=== PATIENT | female | born 1950 | race Caucasian/White ===

== ENCOUNTER → 2016-08-17 | Outpatient (CLI) | payer MEDICARE ==
--- NOTE | 2016-08-17 12:14 | KCIC ---
Bilateral digital screening mammograms with CAD: HISTORY COMPARISON New baseline. FINDINGS Breast density category B. The skin and nipples show no abnormalities. No abnormal lymph nodes are seen in the axilla. The breast parenchyma shows scattered fibroglandular density. There appear to be small nodular parenchymal densities in the 12 o'clock B position of the right breast which are fairly well-circumscribed and may represent cysts but recommend further evaluation with ultrasound. There are no other dominant masses, suspicious calcifications or architectural distortions. Benign appearing calcifications are present IMPRESSION Small nodular parenchymal densities at the 12 o'clock B position of the right breast. Recommend further evaluation with ultrasound. This study was interpreted with the benefit of Computerized Aided Detection (CAD). Mammography is not 100% sensitive in detecting breast cancer. Therefore, a self breast exam and a clinical breast exam are very important. A negative mammogram does not negate a clinically suspicious finding and should not result in a delay in biopsying a clinically suspicious abnormality. BI-RADS category 0: Incomplete. Ultrasound followup is recommended. This patient's information has been entered into a reminder system for the patient to be notified with the results of this examination and a target date for her next mammograms. Electronically signed by: Viviana Escalona MD (Aug 17, 2016 12:13:12)
== END | disposition home or self-care (01) ==
LOC: KCIC MAMMO 10:45
PROVIDERS: ATTEND Internal Medicine
DX: Z12.31 Encounter for screening mammogram for malignant neoplasm of breast (principal)
CPT/HCPCS: 77052; G0202; 77067

== ENCOUNTER → 2016-08-25 | Outpatient (CLI) | payer MEDICARE ==
--- NOTE | 2016-08-25 17:09 | KCIC ---
Right breast ultrasound: Reason for examination: Parenchymal densities on screening mammogram. Comparison is made to mammographic exam dated 08/17/2016. Ultrasound examination of the right breast and axilla was performed. In the 1 o'clock position deep in the breast, there is some very minimal fibrocystic type changes present. No suspicious lesions are seen. No abnormal lymph nodes are seen in the axilla. Impression: Minimal fibrocystic type changes suggested at the 1 o'clock position deep in the tissue. No suspicious abnormalities seen. Recommend 6 month followup with mammograms and ultrasound. BI-RADS category 3: Probably benign. This patient's information has been entered into a reminder system for the patient to be notified with the results of this examination and a target date for her next mammograms. Electronically signed by: Viviana Escalona MD (Aug 25, 2016 17:07:21)
== END | disposition home or self-care (01) ==
LOC: KCIC US 10:46
PROVIDERS: ATTEND Internal Medicine
DX: R92.8 Other abnormal and inconclusive findings on diagnostic imaging of breast (principal)
CPT/HCPCS: 76641

== ENCOUNTER 2020-03-25 00:29 | Inpatient (IN) | payer MEDICARE ==
[~2020-03-25] VITALS: Ht 165.1 cm; Wt 164.6 kg
[~2020-03-25 00:29] MED LIST: AMLO1CAP PO; ATEN100T PO; CELE200C PO; GLIP10TA24 PO; LEVO50TA5 PO; SITA100T PO; TRIA1TAB3 PO
--- NOTE | 2020-03-25 02:48 | PHYS DOC ---
Past Medical History Past Medical History: Arthritis, CHF, Diabetes-Type II, Hypertension, Hyp othyroid Additional Past Medical Histor: chronic back pain, high altitude pulmonary edema Past Surgical History: Knee Replacement Additional Past Surgical Histo: back Smoking Status: Never Smoker Alcohol Use: None Drug Use: None General Adult EDM: Chief Complaint: WEAKNESS/GENERALIZED HPI: HPI: Patient is a 69 year old female who presents with complaints of generalized weakness. Patient states that in the last 3 days she is noted change in her energy levels. She denies any change in her back pain and even though she fell tonight denies any new pain in her back or sacrum. She does complain of bilateral shoulder pain that is chronic as well. She denied any cough, fever, chest pain, change in shortness of breath, nausea or vomiting. Patient does report a decrease in appetite but denies, melena or hematochezia. She also denies any change in urination, vaginal discharge or new rashes. Patient states that she does ambulate at home. She denies any exposure to COVID, change in smell or taste Review of Systems: Review of Systems: Constitutional: Patient denied fever or chills was not aware that she was running a elevated temperature [] Eyes: Denies change in visual acuity. [] HENT: Denies nasal congestion or sore throat. [] Respiratory: Denies cough or chronic unchanged shortness of breath. [] Cardiovascular: Denies chest pain or edema. [] GI: Denies abdominal pain, nausea, vomiting, bloody stools or diarrhea. [] : Denies dysuria. [] Musculoskeletal: Chronic unchanged back pain and joint pain. [] Integument: Denies rash. [] Neurologic: Denies headache, focal weakness or sensory changes. [] Endocrine: Denies polyuria or polydipsia. [] Lymphatic: Denies swollen glands. [] Psychiatric: Denies depression or anxiety. [] Heart Score: Risk Factors: Risk Factors: DM, Current or recent (<one month) smoker, HTN, HLP, family history of CAD, obesity. Risk Scores: Score 0 - 3: 2.5% MACE over next 6 weeks - Discharge Home Score 4 - 6: 20.3% MACE over next 6 weeks - Admit for Clinical Observation Score 7 - 10: 72.7% MACE over next 6 weeks - Early Invasive Strategies Allergies: Allergies: Allergies Coded Allergies Type Severity Reaction Last Updated Verified phenobarbital Allergy Intermediate Rash 03/10/17 Yes metformin Adverse Reaction Intermediate Nausea and Vomiting 03/12/17 Yes Physical Exam: PE: Constitutional: Well developed, well nourished, morbidly obese no acute distress, non-toxic appearance. [] HENT: Normocephalic, atraumatic, bilateral external ears normal, oropharynx moist, no oral exudates, nose normal. [] Eyes: PERRLA, EOMI, conjunctiva normal, no discharge. [] Neck: Normal range of motion, no tenderness, supple, no stridor. [] Cardiovascular: Distant heart tones [] Lungs & Thorax: Clear anteriorly, no respiratory distress, no change to percussion [] Abdomen: Bowel sounds normal, soft, no tenderness, no masses, no pulsatile masses. [] Skin: Warm, dry, no erythema, chronic appearing rash in the bilateral lower ext remities [] Back: No tenderness, no CVA tenderness. [] Extremities: No tenderness, no cyanosis, no clubbing, ROM intact, marked lymphedema bilaterally [] Neurologic: Alert and oriented X 3, normal motor function, normal sensory function, no focal deficits noted. [] Psychologic: Affect normal, judgement normal, mood normal. [] Current Patient Data: Vital Signs: Vital Signs Date Time Temp Pulse Resp B/P (MAP) Pulse Ox O2 Delivery O2 Flow Rate FiO2 03/25/20 00:50 101.1 94 28 154/64 (94) 97 Nasal Cannula 2.0 101.1 EKG: EKG: [] Radiology/Procedures: Radiology/Procedures: [] Course & Med Decision Making: Course & Med Decision Making Pertinent Labs and Imaging studies reviewed. (See chart for details) 0611-the patient was seen and examined. Patient was reevaluated. Patient is doing well here in the emergency department. Review of her laboratory and x-ray data suggest that she may have a community-acquired pneumonia and/or COVID-19 pneumonitis. However her infectious source may be due to urinary tract infection as well. Patient has been worked up and will be admitted for treatment. Started community-acquired antibiotics Zithromax and Rocephin. Patient will be admitted to the hospitalist service. [] Dragon Disclaimer: Dragon Disclaimer: This electronic medical record was generated, in whole or in part, using a voice recognition dictation system. Departure Departure Impression: Primary Impression: Community acquired pneumonia Qualified Codes: J18.9 - Pneumonia, unspecified organism Additional Impressions: Acute cystitis with hematuria Person under investigation for COVID-19 Morbid obesity Referrals: KRISTA ARNOLD MD (PCP) Justicifation of Admission Dx: Justifications for Admission: Justification of Admission Dx: Yes Comments: Community-acquired pneumonia, fever, leukocytosis, Sirs BENITO HUDSON MD Mar 25, 2020 02:48
[2020-03-25] MEDS ORDERED: KETOROLAC 30 MG/ML VIAL. IVP ONE (03:00)
[2020-03-25 03:24] LABS: BILIRUBIN,URINE SMALL (NEG); CLARITY,URINE CLOUDY; COLOR,URINE AMBER; NITRITE,URINE POSITIVE (NEG); PROTEIN,URINE 100 mg/dL (NEG-TRACE)
[2020-03-25 03:30] LABS: SQUAMOUS EPITHELIAL CELL,UR FEW /LPF
[2020-03-25 03:31] LABS: AMORPHOUS SEDIMENT,UR PRESENT /HPF; BACTERIA,URINE MODERATE /HPF (0-FEW)
--- NOTE | 2020-03-25 04:31 | RAD ---
INDICATION: Reason: fever / Spl. Instructions: / History: COMPARISON: March 2017 FINDINGS: Single view of chest obtained. Cardiac silhouette is enlarged with calcific atherosclerosis. The left lung base is obscured by the overlying cardiac silhouette and lack of lateral view. Degenerative changes of the right shoulder. Fullness of the bilateral pulmonary queenie. Interstitial and groundglass opacities bilaterally. IMPRESSION: * Interstitial and groundglass opacities bilaterally which can be seen with mild edema or interstitial infiltrate. * Enlarged cardiomediastinal silhouette as well as fullness of the bilateral pulmonary hilum again seen. Electronically signed by: Jatinder Boyd MD (03/25/2020 4:28 AM) [id number]
[2020-03-25 04:34] LABS: BASO % 0 % (0-3); EOS % 0 % (0-3); HEMATOCRIT 38.9 % (36.0-47.0); HEMOGLOBIN 12.7 g/dL (12.0-15.5); LYMPH # 0.4 x10^3/uL (1.0-4.8); LYMPH % 2 % (24-48); MEAN CORPUSCULAR HEMOGLOBIN 28 pg (25-35); MEAN CORPUSCULAR HGB CONC 33 g/dL (31-37); MEAN CORPUSCULAR VOLUME 86 fL (79-100); MONO # 0.9 x10^3/uL (0.0-1.1); MONO % 5 % (0-9); NEUT % 92 % (31-73); PLATELET COUNT 122 x10^3/uL (140-400); RED BLOOD COUNT 4.53 x10^6/uL (3.50-5.40); RED CELL DISTRIBUTION WIDTH 16.5 % (11.5-14.5); WHITE BLOOD COUNT 17.3 x10^3/uL (4.0-11.0)
[2020-03-25 04:45] LABS: PROTHROMBIN TIME PATIENT 14.9 SEC (11.7-14.0)
[2020-03-25 04:46] LABS: CALCIUM 8.6 mg/dL (8.5-10.1); CREATININE 1.7 mg/dL (0.6-1.0); GFR 29.9; POTASSIUM 3.7 mmol/L (3.5-5.1)
[2020-03-25 04:51] LABS: ALBUMIN 2.8 g/dL (3.4-5.0); ALBUMIN/GLOBULIN RATIO 0.7 (1.0-1.7); TOTAL BILIRUBIN 1.7 mg/dL (0.2-1.0); TOTAL PROTEIN 6.7 g/dL (6.4-8.2)
[2020-03-25 05:37] LABS: % BANDS 22 % (0-9); % EOS 1 % (0-5); % LYMPHS 1 % (24-48); % METAS 1 % (0-0); % MONOS 3 % (0-10); % SEGS 72 % (35-66)
[2020-03-25 05:38] LABS: PLT ESTIMATE DECREASED (ADEQUATE)
[2020-03-25] MEDS ORDERED: ACETAMINOPHEN 325 MG TABLET. PO PRN ×2 (06:15→13:15)
[2020-03-25] MEDS ORDERED: AZITHROMYCIN 500 MG in IV NORMAL SALINE 250ML 250 ML IV ONE (06:30)
[2020-03-25] MEDS ORDERED: cefTRIAXone IV Push 1 GM VIAL. IVP ONE (06:30)
--- NOTE | 2020-03-25 07:27 | PDOC1 ---
History and Physical Date of Admission Date of Admission DATE: 03/25/20 TIME: 07:21 Identification/Chief Complaint Chief Complaint Myalgias, weakness, Shortness of breath, dysuria Source Source: Patient History of Present Illness History of Present Illness Ms Reyes is a 69 yo F w/ PMHx Arthritis, CHF, Diabetes-Type II, Hypertension, Hypothyroid, chronic back pain, obstructive sleep apnea who presents with complaints of generalized weakness and myalgias. She has been more fatigued over the past 3 days leading up to presentation to the ED. She also notes pain and difficulty with urination which is been progressive as well. She notes chronic pain in her coccyx and sacrum and does note she fell prior to coming to ED and her inability to get up is why she contacted EMS. She fell onto her left side and did not strike her head or arm. She does complain of bilateral shoulder pain that is chronic as well. She does note some shortness of breath worse at night, does not wear her home BIPAP, prefers to wear O2. She denied any cough, fever, chest pain, nausea or vomiting. She denies any exposure to COVID, change in smell or taste. Labs significant for WBC 17.3, Hb 12.7, platelets 122, lactic acid 3.1, BNP 1836, bilirubin 1.7, AST 177, albumin 2.8, NA 137, K3.7, BUN 3 9, CR 1.7, glucose 135. CXR shows interstitial opacities bilaterally. She was febrile to 101.1 F, also hypoxic to 84% on room air, placed on 2L NCO2 with improvement. A COVID 19 test was performed in ED. Admitted for further care. Past Medical History Cardiovascular: HTN Endocrine: Diabetes Past Surgical History Past Surgical History: Total knee replacement Family History Family History: Hypertension Social History Smoke: No ALCOHOL: none Drugs: None Current Problem List Problem List Problems Medical Problems: (1) Acute cystitis with hematuria Status: Acute (2) Community acquired pneumonia Status: Acute (3) Morbid obesity Status: Acute (4) Person under investigation for COVID-19 Status: Acute Current Medications Current Medications Current Medications Ketorolac Tromethamine (Toradol 30mg Vial) 30 mg 1X ONCE IVP Last administered on 03/25/20at 04:00; Start 03/25/20 at 03:00; Stop 8/18/20 at 03:01; Status DC Azithromycin 500 mg/Sodium Chloride 250 ml @ 250 mls/hr 1X ONCE IV Last administered on 03/25/20at 06:19; Start 03/25/20 at 06:30; Stop 03/25/20 at 07:29 Ceftriaxone Sodium (Rocephin) 1 gm 1X ONCE IVP Last administered on 03/25/20at 06:18; Start 03/25/20 at 06:30; Stop 03/25/20 at 06:31; Status DC Acetaminophen (Tylenol) 650 mg PRN Q4HRS PRN PO FEVER > 100.3'F; Start 03/25/20 at 06:15; Stop 03/26/20 at 06:14 Active Scripts Active Reported Lotrel 10-20 Mg Capsule (Amlodipine Besylate/Benazepril) 1 Each Capsule 1 Cap PO DAILY Januvia (Sitagliptin Phosphate) 100 Mg Tablet 1 Tab PO DAILY Triamterene-Hctz 37.5-25 Mg Tb (Triamterene/Hydrochlorothiazid) 1 Each Tablet 1 Tab PO BID Glipizide Er (Glipizide) 10 Mg Tab.er.24 1 Tab PO BID Levothyroxine Sodium 50 Mcg Tablet 1 Tab PO DAILY Atenolol 100 Mg Tablet 1 Tab PO DAILY Celebrex (Celecoxib) 200 Mg Capsule 1 Cap PO DAILY Allergies Allergies: Coded Allergies: phenobarbital (Verified Allergy, Intermediate, Rash, 03/10/17) metformin (Verified Adverse Reaction, Intermediate, Nausea and Vomiting, 03/12/17) ROS General: YES: Chills, Fatigue, Malaise; No: Night Sweats, Appetite, Other PSYCHOLOGICAL ROS: No: Anxiety, Behavioral Disorder, Concentration difficultie, Decreased libido, Depression, Disorientation, Hallucinations, Hostility, Irritablity, Memory difficulties, Mood Swings, Obsessive thoughts, Physical abuse, Sexual abuse, Sleep disturbances, Suicidal ideation, Other Eyes: No Blurry vision, No Decreased vision, No Double vision, No Dry eyes, No Excessive tearing, No Eye Pain, No Itchy Eyes, No Loss of vision, No Photophobia, No Scotomata, No Uses contacts, No Uses glasses, No Other HEENT: No: Heacaches, Visual Changes, Hearing change, Nasal congestion, Nasal discharge, Oral lesions, Sinus pain, Sore Throat, Epistaxis, Sneezing, Snoring, Tinnitus, Vertigo, Vocal changes, Other ALLERGY AND IMMUNOLOGY: No: Hives, Insect Bite Sensitivity, Itchy/Watery Eyes, Nasal Congestion, Post Nasal Drip, Seasonal Allergies, Other Hematological and Lymphatic: No: Bleeding Problems, Blood Clots, Blood Transfusions, Brusing, Night Sweats, Pallor, Swollen Lymph Nodes, Other ENDOCRINE: No: Breast Changes, Galactorrhea, Hair Pattern Changes, Hot Flashes, Malaise/lethargy, Mood Swings, Palpitations, Polydipsia/polyuria, Skin Changes, Temperature Intolerance, Unexpected Weight Changes, Other Breast: No New/Changing Breast Lumps, No Nipple changes, No Nipple discharge, No Other Respiratory: YES: Shortness of breath; No: Cough, Hemoptysis, Orthopnea, Pleuritic Pain, SOB with excertion, Sputum Changes, Stridor, Tachypnea, Wheezing, Other Cardiovascular: yes Edema; No Chest Pain, No Palpitations, No Orthopnea, No Paroxysmal Noc. Dyspnea, No Lt Headedness, No Other Gastrointestinal: No Nausea, No Vomiting, No Abdominal Pain, No Diarrhea, No Constipation, No Melena, No Hematochezia, No Other Genitourinary: YES Dysuria, YES Frequency; No Incontinence, No Hematuria, No Retention, No Discharge, No Urgency, No Pain, No Flank Pain, No Other, No , No , No , No , No , No , No Musculoskeletal: No Gait Disturbance, No Joint Pain, No Joint Stiffness, No Joint Swelling, No Muscle Pain, No Muscular Weakness, No Pain In:, No Swelling In:, No Other Neurological: No Behavorial Changes, No Bowel/Bladder ControlChng, No Confusion, No Dizziness, No Gait Disturbance, No Headaches, No Impaired Coord/balance, No Memory Loss, No Numbness/Tingling, No Seizures, No Speech Problems, No Tremors, No Visual Changes, No Weakness, No Other Skin: Yes Dry Skin, Yes Eczema; No Hair Changes, No Lumps, No Mole Changes, No Mottling, No Nail Changes, No Pruritus, No Rash, No Skin Lesion Changes, No Other, No Acne Physical Exam General: Alert, Oriented X3, Cooperative, mild distress HEENT: Atraumatic, PERRLA, EOMI, Mucous membr. moist/pink Lungs: Other (Bibasilar crackles) Heart: S1S2, RRR, no thrills, no rubs, no gallops, no murmurs Abdomen: Normal bowel sounds, Soft, No tenderness, No hepatosplenomegaly, No masses Rectal Exam: not examined Extremities: No clubbing, No cyanosis, Normal pulses, No tenderness/swelling Skin: No rashes, No breakdown, No significant lesion, Other (Xerosis of bilateral LE) Neuro: Normal speech, Strength at 5/5 X4 ext, Normal tone, Sensation intact, Cranial nerves 3-12 NL, Reflexes 2+ Psych/Mental Status: Mental status NL, Mood NL Vitals Vitals Vital Signs Date Time Temp Pulse Resp B/P (MAP) Pulse Ox O2 Delivery O2 Flow Rate FiO2 03/25/20 06:25 72 96 03/25/20 00:50 101.1 28 154/64 (94) Nasal Cannula 2.0 101.1 Labs Labs Laboratory Tests Test 03/25/20 03:18 03/25/20 04:25 Urine Collection Type U cath Urine Color [place] Urine Clarity Cloudy Urine pH 5.0 (<5.0-8.0) Urine Specific [place] 1.015 (1.000-1.030) Urine Protein 100 mg/dL (NEG-TRACE) Urine Glucose (UA) Negative mg/dL (NEG) Urine Ketones (Stick) Trace mg/dL (NEG) Urine Blood Large (NEG) Urine Nitrite Positive (NEG) Urine Bilirubin Small (NEG) Urine Urobilinogen Dipstick 1.0 mg/dL (0.2 mg/dL) Urine Leukocyte Esterase Moderate (NEG) Urine RBC 6-10 /HPF (0-2) Urine WBC 11-20 /HPF (0-4) Urine Squamous Epithelial Cells Few /LPF Urine Amorphous Sediment Present /HPF Urine Bacteria Moderate /HPF (0-FEW) Urine Mucus Slight /LPF White Blood Count 17.3 x10^3/uL (4.0-11.0) Red Blood Count 4.53 x10^6/uL (3.50-5.40) Hemoglobin 12.7 g/dL (12.0-15.5) Hematocrit 38.9 % (36.0-47.0) Mean Corpuscular Volume 86 fL (79-100) Mean Corpuscular Hemoglobin 28 pg (25-35) Mean Corpuscular Hemoglobin Concent 33 g/dL (31-37) Red Cell Distribution Width 16.5 % (11.5-14.5) Platelet Count 122 x10^3/uL (140-400) Neutrophils (%) (Auto) 92 % (31-73) Lymphocytes (%) (Auto) 2 % (24-48) Monocytes (%) (Auto) 5 % (0-9) Eosinophils (%) (Auto) 0 % (0-3) Basophils (%) (Auto) 0 % (0-3) Neutrophils # (Auto) 16.0 x10^3/uL (1.8-7.7) Lymphocytes # (Auto) 0.4 x10^3/uL (1.0-4.8) Monocytes # (Auto) 0.9 x10^3/uL (0.0-1.1) Eosinophils # (Auto) 0.0 x10^3/uL (0.0-0.7) Basophils # (Auto) 0.0 x10^3/uL (0.0-0.2) Segmented Neutrophils % 72 % (35-66) Band Neutrophils % 22 % (0-9) Lymphocytes % 1 % (24-48) Monocytes % 3 % (0-10) Eosinophils % 1 % (0-5) Metamyelocytes % 1 % (0-0) Platelet Estimate Decreased (ADEQUATE) Prothrombin Time 14.9 SEC (11.7-14.0) Prothromb Time International Ratio 1.2 (0.8-1.1) Sodium Level 137 mmol/L (136-145) Potassium Level 3.7 mmol/L (3.5-5.1) Chloride Level 99 mmol/L (98-107) Carbon Dioxide Level 30 mmol/L (21-32) Anion Gap 8 (6-14) Blood Urea Nitrogen 39 mg/dL (7-20) Creatinine 1.7 mg/dL (0.6-1.0) Estimated GFR (Cockcroft-Gault) 29.9 BUN/Creatinine Ratio 23 (6-20) Glucose Level 135 mg/dL (70-99) Lactic Acid Level 3.1 mmol/L (0.4-2.0) Calcium Level 8.6 mg/dL (8.5-10.1) Total Bilirubin 1.7 mg/dL (0.2-1.0) Aspartate Amino Transf (AST/SGOT) 177 U/L (15-37) Alanine Aminotransferase (ALT/SGPT) 46 U/L (14-59) Alkaline Phosphatase 51 U/L (46-116) SA-Qzd-P-Type Natriuretic Peptide 1836 pg/mL (0-124) Total Protein 6.7 g/dL (6.4-8.2) Albumin 2.8 g/dL (3.4-5.0) Albumin/Globulin Ratio 0.7 (1.0-1.7) Lipase 68 U/L (73-393) Laboratory Tests Test 03/25/20 03:18 03/25/20 04:25 Urine Collection Type U cath Urine Color [place]anna Urine Clarity Cloudy Urine pH 5.0 (<5.0-8.0) Urine Specific [place] 1.015 (1.000-1.030) Urine Protein 100 mg/dL (NEG-TRACE) Urine Glucose (UA) Negative mg/dL (NEG) Urine Ketones (Stick) Trace mg/dL (NEG) Urine Blood Large (NEG) Urine Nitrite Positive (NEG) Urine Bilirubin Small (NEG) Urine Urobilinogen Dipstick 1.0 mg/dL (0.2 mg/dL) Urine Leukocyte Esterase Moderate (NEG) Urine RBC 6-10 /HPF (0-2) Urine WBC 11-20 /HPF (0-4) Urine Squamous Epithelial Cells Few /LPF Urine Amorphous Sediment Present /HPF Urine Bacteria Moderate /HPF (0-FEW) Urine Mucus Slight /LPF White Blood Count 17.3 x10^3/uL (4.0-11.0) Red Blood Count 4.53 x10^6/uL (3.50-5.40) Hemoglobin 12.7 g/dL (12.0-15.5) Hematocrit 38.9 % (36.0-47.0) Mean Corpuscular Volume 86 fL (79-100) Mean Corpuscular Hemoglobin 28 pg (25-35) Mean Corpuscular Hemoglobin Concent 33 g/dL (31-37) Red Cell Distribution Width 16.5 % (11.5-14.5) Platelet Count 122 x10^3/uL (140-400) Neutrophils (%) (Auto) 92 % (31-73) Lymphocytes (%) (Auto) 2 % (24-48) Monocytes (%) (Auto) 5 % (0-9) Eosinophils (%) (Auto) 0 % (0-3) Basophils (%) (Auto) 0 % (0-3) Neutrophils # (Auto) 16.0 x10^3/uL (1.8-7.7) Lymphocytes # (Auto) 0.4 x10^3/uL (1.0-4.8) Monocytes # (Auto) 0.9 x10^3/uL (0.0-1.1) Eosinophils # (Auto) 0.0 x10^3/uL (0.0-0.7) Basophils # (Auto) 0.0 x10^3/uL (0.0-0.2) Segmented Neutrophils % 72 % (35-66) Band Neutrophils % 22 % (0-9) Lymphocytes % 1 % (24-48) Monocytes % 3 % (0-10) Eosinophils % 1 % (0-5) Metamyelocytes % 1 % (0-0) Platelet Estimate Decreased (ADEQUATE) Prothrombin Time 14.9 SEC (11.7-14.0) Prothromb Time International Ratio 1.2 (0.8-1.1) Sodium Level 137 mmol/L (136-145) Potassium Level 3.7 mmol/L (3.5-5.1) Chloride Level 99 mmol/L (98-107) Carbon Dioxide Level 30 mmol/L (21-32) Anion Gap 8 (6-14) Blood Urea Nitrogen 39 mg/dL (7-20) Creatinine 1.7 mg/dL (0.6-1.0) Estimated GFR (Cockcroft-Gault) 29.9 BUN/Creatinine Ratio 23 (6-20) Glucose Level 135 mg/dL (70-99) Lactic Acid Level 3.1 mmol/L (0.4-2.0) Calcium Level 8.6 mg/dL (8.5-10.1) Total Bilirubin 1.7 mg/dL (0.2-1.0) Aspartate Amino Transf (AST/SGOT) 177 U/L (15-37) Alanine Aminotransferase (ALT/SGPT) 46 U/L (14-59) Alkaline Phosphatase 51 U/L (46-116) UE-Yup-U-Type Natriuretic Peptide 1836 pg/mL (0-124) Total Protein 6.7 g/dL (6.4-8.2) Albumin 2.8 g/dL (3.4-5.0) Albumin/Globulin Ratio 0.7 (1.0-1.7) Lipase 68 U/L (73-393) Images Images CXR: Cardiac silhouette is enlarged with calcific atherosclerosis. The left lung base is obscured by the overlying cardiac silhouette and lack of lateral view. Degenerative changes of the right shoulder. Fullness of the bilateral pulmonary queenie. Interstitial and groundglass opacities bilaterally. IMPRESSION: * Interstitial and groundglass opacities bilaterally which can be seen with mild edema or interstitial infiltrate. * Enlarged cardiomediastinal silhouette as well as fullness of the bilateral pulmonary hilum again seen. VTE Prophylaxis Ordered VTE Prophylaxis Devices: Yes VTE Pharmacological Prophylaxi: Yes Assessment/Plan Assessment/Plan A/P: Falls and weakness - likely related to acute UTI. Will treat. PT to assess Gait, OT to assess ADLs Dysuria - empiric rocephin given in ED. D/w ID to change to cefepime given history of UTIs Sepsis - 2/2 likely UTI, will f/u blood cultures and COVID 19 testing as well Acute hypoxia - will given IV lasix x1 and wean O2 as tolerated. No cough. Will f/u COVID 19 test results CLAUDIA - likely vasomotor nephropathy from poor self care recently Arthritis - bilateral shoulders. Voltaren topically prn diastolic CHF - seems to have mild acute CHF, will diurese, monitor I/O Diabetes-Type II - hold metformin for CLAUDIA, sliding scale insulin Hypertension - cont home meds, hold CHRISSY for CLAUDIA Hypothyroid - cont levothyroxine Thrombocytopenia - uncertain etiology, will monitor Obstructive sleep apnea - advised to use BIPAP, she will wear nocturnal O2. Transaminitis - likely congestive hepatopathy, however INR and bilirubin as well as albumin are abnormal, possibly NAFLD. Monitor FEN - ADA diet PPX - heparin. monitor platelets FULL CODE Dispo - inpatient 2 midnights. Justicifation of Admission Dx: Justifications for Admission: Justification of Admission Dx: Yes NICOLASA GALLEGOS MD Mar 25, 2020 07:27
--- NOTE | 2020-03-25 12:15 | PDOC ---
Infectious Disease Note Vital Sign Vital Signs Vital Signs Date Time Temp Pulse Resp B/P (MAP) Pulse Ox O2 Delivery O2 Flow Rate FiO2 03/25/20 10:14 70 95 03/25/20 09:00 22 03/25/20 00:50 101.1 154/64 (94) Nasal Cannula 2.0 101.1 Labs Lab Laboratory Tests Test 03/25/20 03:18 03/25/20 04:25 03/25/20 08:32 03/25/20 11:24 Urine Collection Type U cath Urine Color [place] Urine Clarity Cloudy Urine pH 5.0 (<5.0-8.0) Urine Specific [place] 1.015 (1.000-1.030) Urine Protein 100 mg/dL (NEG-TRACE) Urine Glucose (UA) Negative mg/dL (NEG) Urine Ketones (Stick) Trace mg/dL (NEG) Urine Blood Large (NEG) Urine Nitrite Positive (NEG) Urine Bilirubin Small (NEG) Urine Urobilinogen Dipstick 1.0 mg/dL (0.2 mg/dL) Urine Leukocyte Esterase Moderate (NEG) Urine RBC 6-10 /HPF (0-2) Urine WBC 11-20 /HPF (0-4) Urine Squamous Epithelial Cells Few /LPF Urine Amorphous Sediment Present /HPF Urine Bacteria Moderate /HPF (0-FEW) Urine Mucus Slight /LPF White Blood Count 17.3 x10^3/uL (4.0-11.0) Red Blood Count 4.53 x10^6/uL (3.50-5.40) Hemoglobin 12.7 g/dL (12.0-15.5) Hematocrit 38.9 % (36.0-47.0) Mean Corpuscular Volume 86 fL (79-100) Mean Corpuscular Hemoglobin 28 pg (25-35) Mean Corpuscular Hemoglobin Concent 33 g/dL (31-37) Red Cell Distribution Width 16.5 % (11.5-14.5) Platelet Count 122 x10^3/uL (140-400) Neutrophils (%) (Auto) 92 % (31-73) Lymphocytes (%) (Auto) 2 % (24-48) Monocytes (%) (Auto) 5 % (0-9) Eosinophils (%) (Auto) 0 % (0-3) Basophils (%) (Auto) 0 % (0-3) Neutrophils # (Auto) 16.0 x10^3/uL (1.8-7.7) Lymphocytes # (Auto) 0.4 x10^3/uL (1.0-4.8) Monocytes # (Auto) 0.9 x10^3/uL (0.0-1.1) Eosinophils # (Auto) 0.0 x10^3/uL (0.0-0.7) Basophils # (Auto) 0.0 x10^3/uL (0.0-0.2) Segmented Neutrophils % 72 % (35-66) Band Neutrophils % 22 % (0-9) Lymphocytes % 1 % (24-48) Monocytes % 3 % (0-10) Eosinophils % 1 % (0-5) Metamyelocytes % 1 % (0-0) Platelet Estimate Decreased (ADEQUATE) Prothrombin Time 14.9 SEC (11.7-14.0) Prothromb Time International Ratio 1.2 (0.8-1.1) Sodium Level 137 mmol/L (136-145) Potassium Level 3.7 mmol/L (3.5-5.1) Chloride Level 99 mmol/L (98-107) Carbon Dioxide Level 30 mmol/L (21-32) Anion Gap 8 (6-14) Blood Urea Nitrogen 39 mg/dL (7-20) Creatinine 1.7 mg/dL (0.6-1.0) Estimated GFR (Cockcroft-Gault) 29.9 BUN/Creatinine Ratio 23 (6-20) Glucose Level 135 mg/dL (70-99) Lactic Acid Level 3.1 mmol/L (0.4-2.0) 1.4 mmol/L (0.4-2.0) Calcium Level 8.6 mg/dL (8.5-10.1) Total Bilirubin 1.7 mg/dL (0.2-1.0) Aspartate Amino Transf (AST/SGOT) 177 U/L (15-37) Alanine Aminotransferase (ALT/SGPT) 46 U/L (14-59) Alkaline Phosphatase 51 U/L (46-116) BT-Wxw-U-Type Natriuretic Peptide 1836 pg/mL (0-124) Total Protein 6.7 g/dL (6.4-8.2) Albumin 2.8 g/dL (3.4-5.0) Albumin/Globulin Ratio 0.7 (1.0-1.7) Lipase 68 U/L (73-393) Glucose (Fingerstick) 157 mg/dL (70-99) Objective Assessment Leukocytosis UTI - POA Fever CLAUDIA ? CHF Morbid Obesity Plan Plan of Care Add Cefepime Add zyvox incase Enterococcus with CLAUDIA avoid Vanc F/u labs and cults D/w Dr. Solorzano Thank you # [phone] OTTONIEL ELLSWORTH MD Mar 25, 2020 12:15
--- NOTE | 2020-03-25 12:41 | CONS ---
DATE OF CONSULTATION: 03/25/2020 LOCATION: The patient's room is 648. REQUESTING PHYSICIAN: Dr. Solorzano. REASON FOR CONSULTATION: Pneumonitis. HISTORY OF PRESENT ILLNESS: The patient is a 69-year-old female with massive morbid obesity and diabetes, who complained of generalized weakness, slow onset. For the past 3 days. She denies knowing of any fevers or chills or sweats. She has had no gross cough or chest pain. Denies any dysuria, frequency, or urgency. No diarrhea or constipation. She denies any loss of sense of taste or smell. She has not traveled anywhere and has not had any exposure to anybody outside her home. On arrival, she did have a temperature of 101.1. White blood cell count was elevated at 17.3 with a 22% bands. Urinalysis catheter specimen was collected had nitrite was positive. She had a moderate leukocyte esterase, white blood cells were 11-20, few squamous cells, but she had moderate bacteriuria. Chest x-ray was obtained, showed interstitial ground glass opacities bilaterally, enlarged cardiac mediastinal silhouette. She was given a dose of Rocephin and azithromycin and admitted to the hospital. Currently, she is sitting in a chair and is feeling somewhat more comfortable. PAST MEDICAL HISTORY: Positive for previous urinary tract infections with Escherichia coli, history of obstructive sleep apnea, hypertension, type 2 diabetes, morbid obesity altitude sickness with pulmonary edema. PAST SURGICAL HISTORY: Positive for tonsillectomy, breast biopsies, appendectomy, total abdominal hysterectomy with oophorectomy, back surgery x 2, knee surgeries and carpal tunnel surgery. REVIEW OF SYSTEMS: Otherwise negative except as mentioned above. ALLERGIES: LISTED METFORMIN AND PHENOBARBITAL. SOCIAL HISTORY: She is . No tobacco. No exposure history to any ill contacts. FAMILY HISTORY: Positive for hypertension. CURRENT MEDICATIONS: Azithromycin, Rocephin x 1 and TORADOL. PHYSICAL EXAMINATION: VITAL SIGNS: Temperature is 101.1 at presentation, recent pulse of 70, respirations 22, blood pressure was 154/64. She is on 2 liters nasal cannula, satting 95%. CONSTITUTIONAL: She is sitting upright in a chair. She is pleasant, cooperative. She is in no acute distress. She is morbidly obese. HEENT: Pupils are equal and reactive. She has normal conjunctivae. Oral cavity, pharynx is clear. NECK: Supple, no JVD. LUNGS: Clear to auscultation. HEART: S1, S2. ABDOMEN: Obese, soft, nontender, nondistended, GENITOURINARY: No Shaw is in place. EXTREMITIES: Without clubbing, cyanosis. She has chronic stasis changes and chronic nonpitting edema. SKIN: Warm to touch without signs of generalized rash. NEUROLOGIC: She is nonfocal, answers questions, moves all extremities. PSYCHIATRIC: Affect is appropriate. LABORATORY DATA: White count 17.3, hemoglobin 12.7, platelets 122, 72 segs, 22 bands, 1 lymph. Creatinine 1.7, glucose 135, total bilirubin 1.7, AST 177, ALT 46. BNP of 1836. RADIOLOGY: Reviewed in history of present illness. IMPRESSION: 1. Leukocytosis. 2. Urinary tract infection present on admission. 3. Fever. 4. Acute kidney injury. 5. Congestive heart failure. 6. Morbid obesity. RECOMMENDATIONS: We will add cefepime. We will avoid vancomycin given her acute kidney injury. We will add Zyvox in case Enterococcus is present in the urine. We will follow up labs and cultures. This was discussed with Dr. Solorzano and nursing. Thank you for allowing me to see and participate in the patient's care. Should you have further questions, please do not hesitate to contact me. OTTONIEL ELLSWORTH MD DR: HANNAH/fallon JOB#: [id number] / [id number]
[2020-03-25] MEDS ORDERED: POTASSIUM CHLORIDE 20 MEQ TABLET.ER. PO ONE (13:30)
[2020-03-25] MEDS ORDERED: MINERAL OIL/PETROLATUM TOPICAL CREAM 113GM JAR. TP PRN (13:30)
[2020-03-25] MEDS ORDERED: FUROSEMIDE 40 MG/4 ML VIAL. IVP ONE (13:30)
[2020-03-25] MEDS ORDERED: ROSU5TAB12 PO (13:40)
[2020-03-25] MEDS ORDERED: METO-247 PO (13:40)
[2020-03-25] MEDS ORDERED: ASPI-886 PO (13:40)
[2020-03-25] MEDS ORDERED: LEVO50TA78 PO (13:40)
[2020-03-25] MEDS ORDERED: MELO15TA23 PO (13:40)
[2020-03-25 15:10] VITALS: BP 139/58
[2020-03-25] MEDS: CEFEPIME HCL IV Push 1 GM VIAL. IVP SCH ×2 (15:25→22:00)
[2020-03-25] MEDS: LINEZOLID 600 MG TABLET PO SCH ×2 (15:25→21:00)
[2020-03-25] MEDS: HEPARIN for SUB-Q USE 5,000 UNIT/ML VIAL. SQ SCH ×2 (15:46→22:00)
[2020-03-25] MEDS: ATORVASTATIN CALCIUM 20 MG TABLET PO SCH (21:00)
[2020-03-25 21:29] VITALS: BP 112/57
[2020-03-25 23:00] VITALS: BP 136/79
[2020-03-26 03:00] VITALS: BP 111/70
[2020-03-26] MEDS: CEFEPIME HCL IV Push 1 GM VIAL. IVP SCH ×3 (06:37→20:33)
[2020-03-26] MEDS: HEPARIN for SUB-Q USE 5,000 UNIT/ML VIAL. SQ SCH (06:38)
[2020-03-26 07:00] VITALS: BP 119/52
[2020-03-26 07:36] LABS: BASO % 0 % (0-3); EOS # 0.1 x10^3/uL (0.0-0.7); EOS % 1 % (0-3); HEMATOCRIT 38.4 % (36.0-47.0); HEMOGLOBIN 12.5 g/dL (12.0-15.5); LYMPH # 0.7 x10^3/uL (1.0-4.8); LYMPH % 6 % (24-48); MEAN CORPUSCULAR HEMOGLOBIN 28 pg (25-35); MEAN CORPUSCULAR HGB CONC 33 g/dL (31-37); MEAN CORPUSCULAR VOLUME 86 fL (79-100); MONO # 0.9 x10^3/uL (0.0-1.1); MONO % 8 % (0-9); NEUT # 9.6 x10^3/uL (1.8-7.7); NEUT % 85 % (31-73); PLATELET COUNT 102 x10^3/uL (140-400); RED BLOOD COUNT 4.46 x10^6/uL (3.50-5.40); RED CELL DISTRIBUTION WIDTH 16.8 % (11.5-14.5); WHITE BLOOD COUNT 11.4 x10^3/uL (4.0-11.0)
[2020-03-26 08:09] LABS: ALBUMIN 2.9 g/dL (3.4-5.0); CALCIUM 8.4 mg/dL (8.5-10.1); CREATININE 1.6 mg/dL (0.6-1.0); DIRECT BILIRUBIN 0.8 mg/dL (0.0-0.2); GFR 32.1; MAGNESIUM 2.2 mg/dL (1.8-2.4); POTASSIUM 4.6 mmol/L (3.5-5.1); TOTAL BILIRUBIN 1.2 mg/dL (0.2-1.0); TOTAL PROTEIN 6.7 g/dL (6.4-8.2)
[2020-03-26] MEDS: LINEZOLID 600 MG TABLET PO SCH ×2 (08:55→20:33)
[2020-03-26] MEDS: ASPIRIN ENTERIC COATED 81 MG TABLET.DR. PO SCH (08:55)
[2020-03-26] MEDS: LINAGLIPTIN 5 MG TABLET PO SCH (08:55)
[2020-03-26] MEDS: METOPROLOL SUCC 24HR ER 100 MG TAB.ER.24H. PO SCH (08:55)
[2020-03-26] MEDS: LEVOTHYROXINE 50 MCG TABLET PO SCH (08:55)
[2020-03-26] MEDS: amLODIPine BESYLATE 10 MG TABLET PO SCH (08:56)
[2020-03-26] MEDS: ONDANSETRON PF 4 MG/2 ML VIAL. IVP PRN ×2 (08:59→20:32)
[2020-03-26] MEDS ORDERED: ATENOLOL PO SCH (09:00)
--- NOTE | 2020-03-26 09:23 | PDOC ---
Infectious Disease Note Subjective Subjective No F/C/S/ but does have some nausea no Abd pain Some frequency but no dysuria/odor Vital Sign Vital Signs Vital Signs Date Time Temp Pulse Resp B/P (MAP) Pulse Ox O2 Delivery O2 Flow Rate FiO2 03/26/20 08:56 82 119/52 03/26/20 07:00 97.6 23 96 Nasal Cannula 2.0 97.6 Physical Exam PHYSICAL EXAM CONSTITUTIONAL: She is sitting upright in a chair. She is pleasant, cooperative. She is in no acute distress. She is morbidly obese. HEENT: Pupils are equal and reactive. She has normal conjunctivae. Oral cavity, pharynx is clear. NECK: Supple, no JVD. LUNGS: Clear to auscultation.- on HEART: S1, S2. ABDOMEN: Obese, soft, nontender, nondistended, GENITOURINARY: No Shaw is in place. EXTREMITIES: Without clubbing, cyanosis. She has chronic stasis changes and chronic nonpitting edema. SKIN: Warm to touch without signs of generalized rash. NEUROLOGIC: She is nonfocal, answers questions, moves all extremities. PSYCHIATRIC: Affect is appropriate. Labs Lab Laboratory Tests Test 03/25/20 11:24 03/25/20 15:01 03/26/20 04:50 03/26/20 07:22 Glucose (Fingerstick) 157 mg/dL (70-99) 154 mg/dL (70-99) 112 mg/dL (70-99) White Blood Count 11.4 x10^3/uL (4.0-11.0) Red Blood Count 4.46 x10^6/uL (3.50-5.40) Hemoglobin 12.5 g/dL (12.0-15.5) Hematocrit 38.4 % (36.0-47.0) Mean Corpuscular Volume 86 fL (79-100) Mean Corpuscular Hemoglobin 28 pg (25-35) Mean Corpuscular Hemoglobin Concent 33 g/dL (31-37) Red Cell Distribution Width 16.8 % (11.5-14.5) Platelet Count 102 x10^3/uL (140-400) Neutrophils (%) (Auto) 85 % (31-73) Lymphocytes (%) (Auto) 6 % (24-48) Monocytes (%) (Auto) 8 % (0-9) Eosinophils (%) (Auto) 1 % (0-3) Basophils (%) (Auto) 0 % (0-3) Neutrophils # (Auto) 9.6 x10^3/uL (1.8-7.7) Lymphocytes # (Auto) 0.7 x10^3/uL (1.0-4.8) Monocytes # (Auto) 0.9 x10^3/uL (0.0-1.1) Eosinophils # (Auto) 0.1 x10^3/uL (0.0-0.7) Basophils # (Auto) 0.0 x10^3/uL (0.0-0.2) Sodium Level 138 mmol/L (136-145) Potassium Level 4.6 mmol/L (3.5-5.1) Chloride Level 100 mmol/L (98-107) Carbon Dioxide Level 27 mmol/L (21-32) Anion Gap 11 (6-14) Blood Urea Nitrogen 50 mg/dL (7-20) Creatinine 1.6 mg/dL (0.6-1.0) Estimated GFR (Cockcroft-Gault) 32.1 Glucose Level 115 mg/dL (70-99) Calcium Level 8.4 mg/dL (8.5-10.1) Magnesium Level 2.2 mg/dL (1.8-2.4) Total Bilirubin 1.2 mg/dL (0.2-1.0) Direct Bilirubin 0.8 mg/dL (0.0-0.2) Aspartate Amino Transf (AST/SGOT) 257 U/L (15-37) Alanine Aminotransferase (ALT/SGPT) 97 U/L (14-59) Alkaline Phosphatase 56 U/L (46-116) Total Protein 6.7 g/dL (6.4-8.2) Albumin 2.9 g/dL (3.4-5.0) Micro Microbiology 03/25/20 Blood Culture - Preliminary, Resulted NO GROWTH AFTER 1 DAY Objective Assessment Leukocytosis - better UTI - POA Fever - better Transaminitis CLAUDIA - stable ? CHF Morbid Obesity Plan Plan of Care Added Cefepime/ zyvox 03/25 in case Enterococcus with CLAUDIA avoid Vanc Add lipase Await U/S abd F/u labs and cults -urine D/w OTTONIEL Canseco MD Mar 26, 2020 09:23
--- NOTE | 2020-03-26 10:14 | PDOC ---
[employer] PROGRESS NOTE Date of Service DOS: DATE: 03/26/20 TIME: 10:12 Chief Complaint Chief Complaint A/P: Falls and weakness - likely related to acute UTI. Will treat. PT to assess Gait, OT to assess ADLs Dysuria - empiric rocephin given in ED. D/w ID to change to cefepime given history of UTIs Sepsis - 2/2 likely UTI, will f/u blood cultures and COVID 19 testing as well Acute hypoxia - will given IV lasix x1 and wean O2 as tolerated. No cough. Will f/u COVID 19 test results CLAUDIA - likely vasomotor nephropathy from poor self care recently Arthritis - bilateral shoulders. Voltaren topically prn diastolic CHF - seems to have mild acute CHF, will diurese, monitor I/O Diabetes-Type II - hold metformin for CLAUDIA, sliding scale insulin Hypertension - cont home meds, hold CHRISSY for CLAUDIA Hypothyroid - cont levothyroxine Thrombocytopenia - uncertain etiology, will monitor Obstructive sleep apnea - advised to use BIPAP, she will wear nocturnal O2. Transaminitis - likely congestive hepatopathy, however INR and bilirubin as well as albumin are abnormal, possibly NAFLD. Monitor FEN - ADA diet PPX - heparin. monitor platelets FULL CODE Dispo - inpatient 2 midnights. History of Present Illness History of Present Illness Ms Reyes is a 69 yo F w/ PMHx Arthritis, CHF, Diabetes-Type II, Hypertension, Hypothyroid, chronic back pain, obstructive sleep apnea who presents with complaints of generalized weakness and myalgias. She has been more fatigued over the past 3 days leading up to presentation to the ED. She also notes pain and difficulty with urination which is been progressive as well. She notes chronic pain in her coccyx and sacrum and does note she fell prior to coming to ED and her inability to get up is why she contacted EMS. She fell onto her left side and did not strike her head or arm. She does complain of bilateral shoulder pain that is chronic as well. She does note some shortness of breath worse at night, does not wear her home BIPAP, prefers to wear O2. She denied any cough, fever, chest pain, nausea or vomiting. She denies any exposure to COVID, change in smell or taste. Labs significant for WBC 17.3, Hb 12.7, platelets 122, lactic acid 3.1, BNP 1836, bilirubin 1.7, AST 177, albumin 2.8, NA 137, K3.7, BUN 3 9, CR 1.7, glucose 135. CXR shows interstitial opacities bilaterally. She was febrile to 101.1 F, also hypoxic to 84% on room air, placed on 2L NCO2 with improvement. A COVID 19 test was performed in ED. Admitted for further care. Afebrile overnight. She still feels badly has some abdominal pain and nausea. LFTs have increased slightly. CR improved slightly. COVID-19 test returned negative. Plan: Check right upper quadrant ultrasound, check troponin, Stat EKG, continue telemetry Trend LFTs, nausea control continue inpatient Okay to transfer to [facility] on telemetry monitoring, If troponin elevated, start heparin GTT, consult cardiology. Vitals/I&O Vitals/I&O: Vital Signs Date Time Temp Pulse Resp B/P (MAP) Pulse Ox O2 Delivery O2 Flow Rate FiO2 03/26/20 08:56 82 119/52 03/26/20 07:00 97.6 23 96 Nasal Cannula 2.0 97.6 I & O 03/25/20 03/25/20 03/26/20 15:00 23:00 07:00 Intake Total 250 ml Output Total 600 ml Balance 250 ml -600 ml Physical Exam Physical Exam: CONSTITUTIONAL: She is sitting upright in a chair. She is pleasant, cooperative. She is in no acute distress. She is morbidly obese. HEENT: Pupils are equal and reactive. She has normal conjunctivae. Oral cavity, pharynx is clear. NECK: Supple, no JVD. LUNGS: Clear to auscultation.- on HEART: S1, S2. ABDOMEN: Obese, soft, nontender, nondistended, GENITOURINARY: No Shaw is in place. EXTREMITIES: Without clubbing, cyanosis. She has chronic stasis changes and chronic nonpitting edema. SKIN: Warm to touch without signs of generalized rash. NEUROLOGIC: She is nonfocal, answers questions, moves all extremities. PSYCHIATRIC: Affect is appropriate. General: Alert, Oriented X3, Cooperative, mild distress Lungs: Clear Abdomen: Normal bowel sounds, Soft, No tenderness, No hepatosplenomegaly, No masses Extremities: No clubbing, No cyanosis, Normal pulses, No tenderness/swelling Skin: No rashes, No breakdown, No significant lesion, Other (Xerosis of breana ateral LE) Labs Labs: Laboratory Tests Test 03/25/20 11:24 03/25/20 15:01 03/26/20 04:50 03/26/20 07:22 Glucose (Fingerstick) 157 mg/dL (70-99) 154 mg/dL (70-99) 112 mg/dL (70-99) White Blood Count 11.4 x10^3/uL (4.0-11.0) Red Blood Count 4.46 x10^6/uL (3.50-5.40) Hemoglobin 12.5 g/dL (12.0-15.5) Hematocrit 38.4 % (36.0-47.0) Mean Corpuscular Volume 86 fL (79-100) Mean Corpuscular Hemoglobin 28 pg (25-35) Mean Corpuscular Hemoglobin Concent 33 g/dL (31-37) Red Cell Distribution Width 16.8 % (11.5-14.5) Platelet Count 102 x10^3/uL (140-400) Neutrophils (%) (Auto) 85 % (31-73) Lymphocytes (%) (Auto) 6 % (24-48) Monocytes (%) (Auto) 8 % (0-9) Eosinophils (%) (Auto) 1 % (0-3) Basophils (%) (Auto) 0 % (0-3) Neutrophils # (Auto) 9.6 x10^3/uL (1.8-7.7) Lymphocytes # (Auto) 0.7 x10^3/uL (1.0-4.8) Monocytes # (Auto) 0.9 x10^3/uL (0.0-1.1) Eosinophils # (Auto) 0.1 x10^3/uL (0.0-0.7) Basophils # (Auto) 0.0 x10^3/uL (0.0-0.2) Sodium Level 138 mmol/L (136-145) Potassium Level 4.6 mmol/L (3.5-5.1) Chloride Level 100 mmol/L (98-107) Carbon Dioxide Level 27 mmol/L (21-32) Anion Gap 11 (6-14) Blood Urea Nitrogen 50 mg/dL (7-20) Creatinine 1.6 mg/dL (0.6-1.0) Estimated GFR (Cockcroft-Gault) 32.1 Glucose Level 115 mg/dL (70-99) Calcium Level 8.4 mg/dL (8.5-10.1) Magnesium Level 2.2 mg/dL (1.8-2.4) Total Bilirubin 1.2 mg/dL (0.2-1.0) Direct Bilirubin 0.8 mg/dL (0.0-0.2) Aspartate Amino Transf (AST/SGOT) 257 U/L (15-37) Alanine Aminotransferase (ALT/SGPT) 97 U/L (14-59) Alkaline Phosphatase 56 U/L (46-116) Total Protein 6.7 g/dL (6.4-8.2) Albumin 2.9 g/dL (3.4-5.0) Assessment and Plan Assessmemt and Plan Problems Medical Problems: (1) Acute cystitis with hematuria Status: Acute (2) Community acquired pneumonia Status: Acute (3) Morbid obesity Status: Acute (4) Person under investigation for COVID-19 Status: Acute Comment Review of Relevant I have reviewed the following items lexus (where applicable) has been applied. Medications: Current Medications Medications (Trade) Dose Ordered Sig/Idania Route PRN Reason Start Time Stop Time Status Last Admin Dose Admin Cefepime HCl (Maxipime) 1 gm Q8HRS IVP 03/25/20 14:00 03/26/20 06:37 Linezolid (Zyvox) 600 mg BID PO 03/25/20 14:00 03/26/20 08:55 Ondansetron HCl (Zofran) 4 mg PRN Q6HRS PRN IVP NAUSEA/VOMITING 03/25/20 13:15 03/26/20 08:59 Levothyroxine Sodium (Synthroid) 50 mcg DAILY PO 03/26/20 09:00 03/26/20 08:55 Linagliptin (Tradjenta) 5 mg DAILY PO 03/26/20 09:00 03/26/20 08:55 Amlodipine Besylate (Norvasc) 10 mg DAILY PO 03/26/20 09:00 03/26/20 08:56 Furosemide (Lasix) 40 mg 1X ONCE IVP 03/25/20 13:30 03/25/20 13:31 DC 03/25/20 15:25 Potassium Chloride (Klor-Con) 20 meq 1X ONCE PO 03/25/20 13:30 03/25/20 13:31 DC 03/25/20 15:25 Heparin Sodium (Porcine) (Heparin Sodium) 5,000 unit Q8HRS SQ 03/25/20 14:00 03/26/20 06:38 Aspirin (Ecotrin) 81 mg DAILY PO 03/26/20 09:00 03/26/20 08:55 Metoprolol Succinate (Toprol Xl) 100 mg DAILY PO 03/26/20 09:00 03/26/20 08:55 Atorvastatin Calcium (Lipitor) 20 mg QHS PO 03/25/20 21:00 03/25/20 21:00 Justicifation of Admission Dx: Justifications for Admission: Justification of Admission Dx: Yes NICOLASA GALLEGOS MD Mar 26, 2020 10:14
--- NOTE | 2020-03-26 10:15 | NUR ---
Per Dr. Solorzano no need to re-swab pt for COVID.
[2020-03-26 11:10] VITALS: BP 104/59
[2020-03-26] MEDS ORDERED: ANTI-COAG MONITOR BY PHARMACY. MC PRN (12:45)
[2020-03-26] MEDS ORDERED: HEPARIN for IV BOLUS 10,000 UNIT/10 ML VIAL. IV PRN (12:45)
--- NOTE | 2020-03-26 13:50 | RAD ---
EXAM: RIGHT UPPER QUADRANT ULTRASOUND. HISTORY: Right upper quadrant pain. COMPARISON: 01/10/2006. FINDINGS: Sonographic evaluation of the right upper quadrant was performed. Hyperechogenicity of the hepatic parenchyma is consistent with diffuse hepatic steatosis. The liver is enlarged measuring at least 20.6 cm. There are no focal lesions. A gallstone is noted. There is no pericholecystic fluid or wall thickening. There is no sonographic Clark sign. The common duct measures 6 mm. The visualized portions of the head and body of the pancreas reveal no abnormality. The right kidney measures 11.1 cm. Cortical thickness and echogenicity are preserved. There is no hydronephrosis. The visualized portions of the abdominal aorta and inferior vena cava are grossly patent and normal in caliber. IMPRESSION: 1. Cholelithiasis without sonographic evidence of cholecystitis. 2. Diffuse hepatic steatosis and hepatomegaly. Electronically signed by: Damon Castro MD (03/26/2020 1:47 PM) [id number]
[2020-03-26] MEDS: HEPARIN 25,000UTS/250ML PREMIX 250 ML IV PRN ×2 (14:09→22:01)
--- NOTE | 2020-03-26 14:36 | NUR ---
Wound/Ostomy Care Wound Type/Assessment: consult for possible coccyx wound. No open wounds noted on head to toe skin assessment. Coccyx is red and dry but not open, continue with Calazime cream for protection, WC cushion ordered for pt for PU prevention as pt stated that she likes to sit in recliner. BLE extremely dry, pt could benefit from ammonium lactate lotion. WC will sign off for now. Report given to MIHIR Hightower.
--- NOTE | 2020-03-26 15:45 | EKG ---
[facility] [address] [place] [address] Test Date: 2020-03-26 Test Time: 15:43:03 Pat Name: PRATEEK JOYCE Department: Room: 646 1 Gender: F C.O.D. Clerk: STIVEN : 1950 Requested By: NICOLASA GALLEGOS Order Number: [id number] Reading MD: Measurements Intervals [place]ler Rate: 103 P: MN: QRS: -33 QRSD: 120 T: 72 QT: 366 QTc: 482 Interpretive Statements IRREGULAR RHYTHM, NO P-WAVE FOUND ABNORMAL LEFT AXIS DEVIATION R-S TRANSITION ZONE IN V LEADS DISPLACED TO THE LEFT LEFT ANTERIOR FASCICULAR BLOCK LEFT VENTRICULAR HYPERTROPHY T ABNORMALITY IN HIGH LATERAL LEADS ABNORMAL ECG RI6.02 Compared to ECG 03/10/2017 21:18:31 Left anterior fascicular block now present Left ventricular hypertrophy now present T-wave abnormality now present Sinus rhythm no longer present
[2020-03-26 15:48] VITALS: BP 132/41
--- NOTE | 2020-03-26 15:55 | PDOC2 ---
ANA MARCH BROILER CHEF OR COOK 03/26/20 1555: CARDIAC CONSULT DATE OF CONSULT Date of Consult DATE: 03/26/20 TIME: 15:37 REASON FOR CONSULT Reason for Consult: Elevated troponin REFERRING PHYSICIAN Referring Physician: Dr. Solorzano SOURCE Source: Chart review, Patient HISTORY OF PRESENT ILLNESS HISTORY OF PRESENT ILLNESS This is a 69 yo female who presented secondary to nausea, weakness, abdominal pain, and urinary frequency/incontinence. Patient continue to not feel well despite treatment so troponin obtained. Noted to be mildly elevated, which prompted this consult. She denies any chest pain, palpitations, dizziness, SOA, or diaphoresis. Continue with weakness and nausea. UA notable for UTI. Patient transferred to CV and started on heparin gtt. PAST MEDICAL HISTORY Cardiovascular: CHF, HTN, Hyperlipidemia Pulmonary: Other (SAVAGE) Musculoskeletal: Osteoarthritis Endocrine: Diabetes, Hypothyroidism, Other (morbid obesity ) PAST SURGICAL HISTORY Past Surgical History: Appendectomy, Total knee replacement (bilateral ), Hysterectomy FAMILY HISTORY Family History: Hypertension SOCIAL HISTORY Smoke: No ALCOHOL: none Drugs: None Lives: with Family CURRENT MEDICATIONS CURRENT MEDICATIONS Current Medications Medications (Trade) Dose Ordered Sig/Idania Route PRN Reason Start Time Stop Time Status Last Admin Dose Admin Levothyroxine Sodium (Synthroid) 50 mcg DAILY PO 03/26/20 09:00 03/26/20 08:55 Linagliptin (Tradjenta) 5 mg DAILY PO 03/26/20 09:00 03/26/20 08:55 Amlodipine Besylate (Norvasc) 10 mg DAILY PO 03/26/20 09:00 03/26/20 08:56 Aspirin (Ecotrin) 81 mg DAILY PO 03/26/20 09:00 03/26/20 08:55 Metoprolol Succinate (Toprol Xl) 100 mg DAILY PO 03/26/20 09:00 03/26/20 08:55 Atorvastatin Calcium (Lipitor) 20 mg QHS PO 03/25/20 21:00 03/25/20 21:00 Heparin Sodium/ Dextrose 250 ml @ 0 mls/hr CONT PRN IV PER PROTOCOL 03/26/20 12:45 03/26/20 14:09 ALLERGIES ALLERGIES: Coded Allergies: phenobarbital (Verified Allergy, Intermediate, Rash, 03/10/17) metformin (Verified Adverse Reaction, Intermediate, Nausea and Vomiting, 03/12/17) ROS Review of System 14 point ROS conducted with pertinent positives noted above in HPI PHYSICAL EXAM General: Alert, Oriented X3, Cooperative, No acute distress HEENT: Atraumatic, Mucous membr. moist/pink Lungs: Other (diminished bases) Heart: Other (IRR- AFIB, rate controlled) Abdomen: Soft, No tenderness, Other (obese) Extremities: Other (1-2+ bilateral LE edema) Skin: No significant lesion Neuro: Normal speech, Sensation intact Psych/Mental Status: Mental status NL, Mood NL MUSCULOSKELETAL: Osteoarthritic changes both hands VITALS/I&O VITALS/I&O: Vital Signs Date Time Temp Pulse Resp B/P (MAP) Pulse Ox O2 Delivery O2 Flow Rate FiO2 03/26/20 11:10 97.8 65 23 104/59 (74) 98 Nasal Cannula 2.0 97.8 I & O 03/25/20 03/25/20 03/26/20 15:00 23:00 07:00 Intake Total 250 ml Output Total 600 ml Balance 250 ml -600 ml LABS Lab: Laboratory Tests Test 03/26/20 04:50 03/26/20 07:22 03/26/20 11:45 03/26/20 11:54 White Blood Count 11.4 x10^3/uL (4.0-11.0) H Red Blood Count 4.46 x10^6/uL (3.50-5.40) Hemoglobin 12.5 g/dL (12.0-15.5) Hematocrit 38.4 % (36.0-47.0) Mean Corpuscular Volume 86 fL (79-100) Mean Corpuscular Hemoglobin 28 pg (25-35) Mean Corpuscular Hemoglobin Concent 33 g/dL (31-37) Red Cell Distribution Width 16.8 % (11.5-14.5) H Platelet Count 102 x10^3/uL (140-400) L Neutrophils (%) (Auto) 85 % (31-73) H Lymphocytes (%) (Auto) 6 % (24-48) L Monocytes (%) (Auto) 8 % (0-9) Eosinophils (%) (Auto) 1 % (0-3) Basophils (%) (Auto) 0 % (0-3) Neutrophils # (Auto) 9.6 x10^3/uL (1.8-7.7) H Lymphocytes # (Auto) 0.7 x10^3/uL (1.0-4.8) L Monocytes # (Auto) 0.9 x10^3/uL (0.0-1.1) Eosinophils # (Auto) 0.1 x10^3/uL (0.0-0.7) Basophils # (Auto) 0.0 x10^3/uL (0.0-0.2) Sodium Level 138 mmol/L (136-145) Potassium Level 4.6 mmol/L (3.5-5.1) Chloride Level 100 mmol/L (98-107) Carbon Dioxide Level 27 mmol/L (21-32) Anion Gap 11 (6-14) Blood Urea Nitrogen 50 mg/dL (7-20) H Creatinine 1.6 mg/dL (0.6-1.0) H Estimated GFR (Cockcroft-Gault) 32.1 Glucose Level 115 mg/dL (70-99) H Calcium Level 8.4 mg/dL (8.5-10.1) L Magnesium Level 2.2 mg/dL (1.8-2.4) Total Bilirubin 1.2 mg/dL (0.2-1.0) H Direct Bilirubin 0.8 mg/dL (0.0-0.2) H Aspartate Amino Transferase (AST) 257 U/L (15-37) H Alanine Aminotransferase (ALT) 97 U/L (14-59) H Alkaline Phosphatase 56 U/L (46-116) Total Protein 6.7 g/dL (6.4-8.2) Albumin 2.9 g/dL (3.4-5.0) L Lipase 124 U/L (73-393) Glucose (Fingerstick) 112 mg/dL (70-99) H 136 mg/dL (70-99) H Troponin I Quantitative 0.165 ng/mL (0.000-0.055) Laboratory Tests 03/26/20 04:50 Laboratory Tests 03/26/20 04:50 ASSESSMENT/PLAN ASSESSMENT/PLAN 1. Nausea, weakness, abd pain 2. UTI 3. Leukocytosis, lactic acidosis 4. CLAUDIA 5. Mild troponin elevation; possibly type II, demand ischemia with culprits noted above. On heparin gtt 6. Acute on chronic probable diastolic CHF; better compensated following IV Lasix. 7. PAFIB; intermittent AFIB noted on tele. Rate mostly controlled. No known previous h/o AFIB. 8. Hypertension; controlled 9. Hyperlipidemia; statin. Monitor LFTs 10. Transaminitis 11. SAVAGE, morbid obesity 12. Diabetes, II 13. Hypothyroidism Recommendations ASA, statin therapy Lipid panel, TSH Trend troponin Echo to assess LV systolic function Unfortunately, patients weight limits ability to perform further ischemic evaluation here. Continue metoprolol for rate control Anticoagulation with heparin for now Ongoing treatment of UTI Further pending above. NESS BOJORQUEZ MD 03/26/202021: CARDIAC CONSULT ASSESSMENT/PLAN ASSESSMENT/PLAN Patient seen and examined. Agree with SENIOR JAVA PROGRAMMER ANALYST's assessment and plan. Slight trop elevation probably demand ischemia Check 2D echo possible with optison echo contrast to assess LVF and r/o WMA Brief AF episodes on tele noted, we will consider outpatient event monitor Ac on chr diast HF better compensated Dobutamine gtt stress ATUL is an option considering his morbid obesity, to rule out ischemia - will consider as outpatient Continue current treatment for UTI Thank you for your consultation ANA MARCH APRN Mar 26, 2020 15:55 NESS BOJORQUEZ MD Mar 26, 2020 20:22
--- NOTE | 2020-03-26 17:01 | NUR ---
SW following. Reviewed chart and discussed with RN. Pt on 2l 02. Pt on IV Maxipine. Pt COVID negative. ID and cardiology following. SW to follow for discharge planning as needed.
[2020-03-26 19:00] VITALS: BP 113/52
[2020-03-26] MEDS: ATORVASTATIN CALCIUM 20 MG TABLET PO SCH (20:33)
[2020-03-26] MEDS: LACTOBACILLUS RHAMNOSUS GG 1 CAPSULE. PO SCH (20:33)
[2020-03-26] MEDS: AMMONIUM LACTATE 12% TOPICAL LOTION 226GM BOTTLE. TP SCH (20:33)
[2020-03-26 23:00] VITALS: BP 137/52
[2020-03-27 03:00] VITALS: BP 127/57
[2020-03-27 04:50] LABS: BASO # 0.1 x10^3/uL (0.0-0.2); BASO % 1 % (0-3); EOS # 0.5 x10^3/uL (0.0-0.7); EOS % 5 % (0-3); HEMATOCRIT 38.2 % (36.0-47.0); HEMOGLOBIN 12.5 g/dL (12.0-15.5); LYMPH # 1.1 x10^3/uL (1.0-4.8); LYMPH % 12 % (24-48); MEAN CORPUSCULAR HEMOGLOBIN 28 pg (25-35); MEAN CORPUSCULAR HGB CONC 33 g/dL (31-37); MEAN CORPUSCULAR VOLUME 86 fL (79-100); MONO % 12 % (0-9); NEUT # 6.3 x10^3/uL (1.8-7.7); NEUT % 70 % (31-73); PLATELET COUNT 120 x10^3/uL (140-400); RED BLOOD COUNT 4.46 x10^6/uL (3.50-5.40); RED CELL DISTRIBUTION WIDTH 16.3 % (11.5-14.5); WHITE BLOOD COUNT 8.9 x10^3/uL (4.0-11.0)
[2020-03-27 04:59] LABS: ALBUMIN 2.8 g/dL (3.4-5.0); ALBUMIN/GLOBULIN RATIO 0.6 (1.0-1.7); CALCIUM 8.5 mg/dL (8.5-10.1); CREATININE 1.6 mg/dL (0.6-1.0); GFR 32.1; POTASSIUM 4.3 mmol/L (3.5-5.1); TOTAL BILIRUBIN 1.2 mg/dL (0.2-1.0); TOTAL PROTEIN 7.2 g/dL (6.4-8.2)
[2020-03-27] MEDS: CEFEPIME HCL IV Push 1 GM VIAL. IVP SCH ×3 (06:11→21:15)
[2020-03-27 07:00] VITALS: BP 92/58
[2020-03-27] MEDS: AMMONIUM LACTATE 12% TOPICAL LOTION 226GM BOTTLE. TP SCH ×2 (09:00→21:10)
[2020-03-27] MEDS: amLODIPine BESYLATE 10 MG TABLET PO SCH (09:00)
[2020-03-27] MEDS: METOPROLOL SUCC 24HR ER 100 MG TAB.ER.24H. PO SCH (09:05)
[2020-03-27] MEDS: LINEZOLID 600 MG TABLET PO SCH (09:05)
[2020-03-27] MEDS: LEVOTHYROXINE 50 MCG TABLET PO SCH (09:06)
[2020-03-27] MEDS: LINAGLIPTIN 5 MG TABLET PO SCH (09:06)
[2020-03-27] MEDS: LACTOBACILLUS RHAMNOSUS GG 1 CAPSULE. PO SCH ×2 (09:06→21:10)
[2020-03-27] MEDS: ASPIRIN ENTERIC COATED 81 MG TABLET.DR. PO SCH (09:06)
--- NOTE | 2020-03-27 09:21 | PDOC ---
Infectious Disease Note Subjective Subjective No F/C/S/ but does have some nausea still. Had 3 to 4 loose stools overnight and feels tired. no Abd pain Vital Sign Vital Signs Vital Signs Date Time Temp Pulse Resp B/P (MAP) Pulse Ox O2 Delivery O2 Flow Rate FiO2 03/27/20 09:05 95 92/58 03/27/20 07:00 97.1 18 97 Nasal Cannula 2.0 97.1 Physical Exam PHYSICAL EXAM CONSTITUTIONAL: She is sitting upright in a chair. She is pleasant, cooperative. She is in no acute distress. She is morbidly obese. Looks a touch tired HEENT: Pupils are equal and reactive. She has normal conjunctivae. Oral cavity, pharynx is clear. NECK: Supple, no JVD. LUNGS: Clear to auscultation.- on 02 HEART: S1, S2. ABDOMEN: Obese, soft, nontender, nondistended, GENITOURINARY: No Shaw is in place. EXTREMITIES: Without clubbing, cyanosis. She has chronic stasis changes and chronic nonpitting edema. SKIN: Warm to touch without signs of generalized rash. NEUROLOGIC: She is nonfocal, answers questions, moves all extremities. PSYCHIATRIC: Affect is appropriate. Labs Lab Laboratory Tests Test 03/26/20 11:45 03/26/20 11:54 03/26/20 16:48 03/26/20 17:30 Glucose (Fingerstick) 136 mg/dL (70-99) 118 mg/dL (70-99) Troponin I Quantitative 0.165 ng/mL (0.000-0.055) 0.129 ng/mL (0.000-0.055) Thyroid Stimulating Hormone (TSH) 5.582 uIU/mL (0.358-3.74) Test 03/26/20 20:19 03/26/20 20:46 03/27/20 03:25 03/27/20 05:30 Heparin Anti-Xa Act, Unfractionated 0.63 IU/mL (0.30-0.70) 0.86 IU/mL (0.30-0.70) Glucose (Fingerstick) 148 mg/dL (70-99) White Blood Count 8.9 x10^3/uL (4.0-11.0) Red Blood Count 4.46 x10^6/uL (3.50-5.40) Hemoglobin 12.5 g/dL (12.0-15.5) Hematocrit 38.2 % (36.0-47.0) Mean Corpuscular Volume 86 fL (79-100) Mean Corpuscular Hemoglobin 28 pg (25-35) Mean Corpuscular Hemoglobin Concent 33 g/dL (31-37) Red Cell Distribution Width 16.3 % (11.5-14.5) Platelet Count 120 x10^3/uL (140-400) Neutrophils (%) (Auto) 70 % (31-73) Lymphocytes (%) (Auto) 12 % (24-48) Monocytes (%) (Auto) 12 % (0-9) Eosinophils (%) (Auto) 5 % (0-3) Basophils (%) (Auto) 1 % (0-3) Neutrophils # (Auto) 6.3 x10^3/uL (1.8-7.7) Lymphocytes # (Auto) 1.1 x10^3/uL (1.0-4.8) Monocytes # (Auto) 1.0 x10^3/uL (0.0-1.1) Eosinophils # (Auto) 0.5 x10^3/uL (0.0-0.7) Basophils # (Auto) 0.1 x10^3/uL (0.0-0.2) Sodium Level 137 mmol/L (136-145) Potassium Level 4.3 mmol/L (3.5-5.1) Chloride Level 100 mmol/L (98-107) Carbon Dioxide Level 32 mmol/L (21-32) Anion Gap 5 (6-14) Blood Urea Nitrogen 52 mg/dL (7-20) Creatinine 1.6 mg/dL (0.6-1.0) Estimated GFR (Cockcroft-Gault) 32.1 BUN/Creatinine Ratio 33 (6-20) Glucose Level 137 mg/dL (70-99) Calcium Level 8.5 mg/dL (8.5-10.1) Total Bilirubin 1.2 mg/dL (0.2-1.0) Aspartate Amino Transf (AST/SGOT) 179 U/L (15-37) Alanine Aminotransferase (ALT/SGPT) 97 U/L (14-59) Alkaline Phosphatase 64 U/L (46-116) Total Protein 7.2 g/dL (6.4-8.2) Albumin 2.8 g/dL (3.4-5.0) Albumin/Globulin Ratio 0.6 (1.0-1.7) Test 03/27/20 06:59 Glucose (Fingerstick) 130 mg/dL (70-99) Micro FINAL ID= [KLEBSIELLA PNEUMONIAE] Testing Performed by: [facility] [address] [place] [address] For Inquires, the Physician may contact the Microbiology department at [phone] KLEBSIELLA PNEUMONIAE ANTIMICROBIAL SUSCEPTIBILITY Final Comment NEG CARLITOS 56 KLEBSIELLA PNEUMONIAE ANTIBIOTIC RESULT INTERPRETATION AMPICILLIN/SULBACTAM <=4/2 S AMIKACIN <=16 S AMPICILLIN <=8 R* AMOXICILLIN/K CLAVULANATE <=8/4 S AZTREONAM <=4 S CEFTRIAXONE <=1 S CEFTAZIDIME <=1 S CEFOTAXIME <=2 S CEFOXITIN <=8 S CIPROFLOXACIN <=0.25 S CEFEPIME <=2 S CEFUROXIME <=4 S CEFTAZIDIME/AVIBACTAM <=4 S ERTAPENEM <=0.5 S NITROFURANTOIN <=32 S GENTAMICIN <=2 S LEVOFLOXACIN <=0.5 S MEROPENEM <=1 S PIPERACILLIN/TAZOBACTAM <=8 S TRIMETHOPRIM/SULFAMETHOXAZOLE >2/38 R TETRACYCLINE >8 R TOBRAMYCIN <=2 S ABD U/S 03/26 IMPRESSION: 1. Cholelithiasis without sonographic evidence of cholecystitis. 2. Diffuse hepatic steatosis and hepatomegaly. Microbiology 03/25/20 Blood Culture - Preliminary, Resulted NO GROWTH AFTER 1 DAY Objective Assessment Leukocytosis - better UTI - POA - Klebsiella Nausea Fever - better Transaminitis - some better CLAUDIA - stable ? CHF Morbid Obesity Plan Plan of Care Cont Cefepime zyvox 03/25 in case Enterococcus with CLAUDIA avoid Vanc - given Kleb will d/c zyvox today 03/27 Monitor nausea - hopeful improves off zyvox F/u labs and cults -urine May need GI eval D/w OTTONIEL Canseco MD Mar 27, 2020 09:21
--- NOTE | 2020-03-27 09:56 | NUR ---
MADISON following. Reviewed chart and discussed with RN. Pt on 2l 02. Pt on IV Maxipine. Pt COVID negative. Spoke with pt and pt's today and they are agreeable to SNU referral. MADISON phoned and faxed referral to Radha at [facility], , (fax) at request of pt. Patient Choice of Vendor form completed. MAD[facility] to follow. Addendum: 03/27/20 at 1051 by ABBY WALLACE Radha verified referral was received and MADISON requested she submit for insurance authorization if the facility approves pt clinically. Addendum: 03/27/20 at 1123 by ABBY WALLACE [facility] can't accommodate pt per her weight of 250kg. MADISON faxed referral to Bet[facility] with [facility]. Pt agreeable and stated no preference in SNU provider. Addendum: 03/27/20 at 1311 by ABBY WALLACE Pt also declined by [facility] per 250kg as they can't meet her needs.
[2020-03-27 11:00] VITALS: BP 100/43
--- NOTE | 2020-03-27 11:42 | PDOC ---
ANA MARCH ROSALES 03/27/20 1142: CARDIO Progress Notes Date and Time Date of Service 03/27/20 Time of Evaluation 1120 Subjective Subjective: No Chest Pain, No shortness of breath, Other Vitals Vitals Vital Signs Date Time Temp Pulse Resp B/P (MAP) Pulse Ox O2 Delivery O2 Flow Rate FiO2 03/27/20 11:00 97.9 75 18 100/43 (62) 98 Nasal Cannula 2.0 97.9 Weight Weight [ ] Input and Output Intake and Output Intake and Output 03/27/20 07:00 Intake Total 750 ml Output Total 550 ml Balance 200 ml Intake Oral 750 ml Output Urine Total 550 ml # Voids 3 # Bowel Movements 3 Laboratory Labs Laboratory Tests Test 03/26/20 11:45 03/26/20 11:54 03/26/20 16:48 03/26/20 17:30 Glucose (Fingerstick) 136 mg/dL (70-99) 118 mg/dL (70-99) Troponin I Quantitative 0.165 ng/mL (0.000-0.055) 0.129 ng/mL (0.000-0.055) Thyroid Stimulating Hormone (TSH) 5.582 uIU/mL (0.358-3.74) Test 03/26/20 20:19 03/26/20 20:46 03/27/20 03:25 03/27/20 05:30 Heparin Anti-Xa Act, Unfractionated 0.63 IU/mL (0.30-0.70) 0.86 IU/mL (0.30-0.70) Glucose (Fingerstick) 148 mg/dL (70-99) White Blood Count 8.9 x10^3/uL (4.0-11.0) Red Blood Count 4.46 x10^6/uL (3.50-5.40) Hemoglobin 12.5 g/dL (12.0-15.5) Hematocrit 38.2 % (36.0-47.0) Mean Corpuscular Volume 86 fL (79-100) Mean Corpuscular Hemoglobin 28 pg (25-35) Mean Corpuscular Hemoglobin Concent 33 g/dL (31-37) Red Cell Distribution Width 16.3 % (11.5-14.5) Platelet Count 120 x10^3/uL (140-400) Neutrophils (%) (Auto) 70 % (31-73) Lymphocytes (%) (Auto) 12 % (24-48) Monocytes (%) (Auto) 12 % (0-9) Eosinophils (%) (Auto) 5 % (0-3) Basophils (%) (Auto) 1 % (0-3) Neutrophils # (Auto) 6.3 x10^3/uL (1.8-7.7) Lymphocytes # (Auto) 1.1 x10^3/uL (1.0-4.8) Monocytes # (Auto) 1.0 x10^3/uL (0.0-1.1) Eosinophils # (Auto) 0.5 x10^3/uL (0.0-0.7) Basophils # (Auto) 0.1 x10^3/uL (0.0-0.2) Sodium Level 137 mmol/L (136-145) Potassium Level 4.3 mmol/L (3.5-5.1) Chloride Level 100 mmol/L (98-107) Carbon Dioxide Level 32 mmol/L (21-32) Anion Gap 5 (6-14) Blood Urea Nitrogen 52 mg/dL (7-20) Creatinine 1.6 mg/dL (0.6-1.0) Estimated GFR (Cockcroft-Gault) 32.1 BUN/Creatinine Ratio 33 (6-20) Glucose Level 137 mg/dL (70-99) Calcium Level 8.5 mg/dL (8.5-10.1) Total Bilirubin 1.2 mg/dL (0.2-1.0) Aspartate Amino Transf (AST/SGOT) 179 U/L (15-37) Alanine Aminotransferase (ALT/SGPT) 97 U/L (14-59) Alkaline Phosphatase 64 U/L (46-116) Total Protein 7.2 g/dL (6.4-8.2) Albumin 2.8 g/dL (3.4-5.0) Albumin/Globulin Ratio 0.6 (1.0-1.7) Test 03/27/20 06:59 03/27/20 11:35 Glucose (Fingerstick) 130 mg/dL (70-99) 125 mg/dL (70-99) Microbiology Micro Microbiology 03/25/20 Blood Culture - Preliminary, Resulted NO GROWTH AFTER 2 DAYS 03/25/20 Urine Culture - Final, Complete 03/25/20 Antimicrobic Susceptibility - Final, Complete Physical Exam HEENT: Neck Supple W Full Motion Chest: Symmetric LUNGS: Clear to Auscultation, Other (diminished bases) Heart: S1S2, irregularly irregular (AFIB/flutter ) Abdomen: Soft N/T, Other (obese) Extremities: Other (chronic vasculitis. ) Neurology: alert, oriented, follow commands Assessment Assessment 1. Nausea, weakness, abd pain 2. UTI 3. Leukocytosis, lactic acidosis, bacteremia. 4. CLAUDIA 5. Mild troponin elevation; peak 0.165. most probably type II, demand ischemia with culprits noted above. 6. Acute on chronic probable diastolic CHF; better compensated following IV Lasix. 7. PAFIB/flutter; intermittent AFIB/flutter noted on tele. Rate controlled. No known previous h/o AFIB. 8. Hypertension; controlled 9. Hyperlipidemia; statin. Monitor LFTs 10. Transaminitis; improved 11. SAVAGE, morbid obesity 12. Diabetes, II 13. Hypothyroidism Recommendations ASA, statin therapy D/c heparin from a CV standpoint Echo with contrast today to assess LV systolic function Consider outpatient ischemic evaluation with Dobutamine gtt stress ATUL to rule out ischemia Continue metoprolol for rate control Will use ASA therapy for now. Possible poor candidate for OAC given weakness and recent falls. Outpatient event monitor arranged to assess burden, guide therapy Ongoing treatment of UTI, bacteremia Follow up with Dr. Wood as scheduled. Supportive care Continue current treatment for UTI Thank you for your consultation Justicifation of Admission Dx: Justifications for Admission: Justification of Admission Dx: Yes NESS WOOD MD 03/27/20 1543: CARDIO Progress Notes Assessment Assessment Patient seen and examined. Agree with AUTOMOTIVE PARTS INTERPRETER's assessment and plan. Ac on chr diast HF better compensated Slight trop elevation probably demand ischemia Check 2D echo possible with optison echo contrast to assess LVF and r/o WMA Brief AF episodes on tele noted, plan for outpatient event monitor to assess arrhythmia burden Dobutamine gtt stress ATUL is an option considering her morbid obesity, to rule out ischemia - will consider as outpatient Continue current treatment for UTI ANA MARCH APRN Mar 27, 2020 11:42 NESS WOOD MD Mar 27, 2020 15:43
--- NOTE | 2020-03-27 11:57 | PDOC ---
[facility] PROGRESS NOTE Date of Service DOS: DATE: 03/27/20 TIME: 11:56 Chief Complaint Chief Complaint A/P: Falls and weakness - likely related to acute UTI. Will treat. PT to assess Gait, OT to assess ADLs Dysuria - empiric rocephin given in ED. D/w ID to change to cefepime given history of UTIs Sepsis - 2/2 likely UTI, will f/u blood cultures and COVID 19 testing as well Acute hypoxia - will given IV lasix x1 and wean O2 as tolerated. No cough. Will f/u COVID 19 test results CLAUDIA - likely vasomotor nephropathy from poor self care recently Arthritis - bilateral shoulders. Voltaren topically prn diastolic CHF - seems to have mild acute CHF, will diurese, monitor I/O Diabetes-Type II - hold metformin for CLAUDIA, sliding scale insulin Hypertension - cont home meds, hold CHRISSY for CLAUDIA Hypothyroid - cont levothyroxine Thrombocytopenia - uncertain etiology, will monitor Obstructive sleep apnea - advised to use BIPAP, she will wear nocturnal O2. Transaminitis - likely congestive hepatopathy, however INR and bilirubin as well as albumin are abnormal, possibly NAFLD. Monitor FEN - ADA diet PPX - heparin. monitor platelets FULL CODE Dispo - inpatient 2 midnights. History of Present Illness History of Present Illness Ms Reyes is a 69 yo F w/ PMHx Arthritis, CHF, Diabetes-Type II, Hypertension, Hypothyroid, chronic back pain, obstructive sleep apnea who presents with complaints of generalized weakness and myalgias. She has been more fatigued over the past 3 days leading up to presentation to the ED. She also notes pain and difficulty with urination which is been progressive as well. She notes chronic pain in her coccyx and sacrum and does note she fell prior to coming to ED and her inability to get up is why she contacted EMS. She fell onto her left side and did not strike her head or arm. She does complain of bilateral shoulder pain that is chronic as well. She does note some shortness of breath worse at night, does not wear her home BIPAP, prefers to wear O2. She denied any cough, fever, chest pain, nausea or vomiting. She denies any exposure to COVID, change in smell or taste. Labs significant for WBC 17.3, Hb 12.7, platelets 122, lactic acid 3.1, BNP 1836, bilirubin 1.7, AST 177, albumin 2.8, NA 137, K3.7, BUN 3 9, CR 1.7, glucose 135. CXR shows interstitial opacities bilaterally. She was febrile to 101.1 F, also hypoxic to 84% on room air, placed on 2L NCO2 with improvement. A COVID 19 test was performed in ED. Admitted for further care. 03/26: Pain is not improved. Troponin mildly elevated EKG no signs of STEMI. Upper quadrant with gallstones no acute cholecystitis. Afebrile overnight. She still feels badly has some abdominal pain and nausea. LFTs have increased slightly. CR improved slightly. COVID-19 test returned negative. Urine with Klebsiella pneumonia Plan: Trend LFTs, nausea control continue inpatient Okay to transfer to [facility] on telemetry monitoring Vitals/I&O Vitals/I&O: Vital Signs Date Time Temp Pulse Resp B/P (MAP) Pulse Ox O2 Delivery O2 Flow Rate FiO2 03/27/20 11:00 97.9 75 18 100/43 (62) 98 Nasal Cannula 2.0 97.9 I & O 03/26/20 03/26/20 03/27/20 15:00 23:00 07:00 Intake Total 250 ml 500 ml Output Total 200 ml 350 ml Balance -200 ml 250 ml 150 ml Physical Exam Physical Exam: CONSTITUTIONAL: She is sitting upright in a chair. She is pleasant, cooperative. She is in no acute distress. She is morbidly obese. Looks a touch tired HEENT: Pupils are equal and reactive. She has normal conjunctivae. Oral cavity, pharynx is clear. NECK: Supple, no JVD. LUNGS: Clear to auscultation.- on HEART: S1, S2. ABDOMEN: Obese, soft, nontender, nondistended, GENITOURINARY: No Shaw is in place. EXTREMITIES: Without clubbing, cyanosis. She has chronic stasis changes and chronic nonpitting edema. SKIN: Warm to touch without signs of generalized rash. NEUROLOGIC: She is nonfocal, answers questions, moves all extremities. PSYCHIATRIC: Affect is appropriate. General: Alert, Oriented X3, Cooperative, No acute distress Heart: Other (IRR- AFIB, rate controlled) Lungs: Clear Abdomen: Soft, No tenderness, Other (obese) Extremities: Other (1-2+ bilateral LE edema) Skin: No significant lesion Labs Labs: Laboratory Tests Test 03/26/20 16:48 03/26/20 17:30 03/26/20 20:19 03/26/20 20:46 Glucose (Fingerstick) 118 mg/dL (70-99) 148 mg/dL (70-99) Troponin I Quantitative 0.129 ng/mL (0.000-0.055) Heparin Anti-Xa Act, Unfractionated 0.63 IU/mL (0.30-0.70) Test 03/27/20 03:25 03/27/20 05:30 03/27/20 06:59 03/27/20 11:35 White Blood Count 8.9 x10^3/uL (4.0-11.0) Red Blood Count 4.46 x10^6/uL (3.50-5.40) Hemoglobin 12.5 g/dL (12.0-15.5) Hematocrit 38.2 % (36.0-47.0) Mean Corpuscular Volume 86 fL (79-100) Mean Corpuscular Hemoglobin 28 pg (25-35) Mean Corpuscular Hemoglobin Concent 33 g/dL (31-37) Red Cell Distribution Width 16.3 % (11.5-14.5) Platelet Count 120 x10^3/uL (140-400) Neutrophils (%) (Auto) 70 % (31-73) Lymphocytes (%) (Auto) 12 % (24-48) Monocytes (%) (Auto) 12 % (0-9) Eosinophils (%) (Auto) 5 % (0-3) Basophils (%) (Auto) 1 % (0-3) Neutrophils # (Auto) 6.3 x10^3/uL (1.8-7.7) Lymphocytes # (Auto) 1.1 x10^3/uL (1.0-4.8) Monocytes # (Auto) 1.0 x10^3/uL (0.0-1.1) Eosinophils # (Auto) 0.5 x10^3/uL (0.0-0.7) Basophils # (Auto) 0.1 x10^3/uL (0.0-0.2) Sodium Level 137 mmol/L (136-145) Potassium Level 4.3 mmol/L (3.5-5.1) Chloride Level 100 mmol/L (98-107) Carbon Dioxide Level 32 mmol/L (21-32) Anion Gap 5 (6-14) Blood Urea Nitrogen 52 mg/dL (7-20) Creatinine 1.6 mg/dL (0.6-1.0) Estimated GFR (Cockcroft-Gault) 32.1 BUN/Creatinine Ratio 33 (6-20) Glucose Level 137 mg/dL (70-99) Calcium Level 8.5 mg/dL (8.5-10.1) Total Bilirubin 1.2 mg/dL (0.2-1.0) Aspartate Amino Transf (AST/SGOT) 179 U/L (15-37) Alanine Aminotransferase (ALT/SGPT) 97 U/L (14-59) Alkaline Phosphatase 64 U/L (46-116) Total Protein 7.2 g/dL (6.4-8.2) Albumin 2.8 g/dL (3.4-5.0) Albumin/Globulin Ratio 0.6 (1.0-1.7) Heparin Anti-Xa Act, Unfractionated 0.86 IU/mL (0.30-0.70) Glucose (Fingerstick) 130 mg/dL (70-99) 125 mg/dL (70-99) Assessment and Plan Assessmemt and Plan Problems Medical Problems: (1) Acute cystitis with hematuria Status: Acute (2) Community acquired pneumonia Status: Acute (3) Morbid obesity Status: Acute (4) Person under investigation for COVID-19 Status: Acute Comment Review of Relevant I have reviewed the following items lexus (where applicable) has been applied. Medications: Current Medications Medications (Trade) Dose Ordered Sig/Idania Route PRN Reason Start Time Stop Time Status Last Admin Dose Admin Lactobacillus Rhamnosus (Culturelle) 1 cap BID PO 03/26/20 21:00 03/27/20 09:06 Heparin Sodium/ Dextrose 250 ml @ 0 mls/hr CONT PRN IV PER PROTOCOL 03/26/20 12:45 03/26/20 22:01 Lactic Acid (Lac-Hydrin) 1 duncan BID TP 03/26/20 21:00 03/26/20 20:33 Justicifation of Admission Dx: Justifications for Admission: Justification of Admission Dx: Yes NICOLASA GALLEGOS MD Mar 27, 2020 11:57
[2020-03-27] MEDS: HEPARIN for SUB-Q USE 5,000 UNIT/ML VIAL. SQ SCH ×2 (14:22→21:23)
[2020-03-27 15:00] VITALS: BP 119/57
[2020-03-27 19:00] VITALS: BP 105/53
--- NOTE | 2020-03-27 19:40 | NUR ---
Pt sitting up in chair, pt denied pain at this time. Assessment completed vss poc explained call light i n reach will resume care and continue to monitor pt.
[2020-03-27] MEDS: ATORVASTATIN CALCIUM 20 MG TABLET PO SCH (21:10)
[2020-03-27 22:33] VITALS: BP 129/47
[2020-03-28 02:56] VITALS: BP 120/63
[2020-03-28 05:36] LABS: ALBUMIN 2.6 g/dL (3.4-5.0); ALBUMIN/GLOBULIN RATIO 0.6 (1.0-1.7); CALCIUM 8.7 mg/dL (8.5-10.1); CREATININE 1.2 mg/dL (0.6-1.0); GFR 44.7; POTASSIUM 4.6 mmol/L (3.5-5.1); TOTAL BILIRUBIN 0.9 mg/dL (0.2-1.0); TOTAL PROTEIN 7.1 g/dL (6.4-8.2)
[2020-03-28] MEDS: LEVOTHYROXINE 25 MCG TABLET. PO SCH (06:07)
[2020-03-28] MEDS: CEFEPIME HCL IV Push 1 GM VIAL. IVP SCH ×3 (06:07→21:35)
[2020-03-28] MEDS: HEPARIN for SUB-Q USE 5,000 UNIT/ML VIAL. SQ SCH (06:10)
[2020-03-28 07:00] VITALS: BP 137/70
[2020-03-28] MEDS: LACTOBACILLUS RHAMNOSUS GG 1 CAPSULE. PO SCH ×2 (08:30→21:34)
[2020-03-28] MEDS: amLODIPine BESYLATE 10 MG TABLET PO SCH (08:30)
[2020-03-28] MEDS: ASPIRIN ENTERIC COATED 81 MG TABLET.DR. PO SCH (08:30)
[2020-03-28] MEDS: AMMONIUM LACTATE 12% TOPICAL LOTION 226GM BOTTLE. TP SCH ×2 (08:30→21:34)
[2020-03-28] MEDS: LINAGLIPTIN 5 MG TABLET PO SCH (08:30)
[2020-03-28] MEDS: METOPROLOL SUCC 24HR ER 100 MG TAB.ER.24H. PO SCH (08:30)
--- NOTE | 2020-03-28 08:43 | PDOC ---
JULIA CHRISTENSEN REMELT [employer] TANK OPERATOR 03/28/20 0843: CARDIO Progress Notes Date and Time Date of Service 03/28/2020 Time of Evaluation 1200 Subjective Subjective: No Chest Pain, No shortness of breath, No Palpitations Vitals Vitals Vital Signs Date Time Temp Pulse Resp B/P (MAP) Pulse Ox O2 Delivery O2 Flow Rate FiO2 03/28/20 08:30 105 137/70 03/28/20 02:56 96.6 18 96 Nasal Cannula 2.0 96.6 Weight Weight [ ] Input and Output Intake and Output Intake and Output 03/28/20 07:00 Output Total 350 ml Balance -350 ml Output Urine Total 350 ml # Bowel Movements 2 Laboratory Labs Laboratory Tests Test 03/27/20 11:35 03/27/20 17:02 03/27/20 20:16 03/28/20 04:00 Glucose (Fingerstick) 125 mg/dL (70-99) 133 mg/dL (70-99) 196 mg/dL (70-99) Sodium Level 135 mmol/L (136-145) Potassium Level 4.6 mmol/L (3.5-5.1) Chloride Level 102 mmol/L (98-107) Carbon Dioxide Level 25 mmol/L (21-32) Anion Gap 8 (6-14) Blood Urea Nitrogen 42 mg/dL (7-20) Creatinine 1.2 mg/dL (0.6-1.0) Estimated GFR (Cockcroft-Gault) 44.7 BUN/Creatinine Ratio 35 (6-20) Glucose Level 124 mg/dL (70-99) Calcium Level 8.7 mg/dL (8.5-10.1) Total Bilirubin 0.9 mg/dL (0.2-1.0) Aspartate Amino Transf (AST/SGOT) 105 U/L (15-37) Alanine Aminotransferase (ALT/SGPT) 96 U/L (14-59) Alkaline Phosphatase 63 U/L (46-116) Total Protein 7.1 g/dL (6.4-8.2) Albumin 2.6 g/dL (3.4-5.0) Albumin/Globulin Ratio 0.6 (1.0-1.7) Test 03/28/20 08:08 Glucose (Fingerstick) 133 mg/dL (70-99) Microbiology Micro Microbiology 03/25/20 Blood Culture - Preliminary, Resulted NO GROWTH AFTER 3 DAYS 03/25/20 Urine Culture - Final, Complete 03/25/20 Antimicrobic Susceptibility - Final, Complete Physical Exam HEENT: Neck Supple W Full Motion Chest: Symmetric LUNGS: Other (diminished bases) Heart: irregularly irregular (atrial flutter) Abdomen: Soft N/T, Other (obese) Extremities: Other (chronic lymphedema) Neurology: alert, oriented, follow commands Assessment Assessment 1. Nausea, weakness, abd pain: better 2. UTI 3. Leukocytosis, lactic acidosis, bacteremia. 4. CLAUDIA: much improved 5. Mild troponin elevation; peak 0.165. most probably type II, demand ischemia with culprits noted above. 6. Acute on chronic probable diastolic CHF; better compensated 7. PAFIB/flutter; maintaing rate controlled atrial flutter 8. Hypertension; controlled 9. Hyperlipidemia 10. Transaminitis; improved 11. SAVAGE, morbid obesity 12. Diabetes, II 13. Hypothyroidism Recommendations 1. ASA, statin therapy. Will start on coumadin for stroke prevention. Not ideal for DOAC due to significant wt. 2. Echo with contrast to assess LV systolic function 3. Consider outpatient ischemic evaluation with Dobutamine gtt stress ATUL to rule out ischemia. Also potential outpt CVN if no conversion after sufficient anticoagulation 4. Continue metoprolol for rate control 5. Ongoing treatment of UTI, bacteremia 6. Follow up with Dr. Bojorquez as scheduled. 7. Discussed compliance of CPAP as she does not use this claiming due to recliner use. Justicifation of Admission Dx: Justifications for Admission: Justification of Admission Dx: Yes NESS BOJORQUEZ MD 03/28/20 1746: CARDIO Progress Notes Assessment Assessment Patient seen and examined. Agree with SPIKE MAKER's assessment and plan. Ac on chr diast HF better compensated Slight trop elevation probably demand ischemia 2D echo showed LVEF 50 to 55%. Plan outpatient event monitor and possibly dobutamine ATUL Okay for DC from cardiac standpoint. Follow-up with our office as scheduled. JULIA CHRISTENSEN APRN Mar 28, 2020 08:43 NESS BOJORQUEZ MD Mar 28, 2020 17:46
[2020-03-28] MEDS: UREA 40% TOPICAL CREAM 28.3GM TUBE. TP SCH (09:00)
--- NOTE | 2020-03-28 09:20 | PDOC ---
Infectious Disease Note Subjective Subjective No F/C/S/ but does have some nausea still started back last pm. Also still loose stools overnight and feels tired. no Abd pain. Some better Vital Sign Vital Signs Vital Signs Date Time Temp Pulse Resp B/P (MAP) Pulse Ox O2 Delivery O2 Flow Rate FiO2 03/28/20 08:30 105 137/70 03/28/20 07:00 97.2 19 95 Nasal Cannula 4.0 97.2 Physical Exam PHYSICAL EXAM CONSTITUTIONAL: She is sitting upright in a chair. She is pleasant, cooperative. She is in no acute distress. She is morbidly obese. Looks a touch tired HEENT: Pupils are equal and reactive. She has normal conjunctivae. Oral cavity, pharynx is clear. NECK: Supple, no JVD. LUNGS: Clear to auscultation.- on 02 HEART: S1, S2. ABDOMEN: Obese, soft, nontender, nondistended, GENITOURINARY: No Shaw is in place. EXTREMITIES: Without clubbing, cyanosis. She has chronic stasis changes and chronic nonpitting edema. SKIN: Warm to touch without signs of generalized rash. NEUROLOGIC: She is nonfocal, answers questions, moves all extremities. PSYCHIATRIC: Affect is appropriate. Labs Lab Laboratory Tests Test 03/27/20 11:35 03/27/20 17:02 03/27/20 20:16 03/28/20 04:00 Glucose (Fingerstick) 125 mg/dL (70-99) 133 mg/dL (70-99) 196 mg/dL (70-99) Sodium Level 135 mmol/L (136-145) Potassium Level 4.6 mmol/L (3.5-5.1) Chloride Level 102 mmol/L (98-107) Carbon Dioxide Level 25 mmol/L (21-32) Anion Gap 8 (6-14) Blood Urea Nitrogen 42 mg/dL (7-20) Creatinine 1.2 mg/dL (0.6-1.0) Estimated GFR (Cockcroft-Gault) 44.7 BUN/Creatinine Ratio 35 (6-20) Glucose Level 124 mg/dL (70-99) Calcium Level 8.7 mg/dL (8.5-10.1) Total Bilirubin 0.9 mg/dL (0.2-1.0) Aspartate Amino Transf (AST/SGOT) 105 U/L (15-37) Alanine Aminotransferase (ALT/SGPT) 96 U/L (14-59) Alkaline Phosphatase 63 U/L (46-116) Total Protein 7.1 g/dL (6.4-8.2) Albumin 2.6 g/dL (3.4-5.0) Albumin/Globulin Ratio 0.6 (1.0-1.7) Test 03/28/20 08:08 Glucose (Fingerstick) 133 mg/dL (70-99) Micro FINAL ID= [KLEBSIELLA PNEUMONIAE] Testing Performed by: [facility] [address] [place] [address] For Inquires, the Physician may contact the Microbiology department at [phone] KLEBSIELLA PNEUMONIAE ANTIMICROBIAL SUSCEPTIBILITY Final Comment NEG CARLITOS 56 KLEBSIELLA PNEUMONIAE ANTIBIOTIC RESULT INTERPRETATION AMPICILLIN/SULBACTAM <=4/2 S AMIKACIN <=16 S AMPICILLIN <=8 R* AMOXICILLIN/K CLAVULANATE <=8/4 S AZTREONAM <=4 S CEFTRIAXONE <=1 S CEFTAZIDIME <=1 S CEFOTAXIME <=2 S CEFOXITIN <=8 S CIPROFLOXACIN <=0.25 S CEFEPIME <=2 S CEFUROXIME <=4 S CEFTAZIDIME/AVIBACTAM <=4 S ERTAPENEM <=0.5 S NITROFURANTOIN <=32 S GENTAMICIN <=2 S LEVOFLOXACIN <=0.5 S MEROPENEM <=1 S PIPERACILLIN/TAZOBACTAM <=8 S TRIMETHOPRIM/SULFAMETHOXAZOLE >2/38 R TETRACYCLINE >8 R TOBRAMYCIN <=2 S ABD U/S 03/26 IMPRESSION: 1. Cholelithiasis without sonographic evidence of cholecystitis. 2. Diffuse hepatic steatosis and hepatomegaly. Microbiology 03/25/20 Blood Culture - Preliminary, Resulted NO GROWTH AFTER 1 DAY Objective Assessment Kleb Vericola sepsis - 03/25 Leukocytosis - better UTI - POA - Klebsiella pneum Nausea - was better but returned last pm Fever - better Transaminitis - some better CLAUDIA - stable ? CHF Morbid Obesity Plan Plan of Care Cont Cefepime D/c zyvox 03/25 - 03/27 Monitor nausea/loose stool - no F or cramps F/u labs and cults -urine May need GI eval D/w OTTONIEL Canseco MD Mar 28, 2020 09:20
[2020-03-28] MEDS ORDERED: PERFLUTREN PROTEIN-A MICROSPHR 0.22 MG/ML 3 ML VIAL. IV ONE ×2 (10:06→11:00)
[2020-03-28 11:00] VITALS: BP 135/64
--- NOTE | 2020-03-28 12:23 | PDOC ---
[employer] PROGRESS NOTE Date of Service DOS: DATE: 03/28/20 TIME: 12:21 Chief Complaint Chief Complaint A/P: Gram negative bacteremia - Klebsiella variicola in blood. ID consulted Falls and weakness - likely related to acute UTI. Will treat. PT to assess Gait, OT to assess ADLs Dysuria - empiric rocephin given in ED. D/w ID to change to cefepime given history of UTIs Sepsis - 2/2 likely UTI, will f/u blood cultures and COVID 19 testing as well Acute hypoxia - will given IV lasix x1 and wean O2 as tolerated. No cough. Will f/u COVID 19 test results CLAUDIA - likely vasomotor nephropathy from poor self care recently Arthritis - bilateral shoulders. Voltaren topically prn diastolic CHF - seems to have mild acute CHF, will diurese, monitor I/O Diabetes-Type II - hold metformin for CLAUDIA, sliding scale insulin Hypertension - cont home meds, hold CHRISSY for CLAUDIA Hypothyroid - cont levothyroxine Thrombocytopenia - uncertain etiology, will monitor Obstructive sleep apnea - advised to use BIPAP, she will wear nocturnal O2. Transaminitis - likely congestive hepatopathy, however INR and bilirubin as well as albumin are abnormal, possibly NAFLD. Monitor FEN - ADA diet PPX - heparin. monitor platelets FULL CODE Dispo - inpatient 2 midnights. History of Present Illness History of Present Illness Ms Reyes is a 69 yo F w/ PMHx Arthritis, CHF, Diabetes-Type II, Hypertension, Hypothyroid, chronic back pain, obstructive sleep apnea who presents with complaints of generalized weakness and myalgias. She has been more fatigued over the past 3 days leading up to presentation to the ED. She also notes pain and difficulty with urination which is been progressive as well. She notes chronic pain in her coccyx and sacrum and does note she fell prior to coming to ED and her inability to get up is why she contacted EMS. She fell onto her left side and did not strike her head or arm. She does complain of bilateral maricruz ulder pain that is chronic as well. She does note some shortness of breath worse at night, does not wear her home BIPAP, prefers to wear O2. She denied any cough, fever, chest pain, nausea or vomiting. She denies any exposure to COVID, change in smell or taste. Labs significant for WBC 17.3, Hb 12.7, platelets 122, lactic acid 3.1, BNP 1836, bilirubin 1.7, AST 177, albumin 2.8, NA 137, K3.7, BUN 3 9, CR 1.7, glucose 135. CXR shows interstitial opacities bilaterally. She was febrile to 101.1 F, also hypoxic to 84% on room air, placed on 2L NCO2 with improvement. A COVID 19 test was performed in ED. Admitted for further care. 03/26: Pain is not improved. Troponin mildly elevated EKG no signs of STEMI. Upper quadrant with gallstones no acute cholecystitis. 03/27: Afebrile overnight. She still feels badly has some abdominal pain and nausea. LFTs have increased slightly. CR improved slightly. COVID-19 test returned negative. Urine with Klebsiella pneumonia Afebrile. In continued a flutter. Plans for echo and starting Coumadin today she could not take NOAC due to weight. She feels a little better but is having loose bowels. Blood cultures returned positive for Klebsiella. Plan: Trend LFTs, nausea control continue inpatient C. diff if diarrhea continues Okay to transfer to [facility] on telemetry monitoring Vitals/I&O Vitals/I&O: Vital Signs Date Time Temp Pulse Resp B/P (MAP) Pulse Ox O2 Delivery O2 Flow Rate FiO2 03/28/20 11:00 96.3 90 19 135/64 (87) 94 Nasal Cannula 2.0 96.3 I & O 03/27/20 03/27/20 03/28/20 15:00 23:00 07:00 Output Total 350 ml Balance -350 ml Physical Exam Physical Exam: CONSTITUTIONAL: She is sitting upright in a chair. She is pleasant, cooperative. She is in no acute distress. She is morbidly obese. Looks a touch tired HEENT: Pupils are equal and reactive. She has normal conjunctivae. Oral cavity, pharynx is clear. NECK: Supple, no JVD. LUNGS: Clear to auscultation.- on HEART: S1, S2. ABDOMEN: Obese, soft, nontender, nondistended, GENITOURINARY: No Shaw is in place. EXTREMITIES: Without clubbing, cyanosis. She has chronic stasis changes and chronic nonpitting edema. SKIN: Warm to touch without signs of generalized rash. NEUROLOGIC: She is nonfocal, answers questions, moves all extremities. PSYCHIATRIC: Affect is appropriate. General: Alert, Oriented X3, Cooperative, No acute distress Heart: Other (IRR- AFIB, rate controlled) Lungs: Clear Abdomen: Soft, No tenderness, Other (obese) Extremities: Other (1-2+ bilateral LE edema) Skin: No significant lesion Labs Labs: Laboratory Tests Test 03/27/20 17:02 03/27/20 20:16 03/28/20 04:00 03/28/20 08:08 Glucose (Fingerstick) 133 mg/dL (70-99) 196 mg/dL (70-99) 133 mg/dL (70-99) Sodium Level 135 mmol/L (136-145) Potassium Level 4.6 mmol/L (3.5-5.1) Chloride Level 102 mmol/L (98-107) Carbon Dioxide Level 25 mmol/L (21-32) Anion Gap 8 (6-14) Blood Urea Nitrogen 42 mg/dL (7-20) Creatinine 1.2 mg/dL (0.6-1.0) Estimated GFR (Cockcroft-Gault) 44.7 BUN/Creatinine Ratio 35 (6-20) Glucose Level 124 mg/dL (70-99) Calcium Level 8.7 mg/dL (8.5-10.1) Total Bilirubin 0.9 mg/dL (0.2-1.0) Aspartate Amino Transf (AST/SGOT) 105 U/L (15-37) Alanine Aminotransferase (ALT/SGPT) 96 U/L (14-59) Alkaline Phosphatase 63 U/L (46-116) Total Protein 7.1 g/dL (6.4-8.2) Albumin 2.6 g/dL (3.4-5.0) Albumin/Globulin Ratio 0.6 (1.0-1.7) Test 03/28/20 10:56 Glucose (Fingerstick) 168 mg/dL (70-99) Assessment and Plan Assessmemt and Plan Problems Medical Problems: (1) Acute cystitis with hematuria Status: Acute (2) Community acquired pneumonia Status: Acute (3) Morbid obesity Status: Acute (4) Person under investigation for COVID-19 Status: Acute Comment Review of Relevant I have reviewed the following items lexus (where applicable) has been applied. Medications: Current Medications Medications (Trade) Dose Ordered Sig/Idania Route PRN Reason Start Time Stop Time Status Last Admin Dose Admin Levothyroxine Sodium (Synthroid) 25 mcg DAILY06 PO 03/28/20 06:00 03/28/20 06:07 Heparin Sodium (Porcine) (Heparin Sodium) 5,000 unit Q8HRS SQ 03/27/20 14:00 03/28/20 06:10 Justicifation of Admission Dx: Justifications for Admission: Justification of Admission Dx: Yes NICOLASA GALLEGOS MD Mar 28, 2020 12:22
--- NOTE | 2020-03-28 12:38 | NUR ---
Pharmacy Warfarin Dosing Note S:Pharmacy consulted to assist with anticoagulation therapy started 03/28/20 with target INR: 2 -3 O:PRATEEK JOYCE is a 69 year old F with Atrial Fibrillation LABS: Last INR: 1.2 Last HGB: 12.5 Last HCT: Last PLT: 120 Last dose of given on at Previous Regimen: Vitamin K given: N Drug Interaction Changes: Ongoing Drug Interactions: A:INR of 1.2 is below desired range. Target range for this patient is: 2 -3 P: Warfarin dose: 7.5 mg Today at 1600 Bridge Therapy: Next INR due in am Pharmacy anticoagulation service will continue to follow. BROOKE SIERRA RPH, 03/28/20 0932
--- NOTE | 2020-03-28 13:57 | CARD ---
MR#: [id number] Date of Study: 03/28/2020 Ordering Physician: ANA MARCH, Referring Physician: ANA MARCH, Tech: Meryl Olson APPROVED REPORT EXAM: Two-dimensional echocardiogram with contrast. Other Information Quality : AverageHR: 88bpm Technically limited study due to morbid obesity INDICATION Elevated Troponin RISK FACTORS Hypertension Hyperlipidemia Diabetes 2D DIMENSIONS RVDd3.2 (2.9-3.5cm)Left Atrium(2D)3.6 (1.6-4.0cm) IVSd1.2 (0.7-1.1cm)Aortic Root(2D)2.8 (2.0-3.7cm) LVDd4.8 (3.9-5.9cm)LVOT Diameter1.9 (1.8-2.4cm) PWd1.0 (0.7-1.1cm)LVDs3.2 (2.5-4.0cm) FS (%) 34.4 %SV68.8 ml Aortic Valve AoV Peak Michael.139.7cm/sAoV VTI26.7cm AO Peak GR.7.8mmHgLVOT Peak Michael.108.7cm/s LVOT VTI 21.01cmAO Mean GR.5mmHg EZRA (VMAX)1.92an0MPZ (VTI)2.24cm2 Mitral Valve MV E Zkoyczel96.2cm/sMV DECEL [id number] MV A Zkisobbj49.3cm/sMV E Mean Gr.1mmHg MV LRH05caX/A Ratio1.8 MVA (PHT)3.43cm2 TDI E/Lateral E'8.1E/Medial E'10.3 Pulmonary Valve PV Peak Ksoqgcvj32.6cm/sPV Peak Grad.4mmHg Tricuspid Valve TR P. Okqqqcbx856kk/sRAP GUOXLIUJ0skEk TR Peak Gr.62zzDaORJD31gsEf LEFT VENTRICLE Technically difficult study. The left ventricle is normal size. There is normal left ventricular wal l thickness. The left ventricular systolic function is normal and the ejection fraction is within nor mal range. LV ejection fraction is 50-55%. Septal motion consistent with conduction abnormality. The left ventricular diastolic function and filling is normal for age. RIGHT VENTRICLE The right ventricle is borderline dilated. There is normal right ventricular wall thickness. The righ t ventricular systolic function is normal. ATRIA The left atrium is mildly dilated. The right atrium is borderline dilated. The interatrial septum is intact with no evidence for an atrial septal defect or patent foramen ovale as noted on 2-D or Dopple r imaging. AORTIC VALVE The aortic valve is calcified but opens well. Doppler and Color Flow revealed no significant aortic r egurgitation. There is no significant aortic valvular stenosis. Calculated aortic valve area is 2.16 cm2 with maximum pressure gradient of 9 mmHg and mean pressure gradient of 5 mmHg. MITRAL VALVE The mitral valve is normal in structure and function. There is no evidence of mitral valve prolapse. There is no mitral valve stenosis. Doppler and Color Flow revealed trace to mild mitral valve regurgi tation noted. TRICUSPID VALVE The tricuspid valve is not well visualized. Doppler and Color Flow revealed mild tricuspid regurgitat ion with an estimated PAP of 58 mmHg. There is no tricuspid valve stenosis. PULMONIC VALVE The pulmonic valve is not well visualized. Doppler and Color Flow revealed no pulmonic valvular regur gitation. GREAT VESSELS The aortic root is normal in size. The IVC is normal in size and collapses >50% with inspiration. PERICARDIAL EFFUSION There is no evidence of significant pericardial effusion. Critical Notification Critical Value: No <Conclusion> Technically difficult study. The left ventricle is normal size. The left ventricular systolic function is normal and the ejection fraction is within normal range. LV ejection fraction is 50-55%. Septal motion consistent with conduction abnormality. Doppler and Color Flow revealed no significant aortic regurgitation. There is no significant aortic valvular stenosis. Doppler and Color Flow revealed trace to mild mitral valve regurgitation. Doppler and Color Flow revealed mild tricuspid regurgitation with an estimated PAP of 58 mmHg. Signed by : Alfonso Zuniga MD Electronically Approved : 03/28/2020 13:56:46
[2020-03-28 14:40] VITALS: BP 126/61
--- NOTE | 2020-03-28 15:08 | NUR ---
SW following. Reviewed chart and discussed with RN. Pt remains on IV abx and 02. Spoke with pt to let her know denials x2 for SNU. SW phoned and faxed referral to [facility] per approval from pt. Pt stated her preference is home with [facility] as she has had them in the past. Pt agreeable to considering acute rehab and is working with PT/OT at the hospital. SW completed a new Patient Choice of Vendor form. SW to continue following for discharge planning.
[2020-03-28] MEDS: WARFARIN 7.5 MG TABLET. PO SCH (17:23)
--- NOTE | 2020-03-28 18:46 | NUR ---
Patient transferred to second floor room 258 at around 1830. Report given to Keerthi RN.
--- NOTE | 2020-03-28 18:59 | NUR ---
Recvd patient transfer to 248. Patient settled in room, up in recliner. Patients yessy bed was not able to fit out of the door to transfer down with her. Patient stated she prefers the the recliner anyway. Patient stated she has no complaints of pain but does feel weak and tired.
[2020-03-28 19:00] VITALS: BP 137/61
--- NOTE | 2020-03-28 19:40 | NUR ---
Pt sitting up in chair,assessment completed vss poc eplained pt denied pain at this time will resume care and continue to monitor pt,Call light in reach.
[2020-03-28] MEDS: ATORVASTATIN CALCIUM 20 MG TABLET PO SCH (21:34)
[2020-03-28 23:06] VITALS: BP 122/62
[2020-03-29 03:23] VITALS: BP 123/65
[2020-03-29 05:07] LABS: BASO # 0.1 x10^3/uL (0.0-0.2); BASO % 1 % (0-3); EOS # 0.8 x10^3/uL (0.0-0.7); EOS % 8 % (0-3); HEMATOCRIT 36.2 % (36.0-47.0); HEMOGLOBIN 11.9 g/dL (12.0-15.5); LYMPH # 1.6 x10^3/uL (1.0-4.8); LYMPH % 16 % (24-48); MEAN CORPUSCULAR HEMOGLOBIN 28 pg (25-35); MEAN CORPUSCULAR HGB CONC 33 g/dL (31-37); MEAN CORPUSCULAR VOLUME 86 fL (79-100); MONO # 1.5 x10^3/uL (0.0-1.1); MONO % 15 % (0-9); NEUT % 60 % (31-73); PLATELET COUNT 159 x10^3/uL (140-400); RED BLOOD COUNT 4.22 x10^6/uL (3.50-5.40); RED CELL DISTRIBUTION WIDTH 16.4 % (11.5-14.5)
[2020-03-29 05:15] LABS: PROTHROMBIN TIME PATIENT 12.7 SEC (11.7-14.0)
[2020-03-29 05:39] LABS: ALBUMIN 2.9 g/dL (3.4-5.0); ALBUMIN/GLOBULIN RATIO 0.7 (1.0-1.7); CALCIUM 8.7 mg/dL (8.5-10.1); CREATININE 1.1 mg/dL (0.6-1.0); GFR 49.4; POTASSIUM 4.2 mmol/L (3.5-5.1); TOTAL BILIRUBIN 0.8 mg/dL (0.2-1.0); TOTAL PROTEIN 7.2 g/dL (6.4-8.2)
[2020-03-29] MEDS: CEFEPIME HCL IV Push 1 GM VIAL. IVP SCH ×3 (06:05→21:12)
[2020-03-29] MEDS: LEVOTHYROXINE 25 MCG TABLET. PO SCH (06:05)
--- NOTE | 2020-03-29 06:53 | PDOC ---
Infectious Disease Note Subjective Subjective No F/C/S/ and less nausea and loose stools overnight and feels better. no Abd pain. Vital Sign Vital Signs Vital Signs Date Time Temp Pulse Resp B/P (MAP) Pulse Ox O2 Delivery O2 Flow Rate FiO2 03/29/20 03:23 98.1 92 18 123/65 (84) 94 Nasal Cannula 3.0 98.1 Physical Exam PHYSICAL EXAM CONSTITUTIONAL: She is sitting upright in a chair. She is pleasant, cooperative. She is in no acute distress. She is morbidly obese. Looks better HEENT: Pupils are equal and reactive. She has normal conjunctivae. Oral cavity, pharynx is clear. NECK: Supple, no JVD. LUNGS: Clear to auscultation.- on HEART: S1, S2. ABDOMEN: Obese, soft, nontender, nondistended, GENITOURINARY: No Shaw is in place. EXTREMITIES: Without clubbing, cyanosis. She has chronic stasis changes and chronic nonpitting edema. SKIN: Warm to touch without signs of generalized rash. NEUROLOGIC: She is nonfocal, answers questions, moves all extremities. PSYCHIATRIC: Affect is appropriate. Labs Lab Laboratory Tests Test 03/28/20 08:08 03/28/20 10:56 03/28/20 15:31 03/28/20 20:31 Glucose (Fingerstick) 133 mg/dL (70-99) 168 mg/dL (70-99) 151 mg/dL (70-99) 185 mg/dL (70-99) Test 03/29/20 04:00 Prothrombin Time 12.7 SEC (11.7-14.0) Prothromb Time International Ratio 1.0 (0.8-1.1) Sodium Level 139 mmol/L (136-145) Potassium Level 4.2 mmol/L (3.5-5.1) Chloride Level 102 mmol/L (98-107) Carbon Dioxide Level 33 mmol/L (21-32) Anion Gap 4 (6-14) Blood Urea Nitrogen 33 mg/dL (7-20) Creatinine 1.1 mg/dL (0.6-1.0) Estimated GFR (Cockcroft-Gault) 49.4 BUN/Creatinine Ratio 30 (6-20) Glucose Level 148 mg/dL (70-99) Calcium Level 8.7 mg/dL (8.5-10.1) Total Bilirubin 0.8 mg/dL (0.2-1.0) Aspartate Amino Transf (AST/SGOT) 82 U/L (15-37) Alanine Aminotransferase (ALT/SGPT) 93 U/L (14-59) Alkaline Phosphatase 69 U/L (46-116) Total Protein 7.2 g/dL (6.4-8.2) Albumin 2.9 g/dL (3.4-5.0) Albumin/Globulin Ratio 0.7 (1.0-1.7) Micro FINAL ID= [KLEBSIELLA PNEUMONIAE] Testing Performed by: [facility] [address] [place] [address] For Inquires, the Physician may contact the Microbiology department at [phone] KLEBSIELLA PNEUMONIAE ANTIMICROBIAL SUSCEPTIBILITY Final Comment NEG CARLITOS 56 KLEBSIELLA PNEUMONIAE ANTIBIOTIC RESULT INTERPRETATION AMPICILLIN/SULBACTAM <=4/2 S AMIKACIN <=16 S AMPICILLIN <=8 R* AMOXICILLIN/K CLAVULANATE <=8/4 S AZTREONAM <=4 S CEFTRIAXONE <=1 S CEFTAZIDIME <=1 S CEFOTAXIME <=2 S CEFOXITIN <=8 S CIPROFLOXACIN <=0.25 S CEFEPIME <=2 S CEFUROXIME <=4 S CEFTAZIDIME/AVIBACTAM <=4 S ERTAPENEM <=0.5 S NITROFURANTOIN <=32 S GENTAMICIN <=2 S LEVOFLOXACIN <=0.5 S MEROPENEM <=1 S PIPERACILLIN/TAZOBACTAM <=8 S TRIMETHOPRIM/SULFAMETHOXAZOLE >2/38 R TETRACYCLINE >8 R TOBRAMYCIN <=2 S ABD U/S 03/26 IMPRESSION: 1. Cholelithiasis without sonographic evidence of cholecystitis. 2. Diffuse hepatic steatosis and hepatomegaly. Microbiology 03/25/20 Blood Culture - Preliminary, Resulted NO GROWTH AFTER 1 DAY Objective Assessment Kleb Vericola sepsis - 03/25 Leukocytosis - better UTI - POA - Klebsiella pneum Nausea - was better but returned last pm Fever - better Transaminitis - some better CLAUDIA - stable ? CHF Morbid Obesity Plan Plan of Care Cont Cefepime D/c zyvox 03/25 - 03/27 F/u labs and cults -urine D/w OTTONIEL Canseco MD Mar 29, 2020 06:53
[2020-03-29 07:00] VITALS: BP 176/77
--- NOTE | 2020-03-29 08:12 | NUR ---
Pharmacy Warfarin Dosing Note S:Pharmacy consulted to assist with anticoagulation therapy started 03/28/20 with target INR: 2 -3 O:PRATEEK JOYCE is a 69 year old F with Atrial Fibrillation LABS: Last INR: 1 Last HGB: 11.9 Last HCT: 36.2 Last PLT: 159 Last dose of 7.5 mg given on 03/28/20 at 1723 Vitamin K given: N A:INR of 1 is below desired range. Target range for this patient is: 2 -3 P: Warfarin dose: 7.5 mg Today at 1600 Bridge Therapy: None Next INR due 03/30/20 Pharmacy anticoagulation service will continue to follow. MYKE ZELAYA RPH, 03/29/20 0812
[2020-03-29] MEDS: ASPIRIN ENTERIC COATED 81 MG TABLET.DR. PO SCH (08:18)
[2020-03-29] MEDS: LACTOBACILLUS RHAMNOSUS GG 1 CAPSULE. PO SCH ×2 (08:18→21:12)
[2020-03-29] MEDS: UREA 40% TOPICAL CREAM 28.3GM TUBE. TP SCH (08:19)
[2020-03-29] MEDS: amLODIPine BESYLATE 10 MG TABLET PO SCH (08:19)
[2020-03-29] MEDS: AMMONIUM LACTATE 12% TOPICAL LOTION 226GM BOTTLE. TP SCH ×2 (08:19→21:12)
[2020-03-29] MEDS: LINAGLIPTIN 5 MG TABLET PO SCH (08:19)
[2020-03-29] MEDS: METOPROLOL SUCC 24HR ER 100 MG TAB.ER.24H. PO SCH (08:19)
[2020-03-29 10:23] VITALS: BP 162/72
[2020-03-29 11:07] LABS: % EOS 5 % (0-5); % LYMPHS 19 % (24-48); % MONOS 6 % (0-10); % SEGS 70 % (35-66); OVALOCYTES FEW; PLT ESTIMATE ADEQUATE (ADEQUATE)
[2020-03-29 11:08] LABS: POLYCHROMASIA SLIGHT
[2020-03-29 14:29] VITALS: BP 152/70
[2020-03-29] MEDS ORDERED: DEXTROSE 50% 25 GM / 50ML DISP.SYRIN. IV PRN (14:30)
--- NOTE | 2020-03-29 14:33 | PDOC ---
GENERAL General: Patient examined chart reviewed today's hospital day 5 for this patient with severe morbid obesity, obstructive sleep apnea, paroxysmal atrial fibrillation, and acute on chronic diastolic congestive heart failure admitted with weakness and malaise found to have bacteremia with Klebsiella varicola with a likely source being GI and urinary tract infection with Klebsiella pneumoniae. We appreciate cardiology and infectious diseases support. She is slowly clinically improving. She is resting in her recliner chair this afternoon tells me that she spends most of her day in her recliner chair at home. She is ambulatory but conserves her strength due to her large size. Her body mass index is 92. She will need a robust discharge plan to avoid readmission. We will continue to follow closely clinically on the telemetry unit. Total time today is 30 minutes with greater than 50% in counseling and coordination of care most of which in discussion with the patient. Problems: (1) Morbid obesity (2) Acute cystitis with hematuria (3) Type 2 diabetes mellitus (4) Bacteremia VITAL SIGNS Vital Signs/I&O: Vital Signs Date Time Temp Pulse Resp B/P (MAP) Pulse Ox O2 Delivery O2 Flow Rate FiO2 03/29/20 10:23 97.7 76 15 162/72 (102) 96 Nasal Cannula 3.0 97.7 I & O 03/28/20 03/28/20 03/29/20 15:00 23:00 07:00 Intake Total 600 ml 350 ml 400 ml Output Total 600 ml Balance 600 ml 350 ml -200 ml In general the patient is pleasant alert and oriented x3 no acute distress HEENT exam is unremarkable for acute abnormality Chest bilateral equal air entry though diminished throughout no crackles or wheezes are noted Heart S1-S2 normal regular rate and rhythm no murmurs or gallops are noted Abdomen is obese soft nontender nondistended no masses organomegaly noted Extremity exam is notable for bilateral chronic venous stasis dermatitis with significant lymphedema noted ALLERGIES Allergies: Allergies Coded Allergies Type Severity Reaction Last Updated Verified phenobarbital Allergy Intermediate Rash 03/10/17 Yes metformin Adverse Reaction Intermediate Nausea and Vomiting 03/12/17 Yes MEDS Medications: Current Medications Medications (Trade) Dose Ordered Sig/Idania Start Time Stop Time Status Last Admin Dose Admin Acetaminophen (Tylenol) 650 mg PRN Q6HRS PRN 03/25/20 13:15 Amlodipine Besylate (Norvasc) 10 mg DAILY 03/26/20 09:00 03/29/20 08:19 Aspirin (Ecotrin) 81 mg DAILY 03/26/20 09:00 03/29/20 08:18 Atorvastatin Calcium (Lipitor) 20 mg QHS 03/25/20 21:00 03/28/20 21:34 Azithromycin 500 mg/Sodium Chloride 250 ml @ 250 mls/hr 1X ONCE 03/25/20 06:30 03/25/20 07:29 DC 03/25/20 06:19 Cefepime HCl (Maxipime) 1 gm Q8HRS 03/25/20 14:00 03/29/20 14:19 Ceftriaxone Sodium (Rocephin) 1 gm 1X ONCE 03/25/20 06:30 03/25/20 06:31 DC 03/25/20 06:18 Furosemide (Lasix) 40 mg 1X ONCE 03/25/20 13:30 03/25/20 13:31 DC 03/25/20 15:25 Heparin Sodium (Porcine) (Heparin Sodium) 5,000 unit Q8HRS 03/27/20 14:00 03/28/20 12:32 DC 03/28/20 06:10 Heparin Sodium/ Dextrose 250 ml @ 0 mls/hr CONT PRN 03/26/20 12:45 03/27/20 11:56 DC 03/26/20 22:01 Info (Anti-Coagulation Monitoring By Pharmacy) 1 each PRN DAILY PRN 03/26/20 12:45 03/27/20 11:56 DC Ketorolac Tromethamine (Toradol 30mg Vial) 30 mg 1X ONCE 03/25/20 03:00 03/25/20 03:01 DC 03/25/20 04:00 Lactic Acid (Lac-Hydrin) 1 duncan BID 03/26/20 21:00 03/29/20 08:19 Lactobacillus Rhamnosus (Culturelle) 1 cap BID 03/26/20 21:00 03/29/20 08:18 Levothyroxine Sodium (Synthroid) 25 mcg DAILY06 03/28/20 06:00 03/29/20 06:05 Linagliptin (Tradjenta) 5 mg DAILY 03/26/20 09:00 03/29/20 08:19 Linezolid (Zyvox) 600 mg BID 03/25/20 14:00 03/27/20 09:21 DC 03/27/20 09:05 Metoprolol Succinate (Toprol Xl) 100 mg DAILY 03/26/20 09:00 03/29/20 08:19 Multi-Ingredient Ointment (Hydrocerin Cream) 1 duncan PRN Q1HR PRN 03/25/20 13:30 Non-Formulary Medication (Atenolol ) 1 tab DAILY 03/26/20 09:00 03/25/20 13:48 DC Ondansetron HCl (Zofran) 4 mg PRN Q6HRS PRN 03/25/20 13:15 03/26/20 20:32 Perflutren Protein Type A Microsphe (Optison) 0.66 mg STK-MED ONCE 03/28/20 10:06 03/28/20 10:06 DC Potassium Chloride (Klor-Con) 20 meq 1X ONCE 03/25/20 13:30 03/25/20 13:31 DC 03/25/20 15:25 Urea (Gali Lo 40, X-Viate) 1 duncan DAILY 03/28/20 09:00 03/29/20 08:19 Warfarin Sodium (Coumadin Per Pharmacy) 1 each PRN DAILY PRN 03/28/20 12:30 03/29/20 08:11 Warfarin Sodium (Coumadin) 7.5 mg DAILY16 03/28/20 16:00 03/28/20 17:23 Current Medications Medications (Trade) Dose Ordered Sig/Idania Route PRN Reason Start Time Stop Time Status Last Admin Dose Admin Warfarin Sodium (Coumadin) 7.5 mg DAILY16 PO 03/28/20 16:00 03/28/20 17:23 LAB Lab: Laboratory Tests Test 03/28/20 15:31 03/28/20 20:31 03/29/20 04:00 03/29/20 07:32 Glucose (Fingerstick) 151 mg/dL (70-99) H 185 mg/dL (70-99) H 149 mg/dL (70-99) H White Blood Count 10.0 x10^3/uL (4.0-11.0) Red Blood Count 4.22 x10^6/uL (3.50-5.40) Hemoglobin 11.9 g/dL (12.0-15.5) L Hematocrit 36.2 % (36.0-47.0) Mean Corpuscular Volume 86 fL (79-100) Mean Corpuscular Hemoglobin 28 pg (25-35) Mean Corpuscular Hemoglobin Concent 33 g/dL (31-37) Red Cell Distribution Width 16.4 % (11.5-14.5) H Platelet Count 159 x10^3/uL (140-400) Neutrophils (%) (Auto) 60 % (31-73) Lymphocytes (%) (Auto) 16 % (24-48) L Monocytes (%) (Auto) 15 % (0-9) H Eosinophils (%) (Auto) 8 % (0-3) H Basophils (%) (Auto) 1 % (0-3) Neutrophils # (Auto) 6.0 x10^3/uL (1.8-7.7) Lymphocytes # (Auto) 1.6 x10^3/uL (1.0-4.8) Monocytes # (Auto) 1.5 x10^3/uL (0.0-1.1) H Eosinophils # (Auto) 0.8 x10^3/uL (0.0-0.7) H Basophils # (Auto) 0.1 x10^3/uL (0.0-0.2) Segmented Neutrophils % 70 % (35-66) H Lymphocytes % 19 % (24-48) L Monocytes % 6 % (0-10) Eosinophils % 5 % (0-5) Platelet Estimate Adequate (ADEQUATE) Polychromasia Slight Ovalocytes Few Prothrombin Time 12.7 SEC (11.7-14.0) Prothrombin Time INR 1.0 (0.8-1.1) Sodium Level 139 mmol/L (136-145) Potassium Level 4.2 mmol/L (3.5-5.1) Chloride Level 102 mmol/L (98-107) Carbon Dioxide Level 33 mmol/L (21-32) H Anion Gap 4 (6-14) L Blood Urea Nitrogen 33 mg/dL (7-20) H Creatinine 1.1 mg/dL (0.6-1.0) H Estimated GFR (Cockcroft-Gault) 49.4 BUN/Creatinine Ratio 30 (6-20) H Glucose Level 148 mg/dL (70-99) H Calcium Level 8.7 mg/dL (8.5-10.1) Total Bilirubin 0.8 mg/dL (0.2-1.0) Aspartate Amino Transferase (AST) 82 U/L (15-37) H Alanine Aminotransferase (ALT) 93 U/L (14-59) H Alkaline Phosphatase 69 U/L (46-116) Total Protein 7.2 g/dL (6.4-8.2) Albumin 2.9 g/dL (3.4-5.0) L Albumin/Globulin Ratio 0.7 (1.0-1.7) L Test 03/29/20 11:27 Glucose (Fingerstick) 160 mg/dL (70-99) H Laboratory Tests 03/29/20 04:00 Laboratory Tests 03/29/20 04:00 ASSESSMENT & PLAN A&P Plan as noted above This note was created using [employer] and may have omissions and/or errors due to the nature of real-time voice community integration specialist. Justicifation of Admission Dx: Justifications for Admission: Justification of Admission Dx: Yes NAZARIO HARVEY MD Mar 29, 2020 14:33
[2020-03-29] MEDS: WARFARIN 7.5 MG TABLET. PO SCH (16:41)
[2020-03-29] MEDS: INSULIN LISPRO 300 UNITS/3 ML VIAL. SQ SCH (16:43)
[2020-03-29 19:00] VITALS: BP 169/92
[2020-03-29] MEDS: ATORVASTATIN CALCIUM 20 MG TABLET PO SCH (21:12)
[2020-03-29 23:02] VITALS: BP 138/55
[2020-03-30] VITALS (7 sets, daily range): BP systolic 136–186; BP diastolic 61–117
[2020-03-30 05:52] LABS: BASO # 0.1 x10^3/uL (0.0-0.2); BASO % 1 % (0-3); EOS # 0.8 x10^3/uL (0.0-0.7); EOS % 8 % (0-3); HEMATOCRIT 36.7 % (36.0-47.0); LYMPH # 1.9 x10^3/uL (1.0-4.8); LYMPH % 18 % (24-48); MEAN CORPUSCULAR HEMOGLOBIN 28 pg (25-35); MEAN CORPUSCULAR HGB CONC 33 g/dL (31-37); MEAN CORPUSCULAR VOLUME 85 fL (79-100); MONO % 10 % (0-9); NEUT # 6.5 x10^3/uL (1.8-7.7); NEUT % 63 % (31-73); PLATELET COUNT 196 x10^3/uL (140-400); RED BLOOD COUNT 4.31 x10^6/uL (3.50-5.40); RED CELL DISTRIBUTION WIDTH 16.4 % (11.5-14.5); WHITE BLOOD COUNT 10.3 x10^3/uL (4.0-11.0)
[2020-03-30] MEDS: CEFEPIME HCL IV Push 1 GM VIAL. IVP SCH ×3 (05:53→21:42)
[2020-03-30] MEDS: LEVOTHYROXINE 25 MCG TABLET. PO SCH (05:53)
[2020-03-30 06:25] LABS: ALBUMIN 2.9 g/dL (3.4-5.0); ALBUMIN/GLOBULIN RATIO 0.6 (1.0-1.7); CALCIUM 9.1 mg/dL (8.5-10.1); GFR 55.1; POTASSIUM 4.5 mmol/L (3.5-5.1); TOTAL BILIRUBIN 0.8 mg/dL (0.2-1.0); TOTAL PROTEIN 7.5 g/dL (6.4-8.2)
[2020-03-30] MEDS: LACTOBACILLUS RHAMNOSUS GG 1 CAPSULE. PO SCH ×2 (08:01→21:42)
[2020-03-30] MEDS: METOPROLOL SUCC 24HR ER 100 MG TAB.ER.24H. PO SCH (08:01)
[2020-03-30] MEDS: amLODIPine BESYLATE 10 MG TABLET PO SCH (08:01)
[2020-03-30] MEDS: ASPIRIN ENTERIC COATED 81 MG TABLET.DR. PO SCH (08:01)
[2020-03-30] MEDS: LINAGLIPTIN 5 MG TABLET PO SCH (08:01)
[2020-03-30] MEDS: AMMONIUM LACTATE 12% TOPICAL LOTION 226GM BOTTLE. TP SCH ×2 (08:02→21:42)
[2020-03-30] MEDS: UREA 40% TOPICAL CREAM 28.3GM TUBE. TP SCH (08:02)
[2020-03-30] MEDS: INSULIN LISPRO 300 UNITS/3 ML VIAL. SQ SCH ×3 (08:10→17:44)
--- NOTE | 2020-03-30 09:27 | NUR ---
Pharmacy Warfarin Dosing Note S:Pharmacy consulted to assist with anticoagulation therapy started 03/28/20 with target INR: 2 -3 O:PRATEEK JOYCE is a 69 year old F with Atrial Fibrillation LABS: Last INR: 1.3 Last HGB: 12 Last HCT: 36.7 Last PLT: 196 Last dose of 7.5 mg given on 03/29/20 at 1641 Vitamin K given: N A:INR of 1.3 is below desired range. Target range for this patient is: 2 -3 P: Warfarin dose: 7.5 mg Today at 1600 Bridge Therapy: None Next INR due 03/31/20 Pharmacy anticoagulation service will continue to follow. MYKE ZELAYA RPH, 03/30/20 [id number]
--- NOTE | 2020-03-30 14:55 | PDOC ---
GENERAL General: Patient examined chart reviewed sitting in the commode this afternoon allowed me in to examine her anyway. Her blood pressure is up this afternoon she is not sure why, she is actually feeling at baseline. No events overnight she is making slow progress. She is transferring from chair to commode well. Continue current management otherwise Problems: (1) Morbid obesity (2) SAVAGE (obstructive sleep apnea) (3) Bacteremia VITAL SIGNS Vital Signs/I&O: Vital Signs Date Time Temp Pulse Resp B/P (MAP) Pulse Ox O2 Delivery O2 Flow Rate FiO2 03/30/20 14:43 98.2 96 19 186/79 (114) 95 Nasal Cannula 3.0 98.2 I & O 03/29/20 03/29/20 03/30/20 15:00 23:00 07:00 Intake Total 300 ml 800 ml 700 ml Output Total 450 ml 600 ml 800 ml Balance -150 ml 200 ml -100 ml In general the patient is pleasant alert and oriented x3 no acute distress HEENT exam is unremarkable for acute abnormality Chest bilateral equal air entry though diminished throughout no crackles or wheezes are noted Heart S1-S2 normal regular rate and rhythm no murmurs or gallops are noted Extremity exam is unchanged from prior ALLERGIES Allergies: Allergies Coded Allergies Type Severity Reaction Last Updated Verified phenobarbital Allergy Intermediate Rash 03/10/17 Yes metformin Adverse Reaction Intermediate Nausea and Vomiting 03/12/17 Yes MEDS Medications: Current Medications Medications (Trade) Dose Ordered Sig/Idania Start Time Stop Time Status Last Admin Dose Admin Acetaminophen (Tylenol) 650 mg PRN Q6HRS PRN 03/25/20 13:15 Amlodipine Besylate (Norvasc) 10 mg DAILY 03/26/20 09:00 03/30/20 08:01 Aspirin (Ecotrin) 81 mg DAILY 03/26/20 09:00 03/30/20 08:01 Atorvastatin Calcium (Lipitor) 20 mg QHS 03/25/20 21:00 03/29/20 21:12 Azithromycin 500 mg/Sodium Chloride 250 ml @ 250 mls/hr 1X ONCE 03/25/20 06:30 03/25/20 07:29 DC 03/25/20 06:19 Cefepime HCl (Maxipime) 1 gm Q8HRS 03/25/20 14:00 03/30/20 14:15 Ceftriaxone Sodium (Rocephin) 1 gm 1X ONCE 03/25/20 06:30 03/25/20 06:31 DC 03/25/20 06:18 Dextrose (Dextrose 50%-Water Syringe) 12.5 gm PRN Q15MIN PRN 03/29/20 14:30 Furosemide (Lasix) 40 mg 1X ONCE 03/25/20 13:30 03/25/20 13:31 DC 03/25/20 15:25 Heparin Sodium (Porcine) (Heparin Sodium) 5,000 unit Q8HRS 03/27/20 14:00 03/28/20 12:32 DC 03/28/20 06:10 Heparin Sodium/ Dextrose 250 ml @ 0 mls/hr CONT PRN 03/26/20 12:45 03/27/20 11:56 DC 03/26/20 22:01 Info (Anti-Coagulation Monitoring By Pharmacy) 1 each PRN DAILY PRN 03/26/20 12:45 03/27/20 11:56 DC Insulin Human Lispro (HumaLOG) 0-7 UNITS TIDWMEALS 03/29/20 17:00 03/30/20 08:10 Ketorolac Tromethamine (Toradol 30mg Vial) 30 mg 1X ONCE 03/25/20 03:00 03/25/20 03:01 DC 03/25/20 04:00 Lactic Acid (Lac-Hydrin) 1 duncan BID 03/26/20 21:00 03/30/20 08:02 Lactobacillus Rhamnosus (Culturelle) 1 cap BID 03/26/20 21:00 03/30/20 08:01 Levothyroxine Sodium (Synthroid) 25 mcg DAILY06 03/28/20 06:00 03/30/20 05:53 Linagliptin (Tradjenta) 5 mg DAILY 03/26/20 09:00 03/30/20 08:01 Linezolid (Zyvox) 600 mg BID 03/25/20 14:00 03/27/20 09:21 DC 03/27/20 09:05 Metoprolol Succinate (Toprol Xl) 100 mg DAILY 03/26/20 09:00 03/30/20 08:01 Multi-Ingredient Ointment (Hydrocerin Cream) 1 duncan PRN Q1HR PRN 03/25/20 13:30 Non-Formulary Medication (Atenolol ) 1 tab DAILY 03/26/20 09:00 03/25/20 13:48 DC Ondansetron HCl (Zofran) 4 mg PRN Q6HRS PRN 03/25/20 13:15 03/26/20 20:32 Perflutren Protein Type A Microsphe (Optison) 0.66 mg STK-MED ONCE 03/28/20 10:06 03/28/20 10:06 DC Potassium Chloride (Klor-Con) 20 meq 1X ONCE 03/25/20 13:30 03/25/20 13:31 DC 03/25/20 15:25 Urea (Gali Lo 40, X-Viate) 1 duncan DAILY 03/28/20 09:00 03/30/20 08:02 Warfarin Sodium (Coumadin Per Pharmacy) 1 each PRN DAILY PRN 03/28/20 12:30 03/30/20 09:27 Warfarin Sodium (Coumadin) 7.5 mg DAILY16 03/28/20 16:00 03/29/20 16:41 Current Medications Medications (Trade) Dose Ordered Sig/Idania Route PRN Reason Start Time Stop Time Status Last Admin Dose Admin Insulin Human Lispro (HumaLOG) 0-7 UNITS TIDWMEALS SQ 03/29/20 17:00 03/30/20 08:10 LAB Lab: Laboratory Tests Test 03/29/20 16:13 03/29/20 21:11 03/30/20 05:00 03/30/20 06:50 Glucose (Fingerstick) 166 mg/dL (70-99) H 162 mg/dL (70-99) H White Blood Count 10.3 x10^3/uL (4.0-11.0) Red Blood Count 4.31 x10^6/uL (3.50-5.40) Hemoglobin 12.0 g/dL (12.0-15.5) Hematocrit 36.7 % (36.0-47.0) Mean Corpuscular Volume 85 fL (79-100) Mean Corpuscular Hemoglobin 28 pg (25-35) Mean Corpuscular Hemoglobin Concent 33 g/dL (31-37) Red Cell Distribution Width 16.4 % (11.5-14.5) H Platelet Count 196 x10^3/uL (140-400) Neutrophils (%) (Auto) 63 % (31-73) Lymphocytes (%) (Auto) 18 % (24-48) L Monocytes (%) (Auto) 10 % (0-9) H Eosinophils (%) (Auto) 8 % (0-3) H Basophils (%) (Auto) 1 % (0-3) Neutrophils # (Auto) 6.5 x10^3/uL (1.8-7.7) Lymphocytes # (Auto) 1.9 x10^3/uL (1.0-4.8) Monocytes # (Auto) 1.0 x10^3/uL (0.0-1.1) Eosinophils # (Auto) 0.8 x10^3/uL (0.0-0.7) H Basophils # (Auto) 0.1 x10^3/uL (0.0-0.2) Sodium Level 139 mmol/L (136-145) Potassium Level 4.5 mmol/L (3.5-5.1) Chloride Level 101 mmol/L (98-107) Carbon Dioxide Level 32 mmol/L (21-32) Anion Gap 6 (6-14) Blood Urea Nitrogen 26 mg/dL (7-20) H Creatinine 1.0 mg/dL (0.6-1.0) Estimated GFR (Cockcroft-Gault) 55.1 BUN/Creatinine Ratio 26 (6-20) H Glucose Level 155 mg/dL (70-99) H Calcium Level 9.1 mg/dL (8.5-10.1) Total Bilirubin 0.8 mg/dL (0.2-1.0) Aspartate Amino Transferase (AST) 59 U/L (15-37) H Alanine Aminotransferase (ALT) 95 U/L (14-59) H Alkaline Phosphatase 61 U/L (46-116) Total Protein 7.5 g/dL (6.4-8.2) Albumin 2.9 g/dL (3.4-5.0) L Albumin/Globulin Ratio 0.6 (1.0-1.7) L Prothrombin Time 16.0 SEC (11.7-14.0) H Prothrombin Time INR 1.3 (0.8-1.1) H Test 03/30/20 07:14 03/30/20 11:26 Glucose (Fingerstick) 152 mg/dL (70-99) H 145 mg/dL (70-99) H Laboratory Tests 03/30/20 05:00 Laboratory Tests 03/30/20 05:00 ASSESSMENT & PLAN A&P Plan as noted above This note was created using [employer] and may have omissions and/or errors due to the nature of real-time voice case mgr. Justicifation of Admission Dx: Justifications for Admission: Justification of Admission Dx: Yes NAZARIO HARVEY MD Mar 30, 2020 14:55
[2020-03-30] MEDS ORDERED: hydrALAZINE 20 MG/ML VIAL. IVP PRN (15:00)
[2020-03-30] MEDS: WARFARIN 7.5 MG TABLET. PO SCH (15:13)
[2020-03-30] MEDS ORDERED: diphenhydrAMINE HCL 25 MG CAPSULE PO PRN (16:30)
[2020-03-30] MEDS: ATORVASTATIN CALCIUM 20 MG TABLET PO SCH (21:42)
[2020-03-31 03:08] VITALS: BP 147/61
[2020-03-31 05:08] LABS: HEMOGLOBIN A1C 6.8 % (4.8-5.6)
[2020-03-31] MEDS: LEVOTHYROXINE 25 MCG TABLET. PO SCH (06:02)
[2020-03-31] MEDS: CEFEPIME HCL IV Push 1 GM VIAL. IVP SCH (06:03)
[2020-03-31 07:00] VITALS: BP 132/65
[2020-03-31] MEDS: INSULIN LISPRO 300 UNITS/3 ML VIAL. SQ SCH ×3 (07:51→17:37)
[2020-03-31 07:58] LABS: BASO # 0.1 x10^3/uL (0.0-0.2); BASO % 1 % (0-3); EOS # 0.9 x10^3/uL (0.0-0.7); EOS % 9 % (0-3); HEMOGLOBIN 12.2 g/dL (12.0-15.5); LYMPH # 1.4 x10^3/uL (1.0-4.8); LYMPH % 14 % (24-48); MEAN CORPUSCULAR HEMOGLOBIN 28 pg (25-35); MEAN CORPUSCULAR HGB CONC 33 g/dL (31-37); MEAN CORPUSCULAR VOLUME 85 fL (79-100); MONO # 0.7 x10^3/uL (0.0-1.1); MONO % 7 % (0-9); NEUT # 6.8 x10^3/uL (1.8-7.7); NEUT % 69 % (31-73); PLATELET COUNT 223 x10^3/uL (140-400); RED BLOOD COUNT 4.34 x10^6/uL (3.50-5.40); RED CELL DISTRIBUTION WIDTH 16.2 % (11.5-14.5); WHITE BLOOD COUNT 9.9 x10^3/uL (4.0-11.0)
[2020-03-31 08:07] LABS: PROTHROMBIN TIME PATIENT 18.5 SEC (11.7-14.0)
--- NOTE | 2020-03-31 08:13 | PDOC ---
Infectious Disease Note Subjective Subjective Pt is feeling better ROS ROS no n/v/d/sob/fever Vital Sign Vital Signs Vital Signs Date Time Temp Pulse Resp B/P (MAP) Pulse Ox O2 Delivery O2 Flow Rate FiO2 03/31/20 03:08 97.7 94 18 147/61 (89) 97 Nasal Cannula 3.0 97.7 Physical Exam PHYSICAL EXAM CONSTITUTIONAL: She is sitting upright in a chair. She is pleasant, cooperative. She is in no acute distress. She is morbidly obese. Looks better HEENT: Pupils are equal and reactive. She has normal conjunctivae. Oral cavity, pharynx is clear. NECK: Supple, no JVD. LUNGS: Clear to auscultation.- on HEART: S1, S2. ABDOMEN: Obese, soft, nontender, nondistended, GENITOURINARY: No Shaw is in place. EXTREMITIES: Without clubbing, cyanosis. She has chronic stasis changes and chronic nonpitting edema. SKIN: Warm to touch without signs of generalized rash. NEUROLOGIC: She is nonfocal, answers questions, moves all extremities. PSYCHIATRIC: Affect is appropriate. Labs Lab Laboratory Tests Test 03/30/20 11:26 03/30/20 16:36 03/30/20 20:30 03/31/20 06:25 Glucose (Fingerstick) 145 mg/dL (70-99) 168 mg/dL (70-99) 184 mg/dL (70-99) White Blood Count 9.9 x10^3/uL (4.0-11.0) Red Blood Count 4.34 x10^6/uL (3.50-5.40) Hemoglobin 12.2 g/dL (12.0-15.5) Hematocrit 37.0 % (36.0-47.0) Mean Corpuscular Volume 85 fL (79-100) Mean Corpuscular Hemoglobin 28 pg (25-35) Mean Corpuscular Hemoglobin Concent 33 g/dL (31-37) Red Cell Distribution Width 16.2 % (11.5-14.5) Platelet Count 223 x10^3/uL (140-400) Neutrophils (%) (Auto) 69 % (31-73) Lymphocytes (%) (Auto) 14 % (24-48) Monocytes (%) (Auto) 7 % (0-9) Eosinophils (%) (Auto) 9 % (0-3) Basophils (%) (Auto) 1 % (0-3) Neutrophils # (Auto) 6.8 x10^3/uL (1.8-7.7) Lymphocytes # (Auto) 1.4 x10^3/uL (1.0-4.8) Monocytes # (Auto) 0.7 x10^3/uL (0.0-1.1) Eosinophils # (Auto) 0.9 x10^3/uL (0.0-0.7) Basophils # (Auto) 0.1 x10^3/uL (0.0-0.2) Test 03/31/20 07:55 Glucose (Fingerstick) 164 mg/dL (70-99) Micro Objective Assessment Kleb Vericola sepsis - 03/25 Leukocytosis - better UTI - POA - Klebsiella pneum Nausea - was better but returned last pm Fever - better Transaminitis - some better CLAUDIA - stable ? CHF Morbid Obesity Plan Plan of Care d/c Cefepime F/u labs and cults -urine cefdinir po 300 bid for 10 more days LAXMI FLORES MD Mar 31, 2020 08:13
[2020-03-31] MEDS: ASPIRIN ENTERIC COATED 81 MG TABLET.DR. PO SCH (08:39)
[2020-03-31] MEDS: LACTOBACILLUS RHAMNOSUS GG 1 CAPSULE. PO SCH ×2 (08:39→20:50)
[2020-03-31] MEDS: amLODIPine BESYLATE 10 MG TABLET PO SCH (08:40)
[2020-03-31] MEDS: METOPROLOL SUCC 24HR ER 100 MG TAB.ER.24H. PO SCH (08:40)
[2020-03-31] MEDS: LINAGLIPTIN 5 MG TABLET PO SCH (08:40)
[2020-03-31] MEDS: AMMONIUM LACTATE 12% TOPICAL LOTION 226GM BOTTLE. TP SCH ×2 (08:44→20:50)
[2020-03-31] MEDS: CEFDINIR 300 MG CAPSULE PO SCH ×2 (08:44→20:50)
[2020-03-31] MEDS: UREA 40% TOPICAL CREAM 28.3GM TUBE. TP SCH (08:44)
[2020-03-31 08:56] LABS: ALBUMIN/GLOBULIN RATIO 0.7 (1.0-1.7); CALCIUM 8.5 mg/dL (8.5-10.1); GFR 55.1; POTASSIUM 4.5 mmol/L (3.5-5.1); TOTAL BILIRUBIN 0.7 mg/dL (0.2-1.0); TOTAL PROTEIN 7.2 g/dL (6.4-8.2)
[2020-03-31 10:54] VITALS: BP 136/66
--- NOTE | 2020-03-31 11:52 | PDOC ---
[employer] PROGRESS NOTE Date of Service DOS: DATE: 03/31/20 TIME: 11:40 Chief Complaint Chief Complaint A/P: Gram negative bacteremia - Klebsiella variicola in blood. ID consulted Falls and weakness - likely related to acute UTI. Will treat. PT to assess Gait, OT to assess ADLs Dysuria - empiric rocephin given in ED. D/w ID to change to cefepime given history of UTIs Sepsis - 2/2 likely UTI, will f/u blood cultures and COVID 19 testing as well Acute hypoxia - will given IV lasix x1 and wean O2 as tolerated. No cough. Will f/u COVID 19 test results CLAUDIA - likely vasomotor nephropathy from poor self care recently Arthritis - bilateral shoulders. Voltaren topically prn diastolic CHF - seems to have mild acute CHF, will diurese, monitor I/O Diabetes-Type II - hold metformin for CLAUDIA, sliding scale insulin Hypertension - cont home meds, hold CHRISSY for CLAUDIA Hypothyroid - cont levothyroxine Thrombocytopenia - uncertain etiology, will monitor Obstructive sleep apnea - advised to use BIPAP, she will wear nocturnal O2. Transaminitis - likely congestive hepatopathy, however INR and bilirubin as well as albumin are abnormal, possibly NAFLD. Monitor FEN - ADA diet PPX - heparin. monitor platelets FULL CODE Dispo - awaiting cardiology consult History of Present Illness History of Present Illness 03/31/2020 Patient seen and examined Patient was alert and pleasant sitting in chair Awaiting Cardiology consult for possible Afib Continue cefdinir Discussed with RN Chart reviewed DC pending cardiology Ms Reyes is a 69 yo F w/ PMHx Arthritis, CHF, Diabetes-Type II, Hypertension, Hypothyroid, chronic back pain, obstructive sleep apnea who presents with complaints of generalized weakness and myalgias. She has been more fatigued over the past 3 days leading up to presentation to the ED. She also notes pain and difficulty with urination which is been progressive as well. She notes chronic pain in her coccyx and sacrum and does note she fell prior to coming to ED and her inability to get up is why she contacted EMS. She fell onto her left side and did not strike her head or arm. She does complain of bilateral shoulder pain that is chronic as well. She does note some shortness of breath worse at night, does not wear her home BIPAP, prefers to wear O2. She denied any cough, fever, chest pain, nausea or vomiting. She denies any exposure to COVID, change in smell or taste. Labs significant for WBC 17.3, Hb 12.7, platelets 122, lactic acid 3.1, BNP 1836, bilirubin 1.7, AST 177, albumin 2.8, NA 137, K3.7, BUN 3 9, CR 1.7, glucose 135. CXR shows interstitial opacities bilaterally. She was febrile to 101.1 F, also hypoxic to 84% on room air, placed on 2L NCO2 with improvement. A COVID 19 test was performed in ED. Admitted for further care. 03/26: Pain is not improved. Troponin mildly elevated EKG no signs of STEMI. Upper quadrant with gallstones no acute cholecystitis. 03/27: Afebrile overnight. She still feels badly has some abdominal pain and nausea. LFTs have increased slightly. CR improved slightly. COVID-19 test returned negative. Urine with Klebsiella pneumonia Afebrile. In continued a flutter. Plans for echo and starting Coumadin today she could not take NOAC due to weight. She feels a little better but is having loose bowels. Blood cultures returned positive for Klebsiella. Plan: Trend LFTs, nausea control continue inpatient C. diff if diarrhea continues Okay to transfer to [facility] on telemetry monitoring Vitals/I&O Vitals/I&O: Vital Signs Date Time Temp Pulse Resp B/P (MAP) Pulse Ox O2 Delivery O2 Flow Rate FiO2 03/31/20 10:54 98.0 74 20 136/66 (89) 95 Nasal Cannula 3.0 98.0 I & O 03/30/20 03/30/20 03/31/20 14:59 22:59 06:59 Intake Total 250 ml 600 ml Output Total 750 ml 1100 ml 800 ml Balance -750 ml -850 ml -200 ml Physical Exam Physical Exam: CONSTITUTIONAL: She is sitting upright in a chair. She is pleasant, cooperative. She is in no acute distress. She is morbidly obese. Looks better HEENT: Pupils are equal and reactive. She has normal conjunctivae. Oral cavity, pharynx is clear. NECK: Supple, no JVD. LUNGS: Clear to auscultation.- on HEART: S1, S2. ABDOMEN: Obese, soft, nontender, nondistended, GENITOURINARY: No Shaw is in place. EXTREMITIES: Without clubbing, cyanosis. She has chronic stasis changes and chronic nonpitting edema. SKIN: Warm to touch without signs of generalized rash. NEUROLOGIC: She is nonfocal, answers questions, moves all extremities. PSYCHIATRIC: Affect is appropriate. General: Alert, Oriented X3, Cooperative, No acute distress Heart: Other (IRR- AFIB, rate controlled) Lungs: Clear Abdomen: Soft, No tenderness, Other (obese) Extremities: No cyanosis, Other (1-2+ bilateral LE edema) Skin: No significant lesion Labs Labs: Laboratory Tests Test 03/30/20 16:36 03/30/20 20:30 03/31/20 06:25 03/31/20 07:55 Glucose (Fingerstick) 168 mg/dL (70-99) 184 mg/dL (70-99) 164 mg/dL (70-99) White Blood Count 9.9 x10^3/uL (4.0-11.0) Red Blood Count 4.34 x10^6/uL (3.50-5.40) Hemoglobin 12.2 g/dL (12.0-15.5) Hematocrit 37.0 % (36.0-47.0) Mean Corpuscular Volume 85 fL (79-100) Mean Corpuscular Hemoglobin 28 pg (25-35) Mean Corpuscular Hemoglobin Concent 33 g/dL (31-37) Red Cell Distribution Width 16.2 % (11.5-14.5) Platelet Count 223 x10^3/uL (140-400) Neutrophils (%) (Auto) 69 % (31-73) Lymphocytes (%) (Auto) 14 % (24-48) Monocytes (%) (Auto) 7 % (0-9) Eosinophils (%) (Auto) 9 % (0-3) Basophils (%) (Auto) 1 % (0-3) Neutrophils # (Auto) 6.8 x10^3/uL (1.8-7.7) Lymphocytes # (Auto) 1.4 x10^3/uL (1.0-4.8) Monocytes # (Auto) 0.7 x10^3/uL (0.0-1.1) Eosinophils # (Auto) 0.9 x10^3/uL (0.0-0.7) Basophils # (Auto) 0.1 x10^3/uL (0.0-0.2) Prothrombin Time 18.5 SEC (11.7-14.0) Prothromb Time International Ratio 1.6 (0.8-1.1) Sodium Level 140 mmol/L (136-145) Potassium Level 4.5 mmol/L (3.5-5.1) Chloride Level 101 mmol/L (98-107) Carbon Dioxide Level 32 mmol/L (21-32) Anion Gap 7 (6-14) Blood Urea Nitrogen 19 mg/dL (7-20) Creatinine 1.0 mg/dL (0.6-1.0) Estimated GFR (Cockcroft-Gault) 55.1 BUN/Creatinine Ratio 19 (6-20) Glucose Level 159 mg/dL (70-99) Calcium Level 8.5 mg/dL (8.5-10.1) Total Bilirubin 0.7 mg/dL (0.2-1.0) Aspartate Amino Transf (AST/SGOT) 48 U/L (15-37) Alanine Aminotransferase (ALT/SGPT) 82 U/L (14-59) Alkaline Phosphatase 62 U/L (46-116) Total Protein 7.2 g/dL (6.4-8.2) Albumin 3.0 g/dL (3.4-5.0) Albumin/Globulin Ratio 0.7 (1.0-1.7) Review of Systems Review of Systems: Denies pain Denies weakness Assessment and Plan Assessmemt and Plan Problems Medical Problems: (1) Acute cystitis with hematuria Status: Acute (2) Community acquired pneumonia Status: Acute (3) Morbid obesity Status: Acute (4) Person under investigation for COVID-19 Status: Acute A/P: Gram negative bacteremia - Klebsiella variicola in blood. ID consulted. Continue Cefdinir. Falls and weakness - likely related to acute UTI. Will treat. PT to assess Gait, OT to assess ADLs Dysuria - empiric rocephin given in ED. D/w ID to change to cefepime given history of UTIs. Switched to Cefdinir. Sepsis - 2/2 likely UTI, will f/u blood cultures and COVID 19 testing as well Acute hypoxia - will given IV lasix x1 and wean O2 as tolerated. No cough. Covid negative 03/25/2020 CLAUDIA - likely vasomotor nephropathy from poor self care recently Arthritis - bilateral shoulders. Voltaren topically prn diastolic CHF - seems to have mild acute CHF, will diurese, monitor I/O Diabetes-Type II - hold metformin for CLAUDIA, sliding scale insulin Hypertension - cont home meds, hold CHRISSY for CLAUDIA Hypothyroid - cont levothyroxine Thrombocytopenia - uncertain etiology, will monitor Obstructive sleep apnea - advised to use BIPAP, she will wear nocturnal O2. Transaminitis - likely congestive hepatopathy, however INR and bilirubin as well as albumin are abnormal, possibly NAFLD. Monitor FEN - ADA diet PPX - heparin. monitor platelets FULL CODE Discharge pending cardiology Comment Review of Relevant I have reviewed the following items lexus (where applicable) has been applied. Medications: Current Medications Medications (Trade) Dose Ordered Sig/Idania Route PRN Reason Start Time Stop Time Status Last Admin Dose Admin Hydralazine HCl (Apresoline Inj) 10 mg PRN Q4HRS PRN IVP ELEVATED BP, SEE COMMENTS 03/30/20 15:00 03/30/20 15:13 Diphenhydramine HCl (Benadryl) 25 mg PRN Q6HRS PRN PO ITCHING 03/30/20 16:30 03/30/20 16:25 Cefdinir (Omnicef) 300 mg BID PO 03/31/20 09:00 03/31/20 08:44 PERRI DIEHL III DO Mar 31, 2020 11:52
--- NOTE | 2020-03-31 13:00 | NUR ---
Pharmacy Warfarin Dosing Note S:Pharmacy consulted to assist with anticoagulation therapy started 03/28/20 with target INR: 2 -3 O:PRATEEK JOYCE is a 69 year old F with Atrial Fibrillation LABS: Last INR: 1.6 Last HGB: 12 Last HCT: 36.7 Last PLT: 196 Last dose of 7.5 mg given on 03/30/20 at 1641 Previous Regimen: Vitamin K given: N Drug Interaction Changes: Ongoing Drug Interactions: A:INR of 1.6 is below desired range. Target range for this patient is: 2 -3 P: Warfarin dose: 7.5 mg Today at 1600 Bridge Therapy: None Next INR due in am Pharmacy anticoagulation service will continue to follow. BROOKE SIERRA RPH, 03/31/20 1300
--- NOTE | 2020-03-31 13:50 | NUR ---
SS following up with discharge planning. Pt transferred from med surg. SS reviewed pt chart and discussed with pt RN. Pt is from home with spouse and is currently on room air. COVID19 negative. PT/OT recommended half-way unit. SS met with pt and discussed discharge planning and half-way unit. Pt reported that she discussed with her spouse over the weekend and they are requesting to go to [facility]. SS phoned and faxed referral to [facility], ; fax [phone]. SS will await acceptance decision and will proceed accordingly. Pt's RN notified.
--- NOTE | 2020-03-31 14:47 | NUR ---
SS following up with discharge planning. [facility] unable to accept pt due to her weight. SS received notification from [facility], ; fax [phone], stating that referral was sent to them Tuesday. [facility] requested updates. SS phoned and faxed updates to [facility]. SS met with pt and discussed. Pt agreeable to [facility] if accepted. SS currently awaiting on accepting decision. SS will continue to follow for discharge planning.
[2020-03-31 15:00] VITALS: BP 145/67
--- NOTE | 2020-03-31 16:15 | NUR ---
SS following up with discharge planning. Pt accepted at [facility]. Bed available tomorrow morning. Physician, pt's RN, and pt notified.
[2020-03-31] MEDS: WARFARIN 7.5 MG TABLET. PO SCH (16:27)
[2020-03-31 19:25] VITALS: BP 137/71
[2020-03-31] MEDS: ATORVASTATIN CALCIUM 20 MG TABLET PO SCH (20:50)
[2020-03-31 22:45] VITALS: BP 129/61
[2020-04-01 03:35] VITALS: BP 139/66
[2020-04-01] MEDS: LEVOTHYROXINE 25 MCG TABLET. PO SCH (06:33)
[2020-04-01 07:00] VITALS: BP 130/63
[2020-04-01 07:55] LABS: PROTHROMBIN TIME PATIENT 20.8 SEC (11.7-14.0)
[2020-04-01] MEDS: INSULIN LISPRO 300 UNITS/3 ML VIAL. SQ SCH ×2 (08:00→12:00)
[2020-04-01] MEDS: ASPIRIN ENTERIC COATED 81 MG TABLET.DR. PO SCH (08:46)
[2020-04-01] MEDS: LINAGLIPTIN 5 MG TABLET PO SCH (08:46)
[2020-04-01] MEDS: LACTOBACILLUS RHAMNOSUS GG 1 CAPSULE. PO SCH (08:46)
[2020-04-01] MEDS: CEFDINIR 300 MG CAPSULE PO SCH (08:46)
[2020-04-01] MEDS: amLODIPine BESYLATE 10 MG TABLET PO SCH (08:47)
[2020-04-01] MEDS: METOPROLOL SUCC 24HR ER 100 MG TAB.ER.24H. PO SCH (08:47)
[2020-04-01] MEDS: AMMONIUM LACTATE 12% TOPICAL LOTION 226GM BOTTLE. TP SCH (08:48)
[2020-04-01] MEDS: UREA 40% TOPICAL CREAM 28.3GM TUBE. TP SCH (08:48)
--- NOTE | 2020-04-01 08:53 | PDOC ---
Infectious Disease Note Subjective Subjective Pt is feeling better ROS ROS no n/v/d/ Vital Sign Vital Signs Vital Signs Date Time Temp Pulse Resp B/P (MAP) Pulse Ox O2 Delivery O2 Flow Rate FiO2 04/01/20 08:47 91 130/63 04/01/20 07:00 98.1 22 95 Nasal Cannula 2.0 98.1 Physical Exam PHYSICAL EXAM CONSTITUTIONAL: She is sitting upright in a chair. She is pleasant, cooperative. She is in no acute distress. She is morbidly obese. Looks better HEENT: Pupils are equal and reactive. She has normal conjunctivae. Oral cavity, pharynx is clear. NECK: Supple, no JVD. LUNGS: Clear to auscultation.- on HEART: S1, S2. ABDOMEN: Obese, soft, nontender, nondistended, GENITOURINARY: No Shaw is in place. EXTREMITIES: Without clubbing, cyanosis. She has chronic stasis changes and chronic nonpitting edema. SKIN: Warm to touch without signs of generalized rash. NEUROLOGIC: She is nonfocal, answers questions, moves all extremities. PSYCHIATRIC: Affect is appropriate. Labs Lab Laboratory Tests Test 03/31/20 11:55 03/31/20 16:53 03/31/20 21:00 04/01/20 07:03 Glucose (Fingerstick) 143 mg/dL (70-99) 167 mg/dL (70-99) 159 mg/dL (70-99) Prothrombin Time 20.8 SEC (11.7-14.0) Prothromb Time International Ratio 1.8 (0.8-1.1) Test 04/01/20 07:52 Glucose (Fingerstick) 151 mg/dL (70-99) Micro Objective Assessment Kleb Vericola sepsis - 03/25 Leukocytosis - better UTI - POA - Klebsiella pneum Nausea - was better but returned last pm Fever - better Transaminitis - some better CLAUDIA - stable ? CHF Morbid Obesity Plan Plan of Care d/c Cefepime F/u labs and cults -urine cefdinir po 300 bid for 10 more days LAXMI FLORES MD Apr 01, 2020 08:53
[2020-04-01 11:00] VITALS: BP 141/67
--- NOTE | 2020-04-01 11:32 | PDOC ---
[employer] PROGRESS NOTE Date of Service DOS: DATE: 04/01/20 TIME: 11:13 Chief Complaint Chief Complaint A/P: Gram negative bacteremia - Klebsiella variicola in blood. ID consulted Falls and weakness - likely related to acute UTI. Will treat. PT to assess Gait, OT to assess ADLs Dysuria - empiric rocephin given in ED. D/w ID to change to cefepime given history of UTIs Sepsis - 2/2 likely UTI, will f/u blood cultures and COVID 19 testing as well Acute hypoxia - will given IV lasix x1 and wean O2 as tolerated. No cough. Will f/u COVID 19 test results CLAUDIA - likely vasomotor nephropathy from poor self care recently Arthritis - bilateral shoulders. Voltaren topically prn diastolic CHF - seems to have mild acute CHF, will diurese, monitor I/O Diabetes-Type II - hold metformin for CLAUDIA, sliding scale insulin Hypertension - cont home meds, hold CHRISSY for CLAUDIA Hypothyroid - cont levothyroxine Thrombocytopenia - uncertain etiology, will monitor Obstructive sleep apnea - advised to use BIPAP, she will wear nocturnal O2. Transaminitis - likely congestive hepatopathy, however INR and bilirubin as well as albumin are abnormal, possibly NAFLD. Monitor FEN - ADA diet PPX - heparin. monitor platelets FULL CODE Dispo - awaiting cardiology consult History of Present Illness History of Present Illness 04/01/20 Pt seen and examined, sitting up in chair, NAD. Reviewed chart, discussed with structural shop helper disposition pending 03/31/2020 Patient seen and examined Patient was alert and pleasant sitting in chair Awaiting Cardiology consult for possible Afib Continue cefdinir Discussed with RN Chart reviewed DC pending cardiology Ms Reyes is a 69 yo F w/ PMHx Arthritis, CHF, Diabetes-Type II, Hypertension, Hypothyroid, chronic back pain, obstructive sleep apnea who presents with compl aints of generalized weakness and myalgias. She has been more fatigued over the past 3 days leading up to presentation to the ED. She also notes pain and difficulty with urination which is been progressive as well. She notes chronic pain in her coccyx and sacrum and does note she fell prior to coming to ED and her inability to get up is why she contacted EMS. She fell onto her left side and did not strike her head or arm. She does complain of bilateral shoulder pain that is chronic as well. She does note some shortness of breath worse at night, does not wear her home BIPAP, prefers to wear O2. She denied any cough, fever, chest pain, nausea or vomiting. She denies any exposure to COVID, change in smell or taste. Labs significant for WBC 17.3, Hb 12.7, platelets 122, lactic acid 3.1, BNP 1836, bilirubin 1.7, AST 177, albumin 2.8, NA 137, K3.7, BUN 3 9, CR 1.7, glucose 135. CXR shows interstitial opacities bilaterally. She was febrile to 101.1 F, also hypoxic to 84% on room air, placed on 2L NCO2 with improvement. A COVID 19 test was performed in ED. Admitted for further care. 03/26: Pain is not improved. Troponin mildly elevated EKG no signs of STEMI. Upper quadrant with gallstones no acute cholecystitis. 03/27: Afebrile overnight. She still feels badly has some abdominal pain and nausea. LFTs have increased slightly. CR improved slightly. COVID-19 test returned negative. Urine with Klebsiella pneumonia Afebrile. In continued a flutter. Plans for echo and starting Coumadin today she could not take NOAC due to weight. She feels a little better but is having loose bowels. Blood cultures returned positive for Klebsiella. Plan: Trend LFTs, nausea control continue inpatient C. diff if diarrhea continues Okay to transfer to [facility] on telemetry monitoring Vitals/I&O Vitals/I&O: Vital Signs Date Time Temp Pulse Resp B/P (MAP) Pulse Ox O2 Delivery O2 Flow Rate FiO2 04/01/20 08:47 91 130/63 04/01/20 07:00 98.1 22 95 Nasal Cannula 2.0 98.1 I & O 03/31/20 03/31/20 04/01/20 15:00 23:00 07:00 Intake Total 500 ml 300 ml 400 ml Output Total 50 ml 500 ml 400 ml Balance 450 ml -200 ml 0 ml Physical Exam Physical Exam: CONSTITUTIONAL: She is sitting upright in a chair. She is pleasant, cooperative. She is in no acute distress. She is morbidly obese. Looks better HEENT: Pupils are equal and reactive. She has normal conjunctivae. Oral cavity, pharynx is clear. NECK: Supple, no JVD. LUNGS: Clear to auscultation.- on HEART: S1, S2. ABDOMEN: Obese, soft, nontender, nondistended, GENITOURINARY: No Shaw is in place. EXTREMITIES: Without clubbing, cyanosis. She has chronic stasis changes and chronic nonpitting edema. SKIN: Warm to touch without signs of generalized rash. NEUROLOGIC: She is nonfocal, answers questions, moves all extremities. PSYCHIATRIC: Affect is appropriate. General: Alert, Oriented X3, Cooperative, No acute distress Heart: Other (IRR- AFIB, rate controlled) Lungs: Clear Abdomen: Soft, No tenderness, Other (obese) Extremities: No cyanosis, Other (1-2+ bilateral LE edema) Skin: No rashes, No significant lesion Labs Labs: Laboratory Tests Test 03/31/20 11:55 03/31/20 16:53 03/31/20 21:00 04/01/20 07:03 Glucose (Fingerstick) 143 mg/dL (70-99) 167 mg/dL (70-99) 159 mg/dL (70-99) Prothrombin Time 20.8 SEC (11.7-14.0) Prothromb Time International Ratio 1.8 (0.8-1.1) Test 04/01/20 07:52 Glucose (Fingerstick) 151 mg/dL (70-99) Review of Systems Review of Systems: Pt denies pain, pt denies weakness Assessment and Plan Assessmemt and Plan Assessment: Community acquired pneumonia Acute cystitis with hematuria Plan: Home meds Continue abx DVT prophylaxis Full code [facility] Problems Medical Problems: (1) Acute cystitis with hematuria Status: Acute (2) Community acquired pneumonia Status: Acute (3) Morbid obesity Status: Acute (4) Person under investigation for COVID-19 Status: Acute Comment Review of Relevant I have reviewed the following items lexus (where applicable) has been applied. PERRI DIEHL III DO Apr 01, 2020 11:32
--- NOTE | 2020-04-01 11:48 | SNU/HH DC ---
DISCHARGE ORDERS DISCHARGE INFORMATION: FINAL DIAGNOSIS Problems Medical Problems: (1) Acute cystitis with hematuria Status: Acute (2) Community acquired pneumonia Status: Acute (3) Morbid obesity Status: Acute (4) Person under investigation for COVID-19 Status: Acute CONDITION ON DISCHARGE: Stable CODE STATUS: Code Status: Full SENIOR LIVING: SNF STAY <30 DAYS: Yes HOSPICE: HOSPICE: No HOSPICE EVAL & TREAT: No LTAC: ADMIT TO LTAC: No POST DISCHARGE ORDERS: ACTIVITY ORDERS: Bedrest today DIET AFTER DISCHARGE: Cardiac TREATMENT/EQUIPMENT ORDERS: Physical Therapy For: Evalulation/Treatment Occupational Therapy For: Evaluation/Treatment DISCHARGE MEDICATIONS: Home Meds Reported Medications Aspirin (ASPIRIN EC) 81 Mg Tablet.dr, 1 TAB PO DAILY for unknown, #30 TAB 3 Refills 03/25/20 Rosuvastatin Calcium (Rosuvastatin Calcium) 5 Mg Tablet, 5 MG PO QHS for unknown 03/25/20 Levothyroxine Sodium (Euthyrox) 50 Mcg Tablet, 50 MCG PO DAILY for hypothyroid 03/25/20 Meloxicam (MELOXICAM) 15 Mg Tablet, 15 MG PO DAILY for arthritis 03/25/20 Metoprolol Succinate (METOPROLOL SUCCINATE ( XL )) 100 Mg Tab.er.24h, 100 MG PO DAILY for HTN 03/25/20 Amlodipine Besylate/Benazepril (LOTREL 10-20 MG CAPSULE) 1 Each Capsule, 1 CAP PO DAILY, #30 CAP 5 Refills 03/11/17 Sitagliptin Phosphate (JANUVIA) 100 Mg Tablet, 1 TAB PO DAILY, #30 TAB 5 Refills 03/11/17 Triamterene/Hydrochlorothiazid (TRIAMTERENE-HCTZ 37.5-25 MG TB) 1 Each Tablet, 1 TAB PO BID, #30 TAB 5 Refills 03/11/17 Glipizide (GLIPIZIDE ER) 10 Mg Tab.er.24, 1 TAB PO BID, #90 TAB 1 Refill 03/11/17 Levothyroxine Sodium (LEVOTHYROXINE SODIUM) 50 Mcg Tablet, 1 TAB PO DAILY, #30 TAB 5 Refills 03/11/17 Discontinued Reported Medications Atenolol (ATENOLOL) 100 Mg Tablet, 1 TAB PO DAILY, #30 TAB 5 Refills 03/11/17 PERRI DIEHL III DO Apr 01, 2020 11:48
--- NOTE | 2020-04-01 11:55 | NUR ---
Pharmacy Warfarin Dosing Note S:Pharmacy consulted to assist with anticoagulation therapy started 03/28/20 with target INR: 2 -3 O:PRATEEK JOYCE is a 69 year old F with Atrial Fibrillation LABS: Last INR: 1.8 Last HGB: 12.2 Last HCT: 37 Last PLT: 223 Last dose of 7.5 mg given on 03/31/20 at 1627 Previous Regimen: Vitamin K given: N Drug Interaction Changes: Ongoing Drug Interactions: A:INR of 1.8 is below desired range. Target range for this patient is: 2 -3 P: Warfarin dose: 7.5 mg Now Bridge Therapy: None Next INR due IN AM Pharmacy anticoagulation service will continue to follow. FAITH COLEMAN, [facility], 04/01/20 1719
[2020-04-01] MEDS ORDERED: WARF7.5T45 PO (12:11)
[2020-04-01] MEDS ORDERED: LISI10TA2 PO (12:12)
[2020-04-01] MEDS ORDERED: AMLO10TA8 PO (12:12)
[2020-04-01] MEDS ORDERED: CEFD300C PO ×2 (12:12→12:33)
[2020-04-01] MEDS ORDERED: FURO-68 PO (12:13)
--- NOTE | 2020-04-01 12:24 | DS ---
DATE OF DISCHARGE: 04/01/2020 ADMISSION DIAGNOSIS: Community-acquired pneumonia. DISCHARGE DIAGNOSES: Resolving community-acquired pneumonia, history of hypertension, diabetes, overweight, total knee replacement, congestive heart failure, hyperlipidemia, obstructive sleep apnea, osteoarthritis, hypothyroidism. CONSULTS: Cardiology and Infectious Disease. PROCEDURES: None. HOSPITAL COURSE: The patient is a pleasant middle-aged female who presented with respiratory failure with pneumonia. She also had an element of heart failure. She was admitted. We gave her IV antibiotics, breathing treatments, oxygen. We did cardiac monitoring and Lasix and home meds, DVT prophylaxis. We consulted Cardiology and Infectious Disease. Over the past few days, she has returned to baseline. Today, I saw and examined her, she is doing well. She was up in the chair. We plan to discharge to longterm. DISPOSITION: [facility]. ACTIVITY: As tolerated. DIET: Low sodium. MEDICATIONS: Please see the MRAD. TOTAL TIME: 34 minutes. PERRI DIEHL DO DR: VENUS/fallon JOB#: [id number] / [id number]
[2020-04-01] MEDS ORDERED: MINE454C9 TP (12:33)
[2020-04-01] MEDS ORDERED: UREA198C TP (12:33)
[2020-04-01] MEDS ORDERED: WARF7.5T7 PO (12:33)
[2020-04-01] MEDS ORDERED: AMMO225L5 TP (12:33)
--- NOTE | 2020-04-01 12:38 | SNU/HH DC ---
DISCHARGE ORDERS DISCHARGE INFORMATION: DISCHARGE DATE: Apr 01, 2020 FINAL DIAGNOSIS Problems Medical Problems: (1) Acute cystitis with hematuria Status: Acute (2) Community acquired pneumonia Status: Acute (3) Morbid obesity Status: Acute (4) Person under investigation for COVID-19 Status: Acute CONDITION ON DISCHARGE: Stable CODE STATUS: Code Status: Full POST DISCHARGE ORDERS: ACTIVITY ORDERS: Activity as tolerated WEIGHT BEARING STATUS: As tolerated DIET AFTER DISCHARGE: Cardiac OTHER ORDERS: INR needs checked every other day, needs to be 2.0 FOLLOW-UP: ADDITIONAL FOLLOW-UP: DR. BOJORQUEZ ON MAY 22, 2020 @ 10:00AM TREATMENT/EQUIPMENT ORDERS: ADAPTIVE EQUIPMENT NEEDED: None Physical Therapy For: Evalulation/Treatment Occupational Therapy For: Evaluation/Treatment DISCHARGE MEDICATIONS: Home Meds Active Scripts Urea (Urea) 198 Gm Cream..g., 1 CARLOS EDUARDO TP DAILY for dry skin for 30 Days, #30 EACH apply to legs and feet Prov:EMMA DIEHLL K III DO 04/01/20 Ammonium Lactate (Ammonium Lactate) 226 Gm Lotion, 1 CARLOS EDUARDO TP BID for dry skin for 30 Days, #1 MISC Prov:SHANITANIAL K III DO 04/01/20 Lanolin Alcohol/Mo/W.pet/[place] (Hydrocerin Cream) 454 Gm Cream..g., 1 CARLOS EDUARDO TP DAILY PRN for DRY SKIN / SCALING for 30 Days, #30 EACH Prov:ROXANELENIAL K III DO 04/01/20 Warfarin Sodium (JANTOVEN) 7.5 Mg Tablet, 7.5 MG PO DAILY16 for prevent clots for 30 Days, #30 TAB INR needs checked every other day and needs to be at least 2.0 Prov:EMMA DIEHLL K III DO 04/01/20 Cefdinir (CEFDINIR) 300 Mg Capsule, 300 MG PO BID for treat urine problems for 10 Days, #20 CAP Prov:CASTLENIAL K III DO 04/01/20 Reported Medications Furosemide (LASIX) 40 Mg Tablet, 40 MG PO PRN DAILY PRN for SEE COMMENTS, TAB TAKE NEEDED (DAILY) FOR LEG SWELLING AND CHF 04/01/20 Lisinopril (LISINOPRIL) 10 Mg Tablet, 10 MG PO DAILY for FOR HYPERTENSION, #30 TAB 0 Refills 04/01/20 Amlodipine Besylate (AMLODIPINE BESYLATE) 10 Mg Tablet, 10 MG PO DAILY for HYPERTENSION, TAB 8/25/20 Cefdinir (CEFDINIR) 300 Mg Capsule, 300 MG PO BID for for 10 Days, #20 CAP 0 Refills 04/01/20 Warfarin Sodium (WARFARIN SODIUM) 7.5 Mg Tablet, 7.5 MG PO DAILY for , TAB INR MUST BE 2.0 04/01/20 Aspirin (ASPIRIN EC) 81 Mg Tablet.dr, 1 TAB PO DAILY for unknown, #30 TAB 3 Refills 03/25/20 Rosuvastatin Calcium (Rosuvastatin Calcium) 5 Mg Tablet, 5 MG PO QHS for unknown 03/25/20 Meloxicam (MELOXICAM) 15 Mg Tablet, 15 MG PO DAILY for arthritis 03/25/20 Metoprolol Succinate (METOPROLOL SUCCINATE ( XL )) 100 Mg Tab.er.24h, 100 MG PO DAILY for HTN 03/25/20 Sitagliptin Phosphate (JANUVIA) 100 Mg Tablet, 1 TAB PO DAILY, #30 TAB 5 Refills 03/11/17 Glipizide (GLIPIZIDE ER) 10 Mg Tab.er.24, 1 TAB PO BID, #90 TAB 1 Refill 03/11/17 Levothyroxine Sodium (LEVOTHYROXINE SODIUM) 50 Mcg Tablet, 1 TAB PO DAILY, #30 TAB 5 Refills 03/11/17 Discontinued Reported Medications Amlodipine Besylate/Benazepril (LOTREL 10-20 MG CAPSULE) 1 Each Capsule, 1 CAP PO DAILY, #30 CAP 5 Refills 03/11/17 Triamterene/Hydrochlorothiazid (TRIAMTERENE-HCTZ 37.5-25 MG TB) 1 Each Tablet, 1 TAB PO BID, #30 TAB 5 Refills 03/11/17 Atenolol (ATENOLOL) 100 Mg Tablet, 1 TAB PO DAILY, #30 TAB 5 Refills 03/11/17 PERRI DIEHL III DO Apr 01, 2020 12:38
--- NOTE | 2020-04-01 12:48 | NUR ---
SS following up with discharge planning. SS reviewed pt chart and discussed with pt RN. Discharge orders received for [facility], ; fax [phone]. SS phoned and faxed discharge orders. Pt will discharge today and go to [facility] at 1300. [employer] to provide transportation. Pt, pt's RN, and pt's spouse notified.
--- NOTE | 2020-04-01 13:04 | SNU/HH DC ---
DISCHARGE ORDERS DISCHARGE INFORMATION: DISCHARGE DATE: Apr 01, 2020 FINAL DIAGNOSIS Problems Medical Problems: (1) Acute cystitis with hematuria Status: Acute (2) Community acquired pneumonia Status: Acute (3) Morbid obesity Status: Acute (4) Person under investigation for COVID-19 Status: Acute CONDITION ON DISCHARGE: Stable CODE STATUS: Code Status: Full POST DISCHARGE ORDERS: ACTIVITY ORDERS: Activity as tolerated WEIGHT BEARING STATUS: As tolerated DIET AFTER DISCHARGE: Cardiac OTHER ORDERS: INR needs checked every other day, needs to be 2.0 FOLLOW-UP: ADDITIONAL FOLLOW-UP: DR. BOJORQUEZ ON MAY 22, 2020 @ 10:00AM TREATMENT/EQUIPMENT ORDERS: ADAPTIVE EQUIPMENT NEEDED: None Physical Therapy For: Evalulation/Treatment Occupational Therapy For: Evaluation/Treatment DISCHARGE MEDICATIONS: Home Meds Active Scripts Urea (Urea) 198 Gm Cream..g., 1 CARLOS EDUARDO TP DAILY for dry skin for 30 Days, #30 EACH apply to legs and feet Prov:EMMA DIEHLL K III DO 04/01/20 Ammonium Lactate (Ammonium Lactate) 226 Gm Lotion, 1 CARLOS EDUARDO TP BID for dry skin for 30 Days, #1 MISC Prov:SHANITANIAL K III DO 04/01/20 Lanolin Alcohol/Mo/W.pet/[place] (Hydrocerin Cream) 454 Gm Cream..g., 1 CARLOS EDUARDO TP DAILY PRN for DRY SKIN / SCALING for 30 Days, #30 EACH Prov:ROXANELENIAL K III DO 04/01/20 Warfarin Sodium (JANTOVEN) 7.5 Mg Tablet, 7.5 MG PO DAILY16 for prevent clots for 30 Days, #30 TAB INR needs checked every other day and needs to be at least 2.0 Prov:EMMA DIEHLL K III DO 04/01/20 Cefdinir (CEFDINIR) 300 Mg Capsule, 300 MG PO BID for treat urine problems for 10 Days, #20 CAP Prov:CASTLENIAL K III DO 04/01/20 Reported Medications Furosemide (LASIX) 40 Mg Tablet, 40 MG PO PRN DAILY PRN for SEE COMMENTS, TAB TAKE NEEDED (DAILY) FOR LEG SWELLING AND CHF 04/01/20 Lisinopril (LISINOPRIL) 10 Mg Tablet, 10 MG PO DAILY for FOR HYPERTENSION, #30 TAB 0 Refills 04/01/20 Amlodipine Besylate (AMLODIPINE BESYLATE) 10 Mg Tablet, 10 MG PO DAILY for HYPERTENSION, TAB 8/25/20 Cefdinir (CEFDINIR) 300 Mg Capsule, 300 MG PO BID for for 10 Days, #20 CAP 0 Refills 04/01/20 Aspirin (ASPIRIN EC) 81 Mg Tablet.dr, 1 TAB PO DAILY for unknown, #30 TAB 3 Refills 03/25/20 Rosuvastatin Calcium (Rosuvastatin Calcium) 5 Mg Tablet, 5 MG PO QHS for unknown 03/25/20 Meloxicam (MELOXICAM) 15 Mg Tablet, 15 MG PO DAILY for arthritis 03/25/20 Metoprolol Succinate (METOPROLOL SUCCINATE ( XL )) 100 Mg Tab.er.24h, 100 MG PO DAILY for HTN 03/25/20 Sitagliptin Phosphate (JANUVIA) 100 Mg Tablet, 1 TAB PO DAILY, #30 TAB 5 Refills 03/11/17 Glipizide (GLIPIZIDE ER) 10 Mg Tab.er.24, 1 TAB PO BID, #90 TAB 1 Refill 03/11/17 Levothyroxine Sodium (LEVOTHYROXINE SODIUM) 50 Mcg Tablet, 1 TAB PO DAILY, #30 TAB 5 Refills 03/11/17 Discontinued Reported Medications Warfarin Sodium (WARFARIN SODIUM) 7.5 Mg Tablet, 7.5 MG PO DAILY for , TAB INR MUST BE 2.0 04/01/20 Amlodipine Besylate/Benazepril (LOTREL 10-20 MG CAPSULE) 1 Each Capsule, 1 CAP PO DAILY, #30 CAP 5 Refills 03/11/17 Triamterene/Hydrochlorothiazid (TRIAMTERENE-HCTZ 37.5-25 MG TB) 1 Each Tablet, 1 TAB PO BID, #30 TAB 5 Refills 03/11/17 Atenolol (ATENOLOL) 100 Mg Tablet, 1 TAB PO DAILY, #30 TAB 5 Refills 03/11/17 PERRI DIEHL III DO Apr 01, 2020 13:04
--- NOTE | 2020-04-01 13:27 | NUR ---
Discharge Note: PRATEEK JOYCE [address] Discharge instructions and discharge home medications reviewed with Other facility and a copy given. All questions have been answered and understanding verbalized. The following instructions and handouts were given: telephone report given to Stephanie at [facility], patient belongings in bag and sent with patient and transport team, wound care instructions and follow up appointment Discontinued lines and drains: peripheral IV discontinued, dressing clean, dry and intact. Patient discharged to SNU with tranport via stretcher
== END 2020-04-01 13:15 | DRG 871 ==
LOC: ER 00:29 → ED HOLD 06:17 → 6 SOUTH 07:49 → 2 SOUTH 03-28 18:47
PROVIDERS: ADMIT Internal Medicine; ATTEND Internal Medicine
DX: A41.50 Gram-negative sepsis, unspecified (principal); I50.33 Acute on chronic diastolic (congestive) heart failure; J18.9 Pneumonia, unspecified organism; J96.01 Acute respiratory failure with hypoxia; I24.8 Other forms of acute ischemic heart disease; I48.92 Unspecified atrial flutter; N17.9 Acute kidney failure, unspecified; N30.01 Acute cystitis with hematuria; Z68.44 Body mass index [BMI] 60.0-69.9, adult; B96.89 Other specified bacterial agents as the cause of diseases classified elsewhere; D69.6 Thrombocytopenia, unspecified; E03.9 Hypothyroidism, unspecified; E11.9 Type 2 diabetes mellitus without complications; E66.01 Morbid (severe) obesity due to excess calories; E78.5 Hyperlipidemia, unspecified; G47.33 Obstructive sleep apnea (adult) (pediatric); G89.29 Other chronic pain; I11.0 Hypertensive heart disease with heart failure; I48.0 Paroxysmal atrial fibrillation; K76.0 Fatty (change of) liver, not elsewhere classified; K76.1 Chronic passive congestion of liver; K80.20 Calculus of gallbladder without cholecystitis without obstruction; M19.90 Unspecified osteoarthritis, unspecified site; Z20.828 Contact with and (suspected) exposure to other viral communicable diseases; Z82.49 Family history of ischemic heart disease and other diseases of the circulatory system; Z87.440 Personal history of urinary (tract) infections; Z90.710 Acquired absence of both cervix and uterus; Z96.653 Presence of artificial knee joint, bilateral; Z79.899 Other long term (current) drug therapy; Z88.8 Allergy status to other drugs, medicaments and biological substances
CPT/HCPCS: 96365; 96375; 99285; C8929; 36415; 71045; 76705; 80048; 80053; 80061; 80076; 81001; 82962; 83036; 83605; 83690; 83735; 83880; 84443; 84484; 85007; 85025; 85520; 85610; 87040; 87077; 87086; 87186; 87205; 93005; J0360; J0456; J0692; J0696; J1644; J1815; J1885; J1940; J2405; J7050; P9612; Q9956; 97110-GP; 97116-GP; 97530-GO; 97530-GP; 97535-GO; G0378; J7030; Q0163; U0003-CS

== ENCOUNTER → 2020-06-12 | Outpatient (CLI) | payer MEDICARE ==
[~2020-06-12] MED LIST changes: +AMIO200T6 PO; +AMLO-187 PO; +AMMO225L5 TP; +ASPI-886 PO; +CEFD300C PO; +FURO-68 PO; +LEVO50TA78 PO; +LISI10TA2 PO; +MELO15TA23 PO; +METO-247 PO; +MINE454C9 TP; +ROSU5TAB12 PO; +UREA198C TP; +WARF7.5T45 PO; +WARF7.5T7 PO
== END ==
LOC: LAB 13:25
PROVIDERS: ATTEND Internal Medicine Cardiovascular Disease
DX: Z01.812 Encounter for preprocedural laboratory examination (principal); I48.92 Unspecified atrial flutter; Z20.828 Contact with and (suspected) exposure to other viral communicable diseases
CPT/HCPCS: U0003

== ENCOUNTER 2020-06-16 08:48 | Day surgery (SDC) | payer MEDICARE ==
[~2020-06-16] VITALS: Ht 165.1 cm; Wt 164.2 kg
[~2020-06-16 08:48] MED LIST changes: +DEXTROSE 5% IV ONE; +DOBUTAMINE IV ONE; +IV RINGERS,LACTATED 1000ML 1,000 ML IV SCH
[2020-06-16] MEDS ORDERED: PROPOFOL 10 MG/ML (20ML) VIAL. IV ONE (10:06)
[2020-06-16] MEDS ORDERED: ETOMIDATE 20 MG/10 ML VIAL. IV ONE (10:20)
[2020-06-16] MEDS ORDERED: KETAMINE HCL IN NACL, ISO-OSM 50 MG/5 ML SYRINGE ONE (10:20)
[2020-06-16] MEDS ORDERED: LIDOCAINE 2% TOPICAL JELLY 30GM TUBE. TP ONE ×2 (10:23→10:30)
[2020-06-16] MEDS ORDERED: BENZOCAINE ONE 20% MUCOSAL SPRAY. (10:23)
[2020-06-16] MEDS ORDERED: LIDOCAINE 2% VISCOUS 15 ML SOLUTION. ONE (10:24)
[2020-06-16] MEDS ORDERED: LIDOCAINE 2% VISCOUS 15 ML SOLUTION. SWSW ONE (10:30)
[2020-06-16] MEDS ORDERED: BENZOCAINE ONE 20% MUCOSAL SPRAY. MM (10:30)
[2020-06-16] MEDS ORDERED: METOPROLOL TARTRATE 5 MG/5 ML VIAL. IVP ONE (10:58)
[2020-06-16] MEDS ORDERED: ESMOLOL 100 MG/10 ML VIAL. IVP ONE (12:00)
[2020-06-16] MEDS ORDERED: ATROPINE 0.5 MG/5 ML DISP.SYRINGE. ONE (12:00)
[2020-06-16 12:15] VITALS: BP 141/53
--- NOTE | 2020-06-16 16:17 | CARD ---
MR#: [id number] Date of Study: 06/16/2020 Ordering Physician: NESS WOOD, Referring Physician: NESS WOOD, Tech: AprilIsabela Olson APPROVED REPORT INDICATION Aflutter and elevated troponin in morbidly obese patient RISK FACTORS Hypertension Hyperlipidemia Diabetes Reason : Patient complained of shortness of breath PROCEDURE The patient underwent a Pharmacological Stress Test using Dobutamine. Blood pressure, heart rate, and EKG were monitored. An Echocardiogram was performed by personnel and payroll technician in four stages in quad fashion. At peak stress four se lected images were obtained and placed side by side with resting images for comparison. STRESS ECHO FINDINGS The resting Echocardiogram showed normal left ventricular systolic contractility with an estimated Ej ection Fraction of about 60 %. The Resting Echocardiogram showed normal augmentation of myocardial wall segments using a 16 segment model. The Stress Echocardiogram showed normal augmentation of myocardial wall segments using a 16 segment m paris. The Stress Echocardiogram left ventricular systolic contractility has an estimated Ejection Fraction of about >70%. Test Type: Pharmacological Stress Nurse/Tech: Shyla Watson RN Test Indications: A-fib/flutter,NSTEMI Cardiac History and Allergies: see EMR Medications: see EMR Medical History: see EMR Resting ECG: a-fib Resting Heart Rate: 74 bpm Resting Blood Pressure: 132/76mmHg Pretest Chest Pain: No chest pain Nurse/Tech Notes S1,S2 and lungs diminished. PACU prepped patient for procedure and Calvin BEAD FILLER administered sedation and other medications during ATUL/Dobutamine stress test. Pharm. Details Pharmacologic stress testing was performed using Dobutamine with a maximal infusion of 40 mcg/mg/min. Atropine 0.3 mg, given intravenously for Stress Symptoms No chest pain or symptoms. POST EXERCISE Reason for Termination: Reached target heart rate Target HR: Yes Max HR: 135 bpm 104% of Maximum Predicted HR: 129 bpm Blood Pressure response to exercise: Normal blood pressure response during stress. Chest Pain: No. Arrhythmia: Yes. PVCs ST Change: No. INTERPRETATION Stress EKG Conclusion: Baseline EKG showed sinus rhythm. No ischemic changes at peak stress. No arr hythmias. Preliminary Notification Critical Value: No <Conclusion> Dobutamine infusion stress transesophageal echocardiogram did not show any evidence of ischemia or in farct. Normal left ventricle systolic function with ejection fraction estimated at 60%. Low risk for cardiac events. Signed by : Ness Wood, Electronically Approved : 06/16/2020 16:16:32
== END 2020-06-16 13:09 | disposition home or self-care (01) ==
LOC: SURG 08:48
PROVIDERS: ATTEND Internal Medicine Cardiovascular Disease
DX: I48.92 Unspecified atrial flutter (principal); R77.8 Other specified abnormalities of plasma proteins; E66.01 Morbid (severe) obesity due to excess calories; I11.0 Hypertensive heart disease with heart failure; I50.9 Heart failure, unspecified; E78.00 Pure hypercholesterolemia, unspecified; G47.30 Sleep apnea, unspecified; E03.9 Hypothyroidism, unspecified; E11.9 Type 2 diabetes mellitus without complications; M19.90 Unspecified osteoarthritis, unspecified site; Z90.710 Acquired absence of both cervix and uterus; Z98.890 Other specified postprocedural states; Z79.899 Other long term (current) drug therapy; Z79.82 Long term (current) use of aspirin; Z88.8 Allergy status to other drugs, medicaments and biological substances; Z68.44 Body mass index [BMI] 60.0-69.9, adult
CPT/HCPCS: 82962; 93017; 93312; 93350; J0461; J1250; J2704; J3490; J7060